=== PATIENT | female | born 1950 | race Caucasian/White ===

== ENCOUNTER → 2017-02-11 | Outpatient (CLI) | payer MEDICARE, OTHER ==
[2017-02-11 13:09] LABS: CHLORIDE,CL 104 mmol/L (98-110); SODIUM,NA 144 mmol/L (136-146)
== END ==
LOC: MW.CHFP 12:00
PROVIDERS: ATTEND Student in an Organized Health Care Education/Training Program
DX: E03.9 Hypothyroidism, unspecified (principal); E87.6 Hypokalemia; F41.9 Anxiety disorder, unspecified; J44.9 Chronic obstructive pulmonary disease, unspecified; R07.9 Chest pain, unspecified
CPT/HCPCS: 36415; 80053; 80061; 84443; G0463

== ENCOUNTER → 2017-02-27 | Outpatient (CLI) | payer MEDICARE, OTHER | LOC: MW.CHFP 10:52 | PROVIDERS: ATTEND Student in an Organized Health Care Education/Training Program | DX: M33.20 Polymyositis, organ involvement unspecified (principal) | CPT/HCPCS: 36415; 85652; G0463 ==

== ENCOUNTER 2017-05-21 10:45 | Emergency (ER) | payer MEDICARE, OTHER ==
[2017-05-21] MEDS ORDERED: Sodium Chloride 0.9% 2.5 ML Syringe FLUSH PRN (10:51)
[2017-05-21] MEDS ORDERED: Sodium Chloride 0.9% 10 ML Syringe FLUSH PRN (10:51)
--- NOTE | 2017-05-21 10:54 | EDM.PDOC ---
ED HPI GENERAL MEDICAL PROBLEM - General Stated Complaint: UNK Time Seen by Provider: 05/21/17 10:53 Source of Information: Reports: Patient History Limitations: Reports: No Limitations - History of Present Illness INITIAL COMMENTS - FREE TEXT/NARRATIVE: HISTORY AND PHYSICAL: []Extent 67-year-old female who is in pulmonary rehabilitation has sudden bouts of dizziness History of Present Illness: []Very pleasant female 15-20 minutes before arrival in the emergency department started having dizziness Review of Systems: As per history of present illness and below otherwise all systems reviewed and negative. Past medical history: As per history of present illness and as reviewed below otherwise noncontributory. Surgical history: As per history of present illness and as reviewed below otherwise noncontributory. Social history: No reported history of drug or alcohol abuse. Family history: As per history of present illness and as reviewed below otherwise noncontributory. Physical exam: Alert and oriented female who is speaking in full sentences answering questions appropriately HEENT: Atraumatic, normocehpalic, pupils reactive, negative for conjunctival pallor or scleral icterus, mucous membranes dry, throat clear, neck supple, nontender, trachea midline. Lungs: Clear to auscultation, breath sounds equal bilaterally, chest non tender. Heart: S1S2, regular, negative for clicks, rubs, or JVD. Abdomen: Soft, nondistended, nontender. Negative for masses or hepatossplenmegaly. Negative for costovertebral tenderness. Pelvis: Stable nontender. Genitourinary: Deferred. Rectal: Deferred Extremities: Atraumatic, negative for cords or calf pain. Neurovascular unremarkable. Neuro: Awake, alert, oriented. Cranial nerves II through XII unremarkable. Cerebellum unremarkable. Motor and sensory unremarkable throughout. Exam nonfocal. Diagnostics: []Head CT is negative CBC CMP troponin Therapeutics: []1 L normal saline Impression: [Vertigo] Plan: [Home Meclizine 25 mg up to 3 times daily as needed for dizziness Follow-up with Dr. Graham next week] Definitive disposition and diagnosis as appropriate pending reevaluation and review of above. Onset: Today, Sudden Duration: Minutes: Location: Reports: Head Severity: Severe Improves with: Reports: None Worsens with: Reports: Movement Context: Reports: Other (was in pulmonary rehab) Associated Symptoms: Reports: No Other Symptoms Temporal Head Pain Score (Numeric/FACES): 9 - Related Data Allergies Allergy/AdvReac Type Severity Reaction Status Date / Time levothyroxine sodium Allergy UNKNOWN Verified 05/21/17 10:47 [From Levothroid] methotrexate Allergy UNKNOWN Verified 05/21/17 10:47 Home Meds: Home Meds Fluticasone/Salmeterol [Advair 500-50] 1 inh IH BID 06/15/14 [History] Tiotropium [Spiriva HandiHaler] 18 mcg IH DAILY 06/15/14 [History] Thyroid [[place] Thyroid] 500 mg PO DAILY 01/02/15 [History] predniSONE [Prednisone] 10 mg PO DAILY 11/23/15 [History] Meclizine [Antivert] 25 mg PO TID PRN #12 tablet 05/21/17 [Rx] Past Medical History HEENT History: Reports: Other (See Below) Other HEENT History: wears corrective glasses fro reading Cardiovascular History: Reports: None Respiratory History: Reports: COPD, Pneumonia, Recurrent Gastrointestinal History: Reports: None Genitourinary History: Reports: UTI, Recurrent [employer] History: Reports: None Musculoskeletal History: Reports: None Neurological History: Reports: Migraines Psychiatric History: Reports: Anxiety, Depression Other Psychiatric History: no medication taken, not seen any Dr. for it Endocrine/Metabolic History: Reports: Hypothyroidism Hematologic History: Reports: Other (See Below) Other Hematologic History: Polymyocytosis Immunologic History: Reports: None Oncologic (Cancer) History: Reports: None Dermatologic History: Reports: None - Infectious Disease History Infectious Disease History: Reports: Chicken Pox, Measles, Mumps, Rubella - Past Surgical History GI Surgical History: Reports: Appendectomy, Other (See Below) Female Surgical History: Reports: Hysterectomy, Oophorectomy, Salpingo- Oophorectomy Musculoskeletal Surgical History: Reports: Other (See Below) Social & Family History - Family History Family Medical History: Noncontributory HEENT: Reports: Cataract Cardiac: Reports: Heart Valve Replacement, [place], Prior Cardiac Arrest Respiratory: Reports: COPD OBGYN: Reports: Musculoskeletal: Reports: Arthritis Neurological: Reports: Dementia Psychiatric: Reports: Anxiety, Depression Endocrine/Metabolic: Reports: Diabetes, type II Oncologic: Reports: Colon, Lung - Tobacco Use Smoking Status *Q: Current Every Day Smoker Years of Tobacco use: 40 Packs/Tins Daily: 1 Used Tobacco, but Quit: No Second Hand Smoke Exposure: Yes - Alcohol Use Days Per Week of Alcohol Use: 0 - Recreational Drug Use Recreational Drug Use: No ED ROS GENERAL - Review of Systems Review Of Systems: ROS reveals no pertinent complaints other than HPI. ED EXAM, DIZZINESS - Physical Exam Exam: See Below (See dictation) Course - Vital Signs Last Recorded V/S: Last Vital Signs Temp 36.8 C 05/21/17 10:49 Pulse 85 05/21/17 11:26 Resp 16 05/21/17 11:26 BP 125/69 05/21/17 11:26 Pulse Ox 98 05/21/17 11:26 - Orders/Labs/Meds Orders: Active Orders 24 hr Category Date Time Status EKG Documentation Completion [RC] STAT Care 05/21/17 10:51 Active UA W/MICROSCOPIC [URIN] Stat Lab 05/21/17 10:51 Uncollected Sodium Chloride 0.9% [Saline Flush] Med 05/21/17 10:51 Active 10 ml FLUSH ASDIRECTED PRN Sodium Chloride 0.9% [Saline Flush] Med 05/21/17 10:51 Active 2.5 ml FLUSH ASDIRECTED PRN Saline Lock Insert [OM.PC] Stat Oth 05/21/17 10:51 Ordered Medication Orders Sodium Chloride (Saline Flush) 10 ml FLUSH ASDIRECTED PRN PRN Reason: Keep Vein Open Sodium Chloride (Saline Flush) 2.5 ml FLUSH ASDIRECTED PRN PRN Reason: Keep Vein Open Labs: Laboratory Tests 05/21/17 05/21/17 05/21/17 Range/Units 10:57 10:57 10:57 WBC 12.51 H (4.0-11.0) K/uL RBC 4.36 (4.30-5.90) M/uL Hgb 13.1 (12.0-16.0) g/dL Hct 38.8 (36.0-46.0) % MCV 89.0 (80.0-98.0) fL MCH 30.0 (27.0-32.0) pg MCHC 33.8 (31.0-37.0) g/dL RDW Std Deviation 49.6 (28.0-62.0) fl RDW Coeff of Doris 15 (11.0-15.0) % Plt Count 359 (150-400) K/uL MPV 9.60 (7.40-12.00) fL Neut % (Auto) 83.7 H (48.0-80.0) % Lymph % (Auto) 8.2 L (16.0-40.0) % [place] % (Auto) 7.4 (0.0-15.0) % Eos % (Auto) 0.5 (0.0-7.0) % Baso % (Auto) 0.2 (0.0-1.5) % Neut # (Auto) 10.5 H (1.4-5.7) K/uL Lymph # (Auto) 1.0 (0.6-2.4) K/uL [place] # (Auto) 0.9 H (0.0-0.8) K/uL Eos # (Auto) 0.1 (0.0-0.7) K/uL Baso # (Auto) 0.0 (0.0-0.1) K/uL Nucleated RBC % 0.0 /100WBC Nucleated RBCs # 0 K/uL Sodium 139 (136-146) mmol/L Potassium 3.5 (3.5-5.1) mmol/L Chloride 103 (98-110) mmol/L Carbon Dioxide 22 (21-31) mmol/L BUN 9 (6.0-23.0) mg/dL Creatinine 0.8 (0.6-1.5) mg/dL Est Cr Clr Drug Dosing 57.66 mL/min Estimated GFR (MDRD) > 60.0 ml/min Glucose 88 (60-110) mg/dL Calcium 8.7 L (8.8-10.8) mg/dL Total Bilirubin 0.3 (0.1-1.5) mg/dL AST 14 (5-40) IU/L ALT 13 (8-54) IU/L Alkaline Phosphatase 98 (40-150) Troponin I < 0.10 (0.0-0.29) NG/ML Total Protein 7.1 (6.0-8.0) g/dL Albumin 4.2 (3.4-4.8) g/dL Globulin 2.9 (2.0-3.5) g/dL Albumin/Globulin Ratio 1.4 (1.3-2.8) Meds: Medications Generic Name Dose Route Start Last Admin Trade Name Freq PRN Reason Stop Dose Admin Sodium Chloride 10 ml 05/21/17 10:51 Saline Flush FLUSH ASDIRECTED PRN Keep Vein Open Sodium Chloride 2.5 ml 05/21/17 10:51 Saline Flush FLUSH ASDIRECTED PRN Keep Vein Open Discontinued Medications Generic Name Dose Route Start Last Admin Trade Name Freq PRN Reason Stop Dose Admin Sodium Chloride 1,000 mls @ 999 mls/hr 05/21/17 10:59 05/21/17 11:22 Normal Saline IV 05/21/17 11:59 999 mls/hr STAT ONE Administration Departure - Departure Time of Disposition: 12:16 Disposition: Home, Self-Care 01 Condition: Good Clinical Impression: Vertigo - Discharge Information Prescriptions: Meclizine [Antivert] 25 mg PO TID PRN #12 tablet PRN Reason: Dizziness Additional Instructions: The following information is given to patients seen in the emergency department who are being discharged to home. This information is to outline your options for follow-up care. We provide all patients seen in our emergency department with a follow-up referral. The need for follow-up, as well as the timing and circumstances, are variable depending upon the specifics of your emergency department visit. If you don't have a primary care physician on staff, we will provide you with a referral. We always advise you to contact your personal physician following an emergency department visit to inform them of the circumstance of the visit and for follow-up with them and/or the need for any referrals to a consulting specialist. The emergency department will also refer you to a specialist when appropriate. This referral assures that you have the opportunity for followup care with a specialist. All of these measure are taken in an effort to provide you with optimal care, which includes your followup. Under all circumstances we always encourage you to contact your private physician who remains a resource for coordinating your care. When calling for followup care, please make the office aware that this follow-up is from your recent emergency room visit. If for any reason you are refused follow-up, please contact the [facility] emergency department at and asked to speak to the emergency department charge nurse. Follow-up with Dr. Graham next week please call for an appointment Meclizine has been electronically sent to your pharmacy service drug. - My Orders Last 24 Hours: My Active Orders 05/21/17 10:51 EKG Documentation Completion [RC] STAT UA W/MICROSCOPIC [URIN] Stat Sodium Chloride 0.9% [Saline Flush] 10 ml FLUSH ASDIRECTED PRN Sodium Chloride 0.9% [Saline Flush] 2.5 ml FLUSH ASDIRECTED PRN Saline Lock Insert [OM.PC] Stat - Assessment/Plan Last 24 Hours: My Active Orders 05/21/17 10:51 EKG Documentation Completion [RC] STAT UA W/MICROSCOPIC [URIN] Stat Sodium Chloride 0.9% [Saline Flush] 10 ml FLUSH ASDIRECTED PRN Sodium Chloride 0.9% [Saline Flush] 2.5 ml FLUSH ASDIRECTED PRN Saline Lock Insert [OM.PC] Stat
[2017-05-21] MEDS ORDERED: Sodium Chloride 0.9% 1,000 ML IV ONE (10:59)
--- NOTE | 2017-05-21 11:36 | CT ---
CT brain scan/clinical history dizziness and headache after exercise Trouble computed tomographic sections of the brain were acquired without intravenous contrast Findings: The ventricles and sulci are normal. There is no evidence of acute mass edema hemorrhage o r space-occupying abnormality. Impression: Normal CT brain scan
[2017-05-21 11:38] LABS: CHLORIDE,CL 103 mmol/L (98-110); SODIUM,NA 139 mmol/L (136-146)
[2017-05-21 13:14] VITALS: BP 119/55
== END 2017-05-21 13:12 | disposition home or self-care (01) ==
LOC: MW.ED 10:45
DX: R42 Dizziness and giddiness (principal); J44.9 Chronic obstructive pulmonary disease, unspecified; E03.9 Hypothyroidism, unspecified; F17.210 Nicotine dependence, cigarettes, uncomplicated; Z90.49 Acquired absence of other specified parts of digestive tract; Z88.8 Allergy status to other drugs, medicaments and biological substances; Z87.01 Personal history of pneumonia (recurrent); Z87.440 Personal history of urinary (tract) infections; Z90.710 Acquired absence of both cervix and uterus; Z79.899 Other long term (current) drug therapy
CPT/HCPCS: 36415; 70450; 80053; 81001; 84484; 85025; 93005; 96360; 99284; J7040; 99283

== ENCOUNTER 2017-09-05 22:20 | Inpatient (IN) | payer MEDICARE, OTHER ==
[2017-09-05] MEDS ORDERED: Sodium Chloride 0.9% 1,000 ML IV ONE (22:32)
[2017-09-05] MEDS ORDERED: methylPREDNISolone Sodium Succinate 125 MG/2 ML SDV IVPUSH ONE (22:33)
[2017-09-05] MEDS ORDERED: Albuterol/Ipratropium 3.0-0.5 MG/3 ML Neb Soln NEB ONE (22:33)
--- NOTE | 2017-09-05 22:35 | EDM.PDOC ---
ED HPI GENERAL MEDICAL PROBLEM - General Chief Complaint: Respiratory Problem Stated Complaint: SHAKES,HARD TIME BREATHING Time Seen by Provider: 09/05/17 22:34 Source of Information: Reports: Patient - History of Present Illness INITIAL COMMENTS - FREE TEXT/NARRATIVE: HISTORY AND PHYSICAL: History of present illness: [Patient presents short of breath she has a history of COPD and significant smoking history for packs daily for 50 years, labored breathing on arrival with slight wheeze her chest was tight on examination did provide DuoNeb and Solu- Medrol which has improved symptoms she is satting 90% on 2 L nasal cannula able to speak full sentences no distress ] Review of systems: As per history of present illness and below otherwise all systems reviewed and negative. Past medical history: As per history of present illness and as reviewed below otherwise noncontributory. Surgical history: As per history of present illness and as reviewed below otherwise noncontributory. Social history: No reported history of drug or alcohol abuse. Family history: As per history of present illness and as reviewed below otherwise noncontributory. Physical exam: HEENT: Atraumatic, normocephalic, pupils reactive, negative for conjunctival pallor or scleral icterus, mucous membranes moist, throat clear, neck supple, nontender, trachea midline. Lungs: Clear to auscultation, breath sounds equal bilaterally, chest nontender. Post DuoNeb Heart: S1S2, regular, negative for clicks, rubs, or JVD. Abdomen: Soft, nondistended, nontender. Negative for masses or hepatosplenomegaly. Negative for costovertebral tenderness. Pelvis: Stable nontender. Genitourinary: Deferred. Rectal: Deferred. Extremities: Atraumatic, negative for cords or calf pain. Neurovascular unremarkable. Neuro: Awake, alert, oriented. Cranial nerves II through XII unremarkable. Cerebellum unremarkable. Motor and sensory unremarkable throughout. Exam nonfocal. Diagnostics: []Lab as below EKG Chest 1 view Therapeutics: []Total saline TKO Solu-Medrol 125 mg IV DuoNeb Impression: []Shortness of breath COPD exacerbation Definitive disposition and diagnosis as appropriate pending reevaluation and review of above. - Related Data Allergies Allergy/AdvReac Type Severity Reaction Status Date / Time levothyroxine sodium Allergy UNKNOWN Verified 09/05/17 22:25 [From Levothroid] methotrexate Allergy UNKNOWN Verified 09/05/17 22:25 Home Meds: Home Meds Fluticasone/Salmeterol [Advair 500-50] 1 inh IH BID 06/15/14 [History] Tiotropium [Spiriva HandiHaler] 18 mcg IH DAILY 06/15/14 [History] Thyroid [[place] Thyroid] 500 mg PO DAILY 01/02/15 [History] predniSONE [Prednisone] 10 mg PO DAILY 11/23/15 [History] Meclizine [Antivert] 25 mg PO TID PRN #12 tablet 05/21/17 [Rx] Levofloxacin 750 mg PO DAILY 09/05/17 [History] Past Medical History HEENT History: Reports: Other (See Below) Other HEENT History: wears corrective glasses fro reading Cardiovascular History: Reports: None Respiratory History: Reports: COPD, Pneumonia, Recurrent Gastrointestinal History: Reports: None Genitourinary History: Reports: UTI, Recurrent SU[employer] History: Reports: None Musculoskeletal History: Reports: None Neurological History: Reports: Migraines Psychiatric History: Reports: Anxiety, Depression Other Psychiatric History: no medication taken, not seen any DrCharles for it Endocrine/Metabolic History: Reports: Hypothyroidism Hematologic History: Reports: Other (See Below) Other Hematologic History: Polymyocytosis Immunologic History: Reports: None Oncologic (Cancer) History: Reports: None Dermatologic History: Reports: None - Infectious Disease History Infectious Disease History: Reports: Chicken Pox, Measles, Mumps, Rubella - Past Surgical History Head Surgeries/Procedures: Reports: None HEENT Surgical History: Reports: None Respiratory Surgical History: Reports: None GI Surgical History: Reports: Appendectomy, Other (See Below) Female Surgical History: Reports: Hysterectomy, Oophorectomy, Salpingo- Oophorectomy Musculoskeletal Surgical History: Reports: Other (See Below) Social & Family History - Family History Family Medical History: Noncontributory HEENT: Reports: Cataract Cardiac: Reports: Heart Valve Replacement, [place], Prior Cardiac Arrest Respiratory: Reports: COPD OBGYN: Reports: Musculoskeletal: Reports: Arthritis Neurological: Reports: Dementia Psychiatric: Reports: Anxiety, Depression Endocrine/Metabolic: Reports: Diabetes, type II Oncologic: Reports: Colon, Lung - Tobacco Use Smoking Status *Q: Former Smoker Years of Tobacco use: 40 Packs/Tins Daily: 1 Used Tobacco, but Quit: Yes Month Tobacco Last Used: 10 Second Hand Smoke Exposure: Yes - Caffeine Use Caffeine Use: Reports: Soda - Alcohol Use Days Per Week of Alcohol Use: 0 - Recreational Drug Use Recreational Drug Use: No ED ROS GENERAL - Review of Systems Review Of Systems: ROS reveals no pertinent complaints other than HPI. ED EXAM, GENERAL - Physical Exam Exam: See Below Course - Vital Signs Last Recorded V/S: Last Vital Signs Temp 98.3 F 09/05/17 23:50 Pulse 116 H 09/05/17 23:50 Resp 18 09/05/17 23:50 BP 124/62 09/05/17 23:50 Pulse Ox 93 L 09/05/17 23:50 - Orders/Labs/Meds Orders: Active Orders 24 hr Category Date Time Status EKG Documentation Completion [RC] STAT Care 09/05/17 22:33 Active RT Aerosol Therapy [RC] ASDIRECTED Care 09/05/17 22:34 Active Chest 1V Frontal [CR] Stat Exams 09/05/17 22:33 Taken Sodium Chloride 0.9% [Normal Saline] 1,000 ml Med 09/05/17 22:32 Active IV STAT Medication Orders Sodium Chloride (Normal Saline) 1,000 mls @ 30 mls/hr IV STAT ONE Stop: 09/07/17 07:51 Last Admin: 09/05/17 22:52 Dose: 30 mls/hr Labs: Laboratory Tests 09/05/17 09/05/17 09/05/17 Range/Units 22:48 22:48 22:48 WBC 14.14 H (4.0-11.0) K/uL RBC 3.90 L (4.30-5.90) M/uL Hgb 11.2 L (12.0-16.0) g/dL Hct 33.7 L (36.0-46.0) % MCV 86.4 (80.0-98.0) fL MCH 28.7 (27.0-32.0) pg MCHC 33.2 (31.0-37.0) g/dL RDW Std Deviation 45.1 (28.0-62.0) fl RDW Coeff of Doris 15 (11.0-15.0) % Plt Count 363 (150-400) K/uL MPV 9.50 (7.40-12.00) fL Neut % (Auto) 84.5 H (48.0-80.0) % Lymph % (Auto) 6.0 L (16.0-40.0) % [place] % (Auto) 9.4 (0.0-15.0) % Eos % (Auto) 0.0 (0.0-7.0) % Baso % (Auto) 0.1 (0.0-1.5) % Neut # (Auto) 11.9 H (1.4-5.7) K/uL Lymph # (Auto) 0.9 (0.6-2.4) K/uL [place] # (Auto) 1.3 H (0.0-0.8) K/uL Eos # (Auto) 0.0 (0.0-0.7) K/uL Baso # (Auto) 0.0 (0.0-0.1) K/uL Nucleated RBC % 0.0 /100WBC Nucleated RBCs # 0 K/uL INR 1.11 (0.86-1.11) Sodium 136 (136-146) mmol/L Potassium 3.5 (3.5-5.1) mmol/L Chloride 98 (98-110) mmol/L Carbon Dioxide 22 (21-31) mmol/L BUN 14 (6.0-23.0) mg/dL Creatinine 1.1 (0.6-1.5) mg/dL Est Cr Clr Drug Dosing 44.66 mL/min Estimated GFR (MDRD) 49.5 ml/min Glucose 119 H (60-110) mg/dL Calcium 9.4 (8.8-10.8) mg/dL Total Bilirubin 0.4 (0.1-1.5) mg/dL AST 12 (5-40) IU/L ALT 12 (8-54) IU/L Alkaline Phosphatase 94 (40-150) Creatine Kinase 118 (9-236) IU/L CK-MB (CK-2) 6.2 (0-6.6) ng/ml Troponin I < 0.10 (0.0-0.29) NG/ML B-Natriuretic Peptide (<100) PG/ML Total Protein 7.3 (6.0-8.0) g/dL Albumin 4.0 (3.4-4.8) g/dL Globulin 3.3 (2.0-3.5) g/dL Albumin/Globulin Ratio 1.2 L (1.3-2.8) Urine Color Urine Appearance Urine pH (5.0-8.0) Ur Specific [place] (1.001-1.035) Urine Protein (NEGATIVE) mg/dL Urine Glucose (UA) (NEGATIVE) mg/dL Urine Ketones (NEGATIVE) mg/dL Urine Occult Blood (NEGATIVE) Urine Nitrite (NEGATIVE) Urine Bilirubin (NEGATIVE) Urine Urobilinogen (<2.0) EU/dL Ur Leukocyte Esterase (NEGATIVE) Urine RBC (0-2/HPF) Urine WBC (0-5/HPF) Ur Epithelial Cells (NONE-FEW) Urine Bacteria (NEGATIVE) 09/05/17 09/05/17 Range/Units 22:48 23:38 WBC (4.0-11.0) K/uL RBC (4.30-5.90) M/uL Hgb (12.0-16.0) g/dL Hct (36.0-46.0) % MCV (80.0-98.0) fL MCH (27.0-32.0) pg MCHC (31.0-37.0) g/dL RDW Std Deviation (28.0-62.0) fl RDW Coeff of Doris (11.0-15.0) % Plt Count (150-400) K/uL MPV (7.40-12.00) fL Neut % (Auto) (48.0-80.0) % Lymph % (Auto) (16.0-40.0) % [place] % (Auto) (0.0-15.0) % Eos % (Auto) (0.0-7.0) % Baso % (Auto) (0.0-1.5) % Neut # (Auto) (1.4-5.7) K/uL Lymph # (Auto) (0.6-2.4) K/uL [place] # (Auto) (0.0-0.8) K/uL Eos # (Auto) (0.0-0.7) K/uL Baso # (Auto) (0.0-0.1) K/uL Nucleated RBC % /100WBC Nucleated RBCs # K/uL INR (0.86-1.11) Sodium (136-146) mmol/L Potassium (3.5-5.1) mmol/L Chloride (98-110) mmol/L Carbon Dioxide (21-31) mmol/L BUN (6.0-23.0) mg/dL Creatinine (0.6-1.5) mg/dL Est Cr Clr Drug Dosing mL/min Estimated GFR (MDRD) ml/min Glucose (60-110) mg/dL Calcium (8.8-10.8) mg/dL Total Bilirubin (0.1-1.5) mg/dL AST (5-40) IU/L ALT (8-54) IU/L Alkaline Phosphatase (40-150) Creatine Kinase (9-236) IU/L CK-MB (CK-2) (0-6.6) ng/ml Troponin I (0.0-0.29) NG/ML B-Natriuretic Peptide < 15 (<100) PG/ML Total Protein (6.0-8.0) g/dL Albumin (3.4-4.8) g/dL Globulin (2.0-3.5) g/dL Albumin/Globulin Ratio (1.3-2.8) Urine Color YELLOW Urine Appearance CLEAR Urine pH 6.0 (5.0-8.0) Ur Specific [place] 1.010 (1.001-1.035) Urine Protein NEGATIVE (NEGATIVE) mg/dL Urine Glucose (UA) NEGATIVE (NEGATIVE) mg/dL Urine Ketones NEGATIVE (NEGATIVE) mg/dL Urine Occult Blood TRACE-INTACT (NEGATIVE) Urine Nitrite NEGATIVE (NEGATIVE) Urine Bilirubin NEGATIVE (NEGATIVE) Urine Urobilinogen 0.2 (<2.0) EU/dL Ur Leukocyte Esterase NEGATIVE (NEGATIVE) Urine RBC 0-3 (0-2/HPF) Urine WBC 0-2 (0-5/HPF) Ur Epithelial Cells MODERATE (NONE-FEW) Urine Bacteria FEW (NEGATIVE) Meds: Medications Generic Name Dose Route Start Last Admin Trade Name Freq PRN Reason Stop Dose Admin Sodium Chloride 1,000 mls @ 30 mls/hr 09/05/17 22:32 09/05/17 22:52 Normal Saline IV 09/07/17 07:51 30 mls/hr STAT ONE Administration Discontinued Medications Generic Name Dose Route Start Last Admin Trade Name Freq PRN Reason Stop Dose Admin Albuterol/Ipratropium 3 ml 09/05/17 22:33 09/05/17 22:52 Duoneb 3.0-0.5 Mg/3 Ml NEB 09/05/17 22:34 3 ml ONETIME ONE Administration Methylprednisolone Sodium Succinate 125 mg 09/05/17 22:33 09/05/17 22:51 Solu-Medrol IVPUSH 09/05/17 22:34 125 mg ONETIME ONE Administration Departure - Departure Time of Disposition: 00:11 Disposition: Admitted As Inpatient 66 Condition: Fair Clinical Impression: COPD exacerbation - Discharge Information Forms: ED Department Discharge - My Orders Last 24 Hours: My Active Orders 09/05/17 22:32 Sodium Chloride 0.9% [Normal Saline] 1,000 ml IV STAT 09/05/17 22:33 EKG Documentation Completion [RC] STAT Chest 1V Frontal [CR] Stat 09/05/17 22:34 RT Aerosol Therapy [RC] ASDIRECTED - Assessment/Plan Last 24 Hours: My Active Orders 09/05/17 22:32 Sodium Chloride 0.9% [Normal Saline] 1,000 ml IV STAT 09/05/17 22:33 EKG Documentation Completion [RC] STAT Chest 1V Frontal [CR] Stat 09/05/17 22:34 RT Aerosol Therapy [RC] ASDIRECTED
[2017-09-05 23:21] LABS: CHLORIDE,CL 98 mmol/L (98-110); SODIUM,NA 136 mmol/L (136-146)
[2017-09-06] MEDS ORDERED: Sodium Chloride 0.9% 2.5 ML Syringe FLUSH SCH (01:45)
[2017-09-06] MEDS: methylPREDNISolone Sodium Succinate 125 MG/2 ML SDV IVPUSH SCH ×4 (04:27→21:41)
[2017-09-06] MEDS: Acetaminophen 325 MG Tab PO PRN (04:29)
[2017-09-06] MEDS ORDERED: Albuterol/Ipratropium 3.0-0.5 MG/3 ML Neb Soln NEB SCH (06:00)
[2017-09-06] MEDS ORDERED: Thyroid 60 MG Tab PO SCH (09:00)
--- NOTE | 2017-09-06 09:51 | CR ---
EXAM DATE: 09/06/17 PATIENT'S AGE: 67 Patient: MEDINA SANCHES Facility: [place], [place] Site . Site : 1950 Study: XRay Chest [id number]/25/2017 11:15:07 PM Ordering Physician: Josesito Fritz Final Report: INDICATION: sob TECHNIQUE: Chest 1 view. COMPARISON: None. FINDINGS: Cardiovascular and mediastinum: Heart size and vasculature are normal in caliber and appearance. Mediastinum is within normal limits. Lungs and pleural space: Lungs are clear. No sign of infiltrate or mass. No sign of pleural effusion. No pneumothorax. Bones and soft tissues: No significant findings. IMPRESSION: Unremarkable chest. Dictated by: Brian Wayne MD @ 09/05/2017 23:54:25 (Electronic Signature) Report Signed by Proxy. [facility] MEM[facility]IAL MEDICAL CENTERMatthieu
[2017-09-06] MEDS: Albuterol/Ipratropium 3.0-0.5 MG/3 ML Neb Soln NEB SCH ×2 (11:35→18:28)
[2017-09-06] MEDS ORDERED: Meclizine 25 MG Tab PO PRN (13:06)
--- NOTE | 2017-09-06 13:19 | PCM.HP ---
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 She also c/o of abdominal pain across the belly , epigastric and RUQ . She has cough productive of green phlegm and currently smoking. Did not have a COPD exac for the past 1 y and 1/2 Onset of Symptoms: Reports: Gradual Duration of Symptoms: Reports: Day(s): Abdominal Pain Score (Numeric/FACES): 4 - Related Data Allergies/Adverse Reactions: Allergies Allergy/AdvReac Type Severity Reaction Status Date / Time levothyroxine sodium Allergy UNKNOWN Verified 09/05/17 22:25 [From Levothroid] methotrexate Allergy UNKNOWN Verified 09/05/17 22:25 Home Medications: Home Meds Tiotropium [Spiriva HandiHaler] 18 mcg IH DAILY 06/15/14 [History] Thyroid [[place] Thyroid] 30 mg PO DAILY 01/02/15 [History] predniSONE [Prednisone] 10 mg PO DAILY 11/23/15 [History] Meclizine [Antivert] 25 mg PO TID PRN #12 tablet 05/21/17 [Rx] Levofloxacin 750 mg PO DAILY 09/05/17 [History] Fluticasone Propionate 2 sprays NASBOTH DAILY 09/06/17 [History] Past Medical History HEENT History: Reports: Other (See Below) Other HEENT History: wears corrective glasses fro reading Cardiovascular History: Reports: None Respiratory History: Reports: COPD, Pneumonia, Recurrent Gastrointestinal History: Reports: None Genitourinary History: Reports: UTI, Recurrent [employer] History: Reports: None Musculoskeletal History: Reports: None Neurological History: Reports: Migraines Psychiatric History: Reports: Anxiety, Depression Other Psychiatric History: no medication taken, not seen any DrCharles for it Endocrine/Metabolic History: Reports: Hypothyroidism Hematologic History: Reports: Other (See Below) Other Hematologic History: Polymyocytosis Immunologic History: Reports: None Oncologic (Cancer) History: Reports: None Dermatologic History: Reports: None - Infectious Disease History Infectious Disease History: Reports: Chicken Pox, Measles, Mumps - Past Surgical History Head Surgeries/Procedures: Reports: None HEENT Surgical History: Reports: None Respiratory Surgical History: Reports: None GI Surgical History: Reports: Appendectomy, Other (See Below) Female Surgical History: Reports: Hysterectomy, Oophorectomy, Salpingo- Oophorectomy Musculoskeletal Surgical History: Reports: Other (See Below) Social & Family History - Family History Family Medical History: Noncontributory HEENT: Reports: Cataract Cardiac: Reports: Heart Valve Replacement, [place], Prior Cardiac Arrest Respiratory: Reports: COPD OBGYN: Reports: Musculoskeletal: Reports: Arthritis Neurological: Reports: Dementia Psychiatric: Reports: Anxiety, Depression Endocrine/Metabolic: Reports: Diabetes, type II Oncologic: Reports: Colon, Lung - Tobacco Use Smoking Status *Q: Former Smoker Years of Tobacco use: 50 Packs/Tins Daily: 1 Used Tobacco, but Quit: No Month Tobacco Last Used: 10 Second Hand Smoke Exposure: No - Caffeine Use Caffeine Use: Reports: Soda - Alcohol Use Days Per Week of Alcohol Use: 0 - Recreational Drug Use Recreational Drug Use: No H&P Review of Systems - Review of Systems: Review Of Systems: See Below General: Reports: Fever, Malaise, Weakness HEENT: Reports: No Symptoms Pulmonary: Reports: Shortness of Breath, Wheezing, Cough, Sputum (green) Cardiovascular: Reports: Edema. Denies: Chest Pain Gastrointestinal: Reports: Abdominal Pain, Nausea. Denies: Constipation, Diarrhea Genitourinary: Reports: No Symptoms Skin: Reports: No Symptoms Psychiatric: Reports: Anxiety Neurological: Reports: No Symptoms Hematologic/Lymphatic: Reports: No Symptoms Immunologic: Reports: No Symptoms Exam - Exam Exam: See Below - Vital Signs Vital Signs: Last Vital Signs Temp 98.5 F 09/06/17 12:00 Pulse 98 09/06/17 12:00 Resp 20 09/06/17 12:00 BP 124/60 09/06/17 12:00 Pulse Ox 90 L 09/06/17 12:00 Weight: 133 lb 1.595 oz - Exam Quality Assessment: Supplemental Oxygen General: Alert, Oriented HEENT: Conjunctiva Clear, EACs Clear, EOMI Neck: Supple, Trachea Midline Cardiovascular: Regular Rate, Regular Rhythm, Normal S1, Normal S2, Tachycardia GI/Abdominal Exam: No Distention, No Mass, Guarding, Tender (epigastru , RUq) Back Exam: Normal Inspection Extremities: Normal Inspection Skin: Warm, Dry, Intact Neurological: Cranial Nerves Intact Neuro Extensive - Mental Status: Alert, Oriented x3 Psychiatric: Alert, Normal Affect - Patient Data Lab Results Last 24 hrs: Laboratory Results - last 24 hr 09/06/17 09/06/17 Range/Units 05:51 05:51 WBC 13.55 H (4.0-11.0) K/uL RBC 3.70 L (4.30-5.90) M/uL Hgb 10.5 L (12.0-16.0) g/dL Hct 32.1 L (36.0-46.0) % MCV 86.8 (80.0-98.0) fL MCH 28.4 (27.0-32.0) pg MCHC 32.7 (31.0-37.0) g/dL RDW Std Deviation 45.8 (28.0-62.0) fl RDW Coeff of Doris 15 (11.0-15.0) % Plt Count 349 (150-400) K/uL MPV 9.30 (7.40-12.00) fL Neut % (Auto) 91.2 H (48.0-80.0) % Lymph % (Auto) 5.8 L (16.0-40.0) % [place] % (Auto) 2.9 (0.0-15.0) % Eos % (Auto) 0.0 (0.0-7.0) % Baso % (Auto) 0.1 (0.0-1.5) % Neut # (Auto) 12.4 H (1.4-5.7) K/uL Lymph # (Auto) 0.8 (0.6-2.4) K/uL [place] # (Auto) 0.4 (0.0-0.8) K/uL Eos # (Auto) 0.0 (0.0-0.7) K/uL Baso # (Auto) 0.0 (0.0-0.1) K/uL Nucleated RBC % 0.0 /100WBC Nucleated RBCs # 0 K/uL Sodium 138 (136-146) mmol/L Potassium 4.2 (3.5-5.1) mmol/L Chloride 100 (98-110) mmol/L Carbon Dioxide 25 (21-31) mmol/L BUN 15 (6.0-23.0) mg/dL Creatinine 1.1 (0.6-1.5) mg/dL Est Cr Clr Drug Dosing 44.66 mL/min Estimated GFR (MDRD) 49.5 ml/min Glucose 162 H (60-110) mg/dL Calcium 9.2 (8.8-10.8) mg/dL Result Diagrams: 09/06/17 05:51 09/06/17 05:51 *Q Meaningful Use (ADM) - VTE *Q VTE Criteria *Q: - Stroke *Q Stroke Criteria *Q: - AMI *Q AMI Criteria *Q: - Problem List (1) COPD exacerbation SNOMED Code(s): 962870057097849 ICD Code: J44.1 - CHRONIC OBSTRUCTIVE PULMONARY DISEASE W (ACUTE) EXACERBATION Status: Acute Current Visit: Yes (2) COPD (chronic obstructive pulmonary disease) SNOMED Code(s): 44661192 ICD Code: J44.9 - CHRONIC OBSTRUCTIVE PULMONARY DISEASE, UNSPECIFIED Status : Acute Current Visit: No (3) Hypothyroid SNOMED Code(s): 64651975 ICD Code: E03.9 - HYPOTHYROIDISM, UNSPECIFIED Status: Acute Current Visit : No (4) Polymyositis SNOMED Code(s): 71550699 ICD Code: M33.20 - POLYMYOSITIS, ORGAN INVOLVEMENT UNSPECIFIED Status: Acute Current Visit: No (5) Cholecystitis SNOMED Code(s): 17943365 ICD Code: K81.9 - CHOLECYSTITIS, UNSPECIFIED Status: Acute Current Visit : Yes (6) Immunosuppressed status SNOMED Code(s): 00683316 ICD Code: D89.9 - DISORDER INVOLVING THE IMMUNE MECHANISM, UNSPECIFIED Status: Acute Current Visit: Yes Problem List Initiated/Reviewed/Updated: Yes Orders Last 24hrs: Active Orders 24 hr Category Date Time Status RT Aerosol Therapy [RC] ASDIRECTED Care 09/06/17 01:42 Inactive RT Aerosol Therapy [RC] ASDIRECTED Care 09/06/17 06:56 Active 2 Gram Sodium Diet [DIET] Diet 09/06/17 Breakfast Active BASIC METABOLIC PANEL,BMP [CHEM] DAILY Lab 09/07/17 05:00 Ordered BASIC METABOLIC PANEL,BMP [CHEM] DAILY Lab 09/08/17 05:00 Ordered BASIC METABOLIC PANEL,BMP [CHEM] DAILY Lab 09/09/17 05:00 Ordered CBC WITH AUTO DIFF [HEME] DAILY Lab 09/07/17 05:00 Ordered CBC WITH AUTO DIFF [HEME] DAILY Lab 09/08/17 05:00 Ordered CBC WITH AUTO DIFF [HEME] DAILY Lab 09/09/17 05:00 Ordered LIPASE [CHEM] Routine Lab 09/06/17 05:51 Received Acetaminophen [Tylenol] Med 09/06/17 01:41 Active 650 mg PO Q6H PRN Albuterol/Ipratropium [DuoNeb 3.0-0.5 MG/3 ML] Med 09/06/17 12:00 Active 3 ml NEB Q6HRRT Fluticasone Propionate [Flonase] Med 09/07/17 09:00 Active 0 gm NASBOTH DAILY Levofloxacin [Levaquin] Med 09/07/17 09:00 Active 750 mg PO DAILY Meclizine [Antivert] Med 09/06/17 13:06 Active 25 mg PO TID PRN Sodium Chloride 0.9% [Saline Flush] Med 09/06/17 01:45 Active 2.5 ml FLUSH ASDIRECTED Thyroid [[place] Thyroid] Med 09/06/17 09:00 Active 30 mg PO DAILY methylPREDNISolone Sod Succ [Solu-MEDROL] Med 09/06/17 04:00 Active 60 mg IVPUSH Q6H Medication Orders Acetaminophen (Tylenol) 650 mg PO Q6H PRN PRN Reason: Pain Last Admin: 09/06/17 04:29 Dose: 650 mg Albuterol/Ipratropium (Duoneb 3.0-0.5 Mg/3 Ml) 3 ml NEB Q6HRRT [facility] Last Admin: 09/06/17 11:35 Dose: 3 ml Fluticasone Propionate (Flonase) 0 gm NASBOTH DAILY [facility] Levofloxacin (Levaquin) 750 mg PO DAILY [facility] Meclizine HCl (Antivert) 25 mg PO TID PRN PRN Reason: Dizziness Methylprednisolone Sodium Succinate (Solu-Medrol) 60 mg IVPUSH Q6H [facility] Last Admin: 09/06/17 10:00 Dose: 60 mg Admin: 09/06/17 04:27 Dose: 60 mg Sodium Chloride (Saline Flush) 2.5 ml FLUSH ASDIRECTED [facility] Thyroid ([place] Thyroid) 30 mg PO DAILY [facility] Assessment/Plan Comment:: Asessment 1)Copd exacerbation 2) cholecystitis 3)gallbladder stone vs polyp 4)polymyositis in remission 5)Hypothyroidism 6) sinus tachycardia@120 tobacco abuse Plan Admit patient to telemetry , solumedrol 60 mg iv q 6 h , duoneb neb treatment , cont. advair, start patient on levofloxacin 750 mg iv q 24 h , metronidazole iv , continue thyroid armur as per reconciliation , heparin sq, protonix 40 mg iv q 12h
[2017-09-06] MEDS: Pantoprazole 40 MG Vial IVPUSH SCH (13:50)
[2017-09-06] MEDS: Thyroid 60 MG Tab PO SCH (13:50)
[2017-09-06] MEDS: metroNIDAZOLE/Normal Saline 500 MG in Premix Bag 1 BAG IV SCH ×2 (13:50→20:35)
[2017-09-06] MEDS ORDERED: Sodium Chloride 0.45% 1,000 ML IV SCH (14:00)
[2017-09-06] MEDS ORDERED: Levofloxacin/Dextrose 5%-Water 750 MG in Premix Bag 1 BAG IV ONE (16:52)
[2017-09-06] MEDS: Nicotine 21 MG/24 Hr Patch TRDERM SCH (17:09)
[2017-09-06] MEDS ORDERED: Sodium Chloride 0.9% 1,000 ML IV SCH (22:00)
[2017-09-07] MEDS: Albuterol/Ipratropium 3.0-0.5 MG/3 ML Neb Soln NEB SCH ×6 (00:44→21:30)
[2017-09-07] MEDS: Pantoprazole 40 MG Vial IVPUSH SCH ×2 (00:47→14:07)
[2017-09-07] MEDS: metroNIDAZOLE/Normal Saline 500 MG in Premix Bag 1 BAG IV SCH ×4 (02:03→20:32)
[2017-09-07] MEDS: methylPREDNISolone Sodium Succinate 125 MG/2 ML SDV IVPUSH SCH ×4 (04:23→22:33)
[2017-09-07] MEDS: Fluticasone Propionate Nasal Spray 16 GM Bottle NASBOTH SCH (08:16)
[2017-09-07] MEDS: Nicotine 21 MG/24 Hr Patch TRDERM SCH (08:17)
[2017-09-07] MEDS: Thyroid 60 MG Tab PO SCH (08:17)
[2017-09-07] MEDS ORDERED: Levofloxacin 250 MG Tab PO SCH (09:00)
--- NOTE | 2017-09-07 10:23 | PCM.PN ---
- General Info Date of Service: 09/07/17 Admission Dx/Problem (Free Text): Admission Diagnosis/Problem Admission Diagnosis/Problem COPD, Moderate chronic obstructive pulmonary disease, abdominal pain Subjective Update: Doing fair this morning. Still having some SOB and SOB with ambulating. No chest pain. RUQ and LLQ pain, tolerating diet. Functional Status: Reports: Pain Controlled, Tolerating Diet, Ambulating, Urinating - Review of Systems General: Reports: No Symptoms. Denies: Fever Pulmonary: Reports: Shortness of Breath, Cough, Sputum, Wheezing. Denies: Hemoptysis Cardiovascular: Reports: No Symptoms. Denies: Chest Pain, Palpitations Gastrointestinal: Reports: Abdominal Pain, Decreased Appetite. Denies: Nausea, Vomiting Genitourinary: Reports: No Symptoms. Denies: Dysuria, Frequency, Burning Neurological: Reports: No Symptoms Psychiatric: Reports: No Symptoms - Patient Data Vitals - Most Recent: Last Vital Signs Temp 98.3 F 09/07/17 08:00 Pulse 102 H 09/07/17 08:00 Resp 20 09/07/17 08:00 BP 143/68 H 09/07/17 08:00 Pulse Ox 87 L 09/07/17 08:00 Weight - Most Recent: 60.373 kg I&O - Last 24 Hours: Intake & Output 09/06/17 09/07/17 09/07/17 22:59 06:59 14:59 Intake Total 1016 1134 Output Total 700 500 Balance 316 634 Lab Results Last 24 Hours: Laboratory Results - last 24 hr 09/06/17 09/07/17 09/07/17 Range/Units 05:51 05:30 05:30 WBC 17.33 H (4.0-11.0) K/uL RBC 3.81 L (4.30-5.90) M/uL Hgb 10.8 L (12.0-16.0) g/dL Hct 32.9 L (36.0-46.0) % MCV 86.4 (80.0-98.0) fL MCH 28.3 (27.0-32.0) pg MCHC 32.8 (31.0-37.0) g/dL RDW Std Deviation 46.6 (28.0-62.0) fl RDW Coeff of Doris 15 (11.0-15.0) % Plt Count 417 H (150-400) K/uL MPV 9.40 (7.40-12.00) fL Neut % (Auto) 88.3 H (48.0-80.0) % Lymph % (Auto) 6.4 L (16.0-40.0) % [place] % (Auto) 5.2 (0.0-15.0) % Eos % (Auto) 0.0 (0.0-7.0) % Baso % (Auto) 0.1 (0.0-1.5) % Neut # (Auto) 15.3 H (1.4-5.7) K/uL Lymph # (Auto) 1.1 (0.6-2.4) K/uL [place] # (Auto) 0.9 H (0.0-0.8) K/uL Eos # (Auto) 0.0 (0.0-0.7) K/uL Baso # (Auto) 0.0 (0.0-0.1) K/uL Nucleated RBC % 0.0 /100WBC Nucleated RBCs # 0 K/uL Sodium 135 L (136-146) mmol/L Potassium 3.6 (3.5-5.1) mmol/L Chloride 100 (98-110) mmol/L Carbon Dioxide 22 (21-31) mmol/L BUN 18 (6.0-23.0) mg/dL Creatinine 1.1 (0.6-1.5) mg/dL Est Cr Clr Drug Dosing 44.66 mL/min Estimated GFR (MDRD) 49.5 ml/min Glucose 161 H (60-110) mg/dL Calcium 8.7 L (8.8-10.8) mg/dL Lipase 29 (7-80) U/L Med Orders - Current: Current Medications Acetaminophen (Tylenol) 650 mg PO Q6H PRN PRN Reason: Pain Last Admin: 09/06/17 04:29 Dose: 650 mg Albuterol/Ipratropium (Duoneb 3.0-0.5 Mg/3 Ml) 3 ml NEB Q6HRRT [facility] Last Admin: 09/07/17 06:38 Dose: Not Given Fluticasone Propionate (Flonase) 0 gm NASBOTH DAILY [facility] Last Admin: 09/07/17 08:16 Dose: 2 spray Metronidazole 500 mg/ Premix 100 mls @ 100 mls/hr IV Q6H [facility] Last Admin: 09/07/17 08:17 Dose: 100 mls/hr Levofloxacin/Dextrose 750 mg/ (Premix) 150 mls @ 100 mls/hr IV Q24H [facility] Meclizine HCl (Antivert) 25 mg PO TID PRN PRN Reason: Dizziness Methylprednisolone Sodium Succinate (Solu-Medrol) 60 mg IVPUSH Q6H [facility] Last Admin: 09/07/17 09:24 Dose: 60 mg Nicotine (Habitrol) 21 mg TRDERM DAILY [facility] Last Admin: 09/07/17 08:17 Dose: 21 mg Pantoprazole Sodium (Protonix Iv) 40 mg IVPUSH Q12H [facility] Last Admin: 09/07/17 00:47 Dose: 40 mg Sodium Chloride (Saline Flush) 2.5 ml FLUSH ASDIRECTED [facility] Thyroid ([place] Thyroid) 30 mg PO DAILY [facility] Last Admin: 09/07/17 08:17 Dose: 30 mg Discontinued Medications Albuterol/Ipratropium (Duoneb 3.0-0.5 Mg/3 Ml) 3 ml NEB ONETIME ONE Stop: 09/05/17 22:34 Last Admin: 09/05/17 22:52 Dose: 3 ml Albuterol/Ipratropium (Duoneb 3.0-0.5 Mg/3 Ml) 3 ml NEB Q4HRRT [facility] Last Admin: 09/06/17 05:56 Dose: 3 ml Sodium Chloride (Normal Saline) 1,000 mls @ 30 mls/hr IV STAT ONE Stop: 09/07/17 07:51 Last Admin: 09/05/17 22:52 Dose: 30 mls/hr Sodium Chloride (Sodium Chloride 0.45%) 1,000 mls @ 100 mls/hr IV ASDIRECTED [facility] Last Infusion: 09/07/17 00:45 Dose: 100 mls/hr Levofloxacin/Dextrose 750 mg/ (Premix) 150 mls @ 100 mls/hr IV ONETIME ONE Stop: 09/06/17 18:21 Last Admin: 09/06/17 17:09 Dose: 100 mls/hr Sodium Chloride (Normal Saline) 1,000 mls @ 999 mls/hr IV ASDIRECTED [facility] Levofloxacin (Levaquin) 750 mg PO DAILY [facility] Methylprednisolone Sodium Succinate (Solu-Medrol) 125 mg IVPUSH ONETIME ONE Stop: 09/05/17 22:34 Last Admin: 09/05/17 22:51 Dose: 125 mg Thyroid ([place] Thyroid) 30 mg PO DAILY [facility] Last Admin: 09/06/17 13:58 Dose: Not Given - Exam Quality Assessment: Supplemental Oxygen General: Alert, Oriented, Cooperative, No Acute Distress Neck: Supple Lungs: Decreased Breath Sounds (bilateral bases), Rhonchi (bilateral bases), Wheezing (throughout) Cardiovascular: Regular Rate, Regular Rhythm, No Murmurs GI/Abdominal Exam: Normal Bowel Sounds, Soft, No Distention, Tender (RUQ and LLQ tenderness, no masses) Extremities: Normal Inspection, Normal Range of Motion, Non-Tender, No Pedal Edema, Normal Capillary Refill Neurological: No New Focal Deficit Psy/Mental Status: Alert, Normal Affect, Normal Mood - Problem List & Annotations (1) COPD exacerbation SNOMED Code(s): 674917804234961 Code(s): J44.1 - CHRONIC OBSTRUCTIVE PULMONARY DISEASE W (ACUTE) EXACERBATION Status: Acute Current Visit: Yes (2) Cholecystitis SNOMED Code(s): 69263834 Code(s): K81.9 - CHOLECYSTITIS, UNSPECIFIED Status: Acute Current Visit: Yes (3) Hypothyroid SNOMED Code(s): 23564479 Code(s): E03.9 - HYPOTHYROIDISM, UNSPECIFIED Status: Chronic Current Visit: No (4) Polymyositis SNOMED Code(s): 15134453 Code(s): M33.20 - POLYMYOSITIS, ORGAN INVOLVEMENT UNSPECIFIED Status: Chronic Current Visit: No - Problem List Review Problem List Initiated/Reviewed/Updated: Yes - My Orders Last 24 Hours: My Active Orders 09/08/17 17:00 Levofloxacin/Dextrose 5%-Water [Levaquin in D5W 750 MG/150 ML] 750 mg Premix Bag 1 bag IV Q24H - Plan Plan:: This 67 year old female admitted with COPD exacerbation and RUQ abdominal pain 1. COPD exacerbation: Slow improvement. Continue Solumedrol 60 mg IV Q6 hr IV, has had adverse reaction (agitation) with higher doses. Continue Duonebs, will increase to Q4h. Continue Advair. Continue Levaquin for suspected community acquired pneumonia. Recently stopped smoking July 14, continued to encouraged smoking cessation. Keep sats 88% or higher. Wean O2 as possible. 2. Cholecystitis: Abdominal pain continues. Consulted Dr. Vasquez today. Recommended Abdominal CT. Awaiting results. She also recommended NPO for now and continue Levaquin and Flagyl. Possible HIDA tomorrow? 3. Polymyositis: in remission. 4. Hypothyroidism: Stable. Continue [place] Thyroid VTE prophylaxis: Heparin Q12h Dispo: 2-4 days pending improvement.
--- NOTE | 2017-09-07 14:36 | CT ---
CT of the abdomen and pelvis without contrast. HISTORY: Pain TECHNIQUE: Axial CT images were obtained of the abdomen and pelvis without contrast. Coronal and sagi ttal reconstructions obtained. FINDINGS: The lung bases are clear, no pleural effusion. Atelectasis noted within the lung bases. The liver, spleen, adrenal glands, and pancreas appear unremarkable for noncontrast examination. The gallbladder appears normal. There is no bulky retroperitoneal lymphadenopathy. No abdominal ascites. Mild calcified vascular disease. Punctate nonobstructing left renal stone. The large and small bowel are normal in caliber without evidence of obstruction. Appendectomy. There is no bulky pelvic lymphadenopathy. No free fluid. No free air. The urinary bladder appears normal. The visualized osseous structures appear normal. IMPRESSION: No acute findings within the abdomen or pelvis.
--- NOTE | 2017-09-07 17:13 | US ---
EXAM DATE: 09/06/17 PATIENT'S AGE: 67 Patient: MEDINA SANCHES Facility: [place], [place] Site . Site : 1950 Study: US Abdomen [id number] 6:31:35 PM Ordering Physician: Marilyn Hunter Final Report: INDICATION: ABD PAIN FINDINGS: An abdominal ultrasound shows normal size, contour, and echogenicity of the liver. No bile duct dilation with the common bile duct measuring 4 mm. Small, 3 mm, gallstones versus gallbladder wall polyps in a contracted gallbladder. Minimal gallbladder wall thickening. Positive sonographic De La Garza`s sign. No abnormalities identified in the visualized portions of the pancreatic head and body, aorta, IVC, spleen, and kidneys. No hydronephrosis on either side. IMPRESSION: Contracted gallbladder with a few small gallstones versus gallbladder wall polyps. Positive sonographic De La Garza sign. These findings are equivocal for cholecystitis. Dictated by Rikcy Grossman MD @ 09/06/2017 7:32:23 PM Dictated by: Ricky Grossman MD @ 09/06/2017 19:32:32 (Electronic Signature) Report Signed by Proxy. PRATIK
--- NOTE | 2017-09-07 18:17 | PCM.CONS ---
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 She was admitted to the hospitalist service for acute on chronic exacerbation of COPD. She is complaining of epigastric and right upper quadrant pain. She describes feeling a "knot "in her right upper quadrant. She was given steroids and broad-spectrum antibiotics. An ultrasound of the right upper quadrant was equivocal for cholecystitis. She did have cholelithiasis. Her liver function tests were normal. She has slightly elevated white count of 14, 000. Abdominal Pain Score (Numeric/FACES): 4 - Related Data Allergies/Adverse Reactions: Allergies Allergy/AdvReac Type Severity Reaction Status Date / Time levothyroxine sodium Allergy UNKNOWN Verified 09/05/17 22:25 [From Levothroid] methotrexate Allergy UNKNOWN Verified 09/05/17 22:25 Home Medications: Home Meds Tiotropium [Spiriva HandiHaler] 18 mcg IH DAILY 06/15/14 [History] Thyroid [[place] Thyroid] 30 mg PO DAILY 01/02/15 [History] predniSONE [Prednisone] 10 mg PO DAILY 11/23/15 [History] Meclizine [Antivert] 25 mg PO TID PRN #12 tablet 05/21/17 [Rx] Levofloxacin 750 mg PO DAILY 09/05/17 [History] Fluticasone Propionate 2 sprays NASBOTH DAILY 09/06/17 [History] Past Medical History HEENT History: Reports: Other (See Below) Other HEENT History: wears corrective glasses fro reading Cardiovascular History: Reports: None Respiratory History: Reports: COPD, Pneumonia, Recurrent Gastrointestinal History: Reports: None Genitourinary History: Reports: UTI, Recurrent [employer] History: Reports: None Musculoskeletal History: Reports: None Neurological History: Reports: Migraines Psychiatric History: Reports: Anxiety, Depression Other Psychiatric History: no medication taken, not seen any DrCharles for it Endocrine/Metabolic History: Reports: Hypothyroidism Hematologic History: Reports: Other (See Below) Other Hematologic History: Polymyocytosis Immunologic History: Reports: None Oncologic (Cancer) History: Reports: None Dermatologic History: Reports: None - Infectious Disease History Infectious Disease History: Reports: Chicken Pox, Measles, Mumps - Past Surgical History Head Surgeries/Procedures: Reports: None HEENT Surgical History: Reports: None Respiratory Surgical History: Reports: None GI Surgical History: Reports: Appendectomy, Other (See Below) Female Surgical History: Reports: Hysterectomy, Oophorectomy, Salpingo- Oophorectomy Musculoskeletal Surgical History: Reports: Other (See Below) Social & Family History - Family History Family Medical History: Noncontributory HEENT: Reports: Cataract Cardiac: Reports: Heart Valve Replacement, [place], Prior Cardiac Arrest Respiratory: Reports: COPD OBGYN: Reports: Musculoskeletal: Reports: Arthritis Neurological: Reports: Dementia Psychiatric: Reports: Anxiety, Depression Endocrine/Metabolic: Reports: Diabetes, type II Oncologic: Reports: Colon, Lung - Tobacco Use Smoking Status *Q: Former Smoker Years of Tobacco use: 50 Packs/Tins Daily: 1 Used Tobacco, but Quit: No Month Tobacco Last Used: 10 Second Hand Smoke Exposure: No - Caffeine Use Caffeine Use: Reports: Soda - Alcohol Use Days Per Week of Alcohol Use: 0 - Recreational Drug Use Recreational Drug Use: No H&P Review of Systems - Review of Systems: Review Of Systems: ROS reveals no pertinent complaints other than HPI. Exam - Exam Exam: See Below - Vital Signs Vital Signs: Last Vital Signs Temp 36.8 C 09/07/17 14:42 Pulse 91 09/07/17 14:42 Resp 20 09/07/17 14:42 BP 128/75 09/07/17 14:42 Pulse Ox 93 L 09/07/17 14:42 Weight: 60.373 kg - Exam General: Alert, Oriented HEENT: Conjunctiva Clear Lungs: Normal Respiratory Effort Cardiovascular: Regular Rate GI/Abdominal Exam: Soft, Other (Pain with palpation in the left upper and lower quadrant. No De La Garza sign.) - Patient Data Lab Results Last 24 hrs: Laboratory Results - last 24 hr 09/07/17 09/07/17 Range/Units 05:30 05:30 WBC 17.33 H (4.0-11.0) K/uL RBC 3.81 L (4.30-5.90) M/uL Hgb 10.8 L (12.0-16.0) g/dL Hct 32.9 L (36.0-46.0) % MCV 86.4 (80.0-98.0) fL MCH 28.3 (27.0-32.0) pg MCHC 32.8 (31.0-37.0) g/dL RDW Std Deviation 46.6 (28.0-62.0) fl RDW Coeff of Doris 15 (11.0-15.0) % Plt Count 417 H (150-400) K/uL MPV 9.40 (7.40-12.00) fL Neut % (Auto) 88.3 H (48.0-80.0) % Lymph % (Auto) 6.4 L (16.0-40.0) % [place] % (Auto) 5.2 (0.0-15.0) % Eos % (Auto) 0.0 (0.0-7.0) % Baso % (Auto) 0.1 (0.0-1.5) % Neut # (Auto) 15.3 H (1.4-5.7) K/uL Lymph # (Auto) 1.1 (0.6-2.4) K/uL [place] # (Auto) 0.9 H (0.0-0.8) K/uL Eos # (Auto) 0.0 (0.0-0.7) K/uL Baso # (Auto) 0.0 (0.0-0.1) K/uL Nucleated RBC % 0.0 /100WBC Nucleated RBCs # 0 K/uL Sodium 135 L (136-146) mmol/L Potassium 3.6 (3.5-5.1) mmol/L Chloride 100 (98-110) mmol/L Carbon Dioxide 22 (21-31) mmol/L BUN 18 (6.0-23.0) mg/dL Creatinine 1.1 (0.6-1.5) mg/dL Est Cr Clr Drug Dosing 44.66 mL/min Estimated GFR (MDRD) 49.5 ml/min Glucose 161 H (60-110) mg/dL Calcium 8.7 L (8.8-10.8) mg/dL Result Diagrams: 09/07/17 05:30 09/07/17 05:30 Consult PN Assessment/Plan Procedures: Procedures AIRWAY INHALATION TREATMENT (11/23/15) ASSAY OF AMYLASE (11/23/15) ASSAY OF CK (CPK) (11/30/15) ASSAY OF LACTIC ACID (11/23/15) ASSAY OF LIPASE (11/23/15) ASSAY OF TROPONIN QUANT (05/21/17) ASSAY THYROID STIM HORMONE (08/14/17) BLOOD CULTURE FOR BACTERIA (11/23/15) C-REACTIVE PROTEIN HS (02/20/15) CHEST X-RAY 1 VIEW FRONTAL (11/23/15) CHEST X-RAY 2VW FRONTAL&LATL (09/04/17) CO/[place] DIFFUSE CAPACITY (03/25/17) COMPLETE CBC W/AUTO DIFF WBC (09/04/17) COMPREHEN METABOLIC PANEL (05/21/17) CREATINE MB FRACTION (01/01/15) CT ABD & PELVIS W/O CONTRAST (11/23/15) CT HEAD/BRAIN W/O DYE (05/21/17) ELECTROCARDIOGRAM TRACING (05/21/17) EMERGENCY DEPT VISIT (05/21/17) EMERGENCY DEPT VISIT (11/23/15) EMERGENCY DEPT VISIT (01/01/15) EMERGENCY DEPT VISIT (01/01/15) EMERGENCY DEPT VISIT (06/15/14) EVALUATION OF WHEEZING (03/25/17) HT MUSCLE IMAGE SPECT MULT (01/19/14) HYDRATE IV INFUSION ADD-ON (11/23/15) HYDRATION IV INFUSION INIT (05/21/17) LIPID PANEL (08/13/17) METABOLIC PANEL TOTAL CA (01/01/16) MICROBE SUSCEPTIBLE GORDO (11/23/15) RBC SED RATE AUTOMATED (02/27/17) ROUTINE VENIPUNCTURE (09/04/17) SMEAR WET [place] SALINE/INK (12/05/15) THER/PROPH/DIAG INJ SC/IM (01/01/15) THER/PROPH/DIAG IV INF INIT (11/23/15) TX/PRO/DX INJ NEW DRUG ADDON (11/23/15) URINALYSIS AUTO W/SCOPE (05/21/17) URINE BACTERIA CULTURE (11/23/15) URINE CULTURE/COLONY COUNT (11/23/15) VITAMIN B-12 (01/01/16) X-RAY EXAM L-S SPINE 2/3 VWS (08/14/17) X-RAY EXAM OF HIP (06/15/14) X-RAY EXAM OF PELVIS (06/15/14) (1) Abdominal pain SNOMED Code(s): 82127191 Code(s): R10.9 - UNSPECIFIED ABDOMINAL PAIN Current Visit: Yes Problem List Initiated/Reviewed/Updated: Yes Plan: Because of her pain on the left side I ordered a CT of the abdomen pelvis. This showed no acute intra-abdominal process. Given her acute on chronic exacerbation of COPD and steroid use she carries an increased risk of complications with any surgery. Keep her nothing by mouth, continue fluid resuscitation, broad-spectrum antibiotics, and schedule a HIDA scan to be performed tomorrow to definitively rule in/out cholecystitis. If she does have cholecystitis and her abdominal pain is not improving or her clinical status worsens she should be transferred for surgery versus PTC placement.
[2017-09-08] MEDS: Pantoprazole 40 MG Vial IVPUSH SCH ×2 (01:12→13:27)
[2017-09-08] MEDS: Albuterol/Ipratropium 3.0-0.5 MG/3 ML Neb Soln NEB SCH ×6 (01:17→21:51)
[2017-09-08] MEDS: metroNIDAZOLE/Normal Saline 500 MG in Premix Bag 1 BAG IV SCH ×4 (01:19→20:30)
[2017-09-08] MEDS: methylPREDNISolone Sodium Succinate 125 MG/2 ML SDV IVPUSH SCH (03:53)
--- NOTE | 2017-09-08 07:46 | PCM.PN ---
- General Info Date of Service: 09/08/17 Admission Dx/Problem (Free Text): Admission Diagnosis/Problem Admission Diagnosis/Problem COPD, Moderate chronic obstructive pulmonary disease, abdominal pain Subjective Update: Doing ok this am, feeling agitated. Which she reports is from no cigarettes, not eating/drinking, the steroids and being couped up in the hospital. Reports she feels all this started from stopping smoking and she is better off just smoking and plans to restart after she is discharged. This was highly encouraged , but she became agitated. Denies chest pain. SOB has improved. Abdominal pain is in RLQ today, reports years ago she was told she had a spastic colon and tends to have pain in random spots. But the RUQ pain is different. Functional Status: Reports: Pain Controlled, Ambulating, Urinating - Review of Systems General: Reports: Appetite (wants to eat and drink) HEENT: Denies: Sore Throat Pulmonary: Reports: Shortness of Breath (scant, improving.), Cough, Wheezing ( improved greatly) Cardiovascular: Reports: No Symptoms. Denies: Chest Pain Gastrointestinal: Reports: Abdominal Pain (RLQ today, still continues to RUQ intermittently.). Denies: Nausea, Vomiting Genitourinary: Reports: No Symptoms. Denies: Dysuria, Frequency, Burning Neurological: Reports: No Symptoms. Denies: Confusion Psychiatric: Reports: Anxiety, Agitation - Patient Data Vitals - Most Recent: Last Vital Signs Temp 97.8 F 09/08/17 07:43 Pulse 92 09/08/17 07:43 Resp 18 09/08/17 07:43 BP 143/68 H 09/08/17 07:43 Pulse Ox 92 L 09/08/17 07:43 Weight - Most Recent: 60.373 kg I&O - Last 24 Hours: Intake & Output 09/07/17 09/08/17 09/08/17 22:59 06:59 14:59 Intake Total 200 130 Output Total 800 400 Balance -600 -270 Lab Results Last 24 Hours: Laboratory Results - last 24 hr 09/08/17 09/08/17 Range/Units 05:20 05:20 WBC 11.09 H (4.0-11.0) K/uL RBC 3.60 L (4.30-5.90) M/uL Hgb 10.1 L (12.0-16.0) g/dL Hct 31.3 L (36.0-46.0) % MCV 86.9 (80.0-98.0) fL MCH 28.1 (27.0-32.0) pg MCHC 32.3 (31.0-37.0) g/dL RDW Std Deviation 46.6 (28.0-62.0) fl RDW Coeff of Doris 15 (11.0-15.0) % Plt Count 358 (150-400) K/uL MPV 9.30 (7.40-12.00) fL Add Manual Diff YES Neutrophils % (Manual) 88 H (48.0-80.0) % Lymphocytes % (Manual) 9 L (16.0-40.0) % Monocytes % (Manual) 3 (0.0-15.0) % Nucleated RBC % 0.0 /100WBC Absolute Seg Neuts 9.8 H (1.4-5.7) Lymphocytes # (Manual) 1.0 (0.6-2.4) Monocytes # (Manual) 0.3 (0.0-0.8) Nucleated RBCs # 0 K/uL Sodium 141 (136-146) mmol/L Potassium 4.1 (3.5-5.1) mmol/L Chloride 104 (98-110) mmol/L Carbon Dioxide 26 (21-31) mmol/L BUN 22 (6.0-23.0) mg/dL Creatinine 1.0 (0.6-1.5) mg/dL Est Cr Clr Drug Dosing 49.12 mL/min Estimated GFR (MDRD) 55.3 ml/min Glucose 205 H (60-110) mg/dL Calcium 8.2 L (8.8-10.8) mg/dL Med Orders - Current: Current Medications Acetaminophen (Tylenol) 650 mg PO Q6H PRN PRN Reason: Pain Last Admin: 09/06/17 04:29 Dose: 650 mg Albuterol/Ipratropium (Duoneb 3.0-0.5 Mg/3 Ml) 3 ml NEB Q4HRRT [facility] Last Admin: 09/08/17 06:13 Dose: 3 ml Fluticasone Propionate (Flonase) 0 gm NASBOTH DAILY [facility] Last Admin: 09/07/17 08:16 Dose: 2 spray Metronidazole 500 mg/ Premix 100 mls @ 100 mls/hr IV Q6H [facility] Last Admin: 09/08/17 01:19 Dose: 100 mls/hr Levofloxacin/Dextrose 750 mg/ (Premix) 150 mls @ 100 mls/hr IV Q24H [facility] Meclizine HCl (Antivert) 25 mg PO TID PRN PRN Reason: Dizziness Methylprednisolone Sodium Succinate (Solu-Medrol) 60 mg IVPUSH Q6H [facility] Last Admin: 09/08/17 03:53 Dose: 60 mg Nicotine (Habitrol) 21 mg TRDERM DAILY [facility] Last Admin: 09/07/17 08:17 Dose: 21 mg Pantoprazole Sodium (Protonix Iv) 40 mg IVPUSH Q12H [facility] Last Admin: 09/08/17 01:12 Dose: 40 mg Sodium Chloride (Saline Flush) 2.5 ml FLUSH ASDIRECTED [facility] Thyroid ([place] Thyroid) 30 mg PO DAILY [facility] Last Admin: 09/07/17 08:17 Dose: 30 mg Discontinued Medications Albuterol/Ipratropium (Duoneb 3.0-0.5 Mg/3 Ml) 3 ml NEB ONETIME ONE Stop: 09/05/17 22:34 Last Admin: 09/05/17 22:52 Dose: 3 ml Albuterol/Ipratropium (Duoneb 3.0-0.5 Mg/3 Ml) 3 ml NEB Q4HRRT [facility] Last Admin: 09/06/17 05:56 Dose: 3 ml Albuterol/Ipratropium (Duoneb 3.0-0.5 Mg/3 Ml) 3 ml NEB Q6HRRT [facility] Last Admin: 09/07/17 12:26 Dose: 3 ml Sodium Chloride (Normal Saline) 1,000 mls @ 30 mls/hr IV STAT ONE Stop: 09/07/17 07:51 Last Admin: 09/05/17 22:52 Dose: 30 mls/hr Sodium Chloride (Sodium Chloride 0.45%) 1,000 mls @ 100 mls/hr IV ASDIRECTED [facility] Last Infusion: 09/07/17 00:45 Dose: 100 mls/hr Levofloxacin/Dextrose 750 mg/ (Premix) 150 mls @ 100 mls/hr IV ONETIME ONE Stop: 09/06/17 18:21 Last Admin: 09/06/17 17:09 Dose: 100 mls/hr Sodium Chloride (Normal Saline) 1,000 mls @ 999 mls/hr IV ASDIRECTED [facility] Levofloxacin (Levaquin) 750 mg PO DAILY [facility] Methylprednisolone Sodium Succinate (Solu-Medrol) 125 mg IVPUSH ONETIME ONE Stop: 09/05/17 22:34 Last Admin: 09/05/17 22:51 Dose: 125 mg Thyroid ([place] Thyroid) 30 mg PO DAILY [facility] Last Admin: 09/06/17 13:58 Dose: Not Given - Exam Quality Assessment: Supplemental Oxygen (2L NC sating low 90s. ) General: Alert, Oriented, Cooperative, No Acute Distress Neck: Supple Lungs: Clear to Auscultation, Normal Respiratory Effort, Rhonchi (scant to bilateral bases) Cardiovascular: Regular Rate, Regular Rhythm, No Murmurs GI/Abdominal Exam: Normal Bowel Sounds, Soft, No Distention, No Mass, Tender ( RLQ, tender intermittently with coughing or sneezing to RUQ) Extremities: Normal Inspection, Normal Range of Motion, Non-Tender, No Pedal Edema, Normal Capillary Refill Neurological: No New Focal Deficit Psy/Mental Status: Alert, Anxious, Agitated - Problem List & Annotations (1) COPD exacerbation SNOMED Code(s): 686994717036313 Code(s): J44.1 - CHRONIC OBSTRUCTIVE PULMONARY DISEASE W (ACUTE) EXACERBATION Status: Acute Current Visit: Yes (2) Cholecystitis SNOMED Code(s): 89091152 Code(s): K81.9 - CHOLECYSTITIS, UNSPECIFIED Status: Acute Current Visit: Yes (3) Hypothyroid SNOMED Code(s): 18723026 Code(s): E03.9 - HYPOTHYROIDISM, UNSPECIFIED Status: Chronic Current Visit: No (4) Polymyositis SNOMED Code(s): 24997007 Code(s): M33.20 - POLYMYOSITIS, ORGAN INVOLVEMENT UNSPECIFIED Status: Chronic Current Visit: No - Problem List Review Problem List Initiated/Reviewed/Updated: Yes - My Orders Last 24 Hours: My Active Orders 09/07/17 10:28 Consult to Physician [CONS] Routine 09/07/17 10:29 Notify Provider Consults [RC] ASDIRECTED 09/07/17 14:42 Oxygen Therapy [RC] PRN VTE/DVT Education [RC] PER UNIT ROUTINE Vital Signs [RC] Q4H 09/07/17 14:43 Resuscitation Status Routine 09/07/17 15:00 Albuterol/Ipratropium [DuoNeb 3.0-0.5 MG/3 ML] 3 ml NEB Q4HRRT 09/07/17 Lunch Nothing Per Oral Diet [DIET] 09/08/17 17:00 Levofloxacin/Dextrose 5%-Water [Levaquin in D5W 750 MG/150 ML] 750 mg Premix Bag 1 bag IV Q24H - Plan Plan:: This 67 year old female admitted with COPD exacerbation and RUQ abdominal pain 1. COPD exacerbation: Good improvement compared to yesterday. Continue Solumedrol but decrease significantly due to mood changes. Will change to 40 mg IV q12h. Continue Duonebs, will increase to Q4h. Continue Advair. Continue Levaquin for suspected community acquired pneumonia. Recently stopped smoking July 14, continued to encouraged smoking cessation. Keep sats 88% or higher. Wean O2 as possible. 2. Cholecystitis: Some improvement, but abdominal pain continues and is changing locations. Consulted Dr. Vasquez who recommended Abdominal CT, which was negative. She also recommended NPO for now and continue Levaquin and Flagyl. HIDA scan today. 3. Polymyositis: in remission. 4. Hypothyroidism: Stable. Continue [place] Thyroid VTE prophylaxis: Heparin Q12h Dispo: 2-4 days pending improvement.
[2017-09-08] MEDS: Thyroid 60 MG Tab PO SCH (08:52)
[2017-09-08] MEDS: Nicotine 21 MG/24 Hr Patch TRDERM SCH (08:53)
[2017-09-08] MEDS: Fluticasone Propionate Nasal Spray 16 GM Bottle NASBOTH SCH (08:53)
--- NOTE | 2017-09-08 09:02 | PCM.SURGPN ---
- General Info Date of Service: 09/08/17 Functional Status: Reports: Other (She states that her abdominal pain is improved but she continues to still have nausea. Denies fevers or chills. She is on 4 L nasal cannula this morning.) - Review of Systems General: Reports: No Symptoms Pulmonary: Reports: Shortness of Breath (with ambulation), Cough Cardiovascular: Reports: No Symptoms Gastrointestinal: Reports: Nausea - Patient Data Vitals - Most Recent: Last Vital Signs Temp 36.6 C 09/08/17 07:43 Pulse 92 09/08/17 07:43 Resp 18 09/08/17 07:43 BP 143/68 H 09/08/17 07:43 Pulse Ox 92 L 09/08/17 07:43 Weight - Most Recent: 60.373 kg I&O - Last 24 Hours: Intake & Output 09/07/17 09/08/17 09/08/17 22:59 06:59 14:59 Intake Total 200 130 100 Output Total 800 400 Balance -600 -270 100 Lab Results Last 24 Hrs: Laboratory Results - last 24 hr 09/08/17 09/08/17 Range/Units 05:20 05:20 WBC 11.09 H (4.0-11.0) K/uL RBC 3.60 L (4.30-5.90) M/uL Hgb 10.1 L (12.0-16.0) g/dL Hct 31.3 L (36.0-46.0) % MCV 86.9 (80.0-98.0) fL MCH 28.1 (27.0-32.0) pg MCHC 32.3 (31.0-37.0) g/dL RDW Std Deviation 46.6 (28.0-62.0) fl RDW Coeff of Doris 15 (11.0-15.0) % Plt Count 358 (150-400) K/uL MPV 9.30 (7.40-12.00) fL Add Manual Diff YES Neutrophils % (Manual) 88 H (48.0-80.0) % Lymphocytes % (Manual) 9 L (16.0-40.0) % Monocytes % (Manual) 3 (0.0-15.0) % Nucleated RBC % 0.0 /100WBC Absolute Seg Neuts 9.8 H (1.4-5.7) Lymphocytes # (Manual) 1.0 (0.6-2.4) Monocytes # (Manual) 0.3 (0.0-0.8) Nucleated RBCs # 0 K/uL Sodium 141 (136-146) mmol/L Potassium 4.1 (3.5-5.1) mmol/L Chloride 104 (98-110) mmol/L Carbon Dioxide 26 (21-31) mmol/L BUN 22 (6.0-23.0) mg/dL Creatinine 1.0 (0.6-1.5) mg/dL Est Cr Clr Drug Dosing 49.12 mL/min Estimated GFR (MDRD) 55.3 ml/min Glucose 205 H (60-110) mg/dL Calcium 8.2 L (8.8-10.8) mg/dL Med Orders - Current: Current Medications Acetaminophen (Tylenol) 650 mg PO Q6H PRN PRN Reason: Pain Last Admin: 09/06/17 04:29 Dose: 650 mg Albuterol/Ipratropium (Duoneb 3.0-0.5 Mg/3 Ml) 3 ml NEB Q4HRRT [facility] Last Admin: 09/08/17 06:13 Dose: 3 ml Fluticasone Propionate (Flonase) 0 gm NASBOTH DAILY [facility] Last Admin: 09/08/17 08:53 Dose: 2 spray Metronidazole 500 mg/ Premix 100 mls @ 100 mls/hr IV Q6H [facility] Last Admin: 09/08/17 07:52 Dose: 100 mls/hr Levofloxacin/Dextrose 750 mg/ (Premix) 150 mls @ 100 mls/hr IV Q24H [facility] Meclizine HCl (Antivert) 25 mg PO TID PRN PRN Reason: Dizziness Methylprednisolone Sodium Succinate (Solu-Medrol) 60 mg IVPUSH Q6H [facility] Last Admin: 09/08/17 03:53 Dose: 60 mg Nicotine (Habitrol) 21 mg TRDERM DAILY [facility] Last Admin: 09/08/17 08:53 Dose: 21 mg Pantoprazole Sodium (Protonix Iv) 40 mg IVPUSH Q12H [facility] Last Admin: 09/08/17 01:12 Dose: 40 mg Sodium Chloride (Saline Flush) 2.5 ml FLUSH ASDIRECTED [facility] Thyroid ([place] Thyroid) 30 mg PO DAILY [facility] Last Admin: 09/08/17 08:52 Dose: Not Given Discontinued Medications Albuterol/Ipratropium (Duoneb 3.0-0.5 Mg/3 Ml) 3 ml NEB ONETIME ONE Stop: 09/05/17 22:34 Last Admin: 09/05/17 22:52 Dose: 3 ml Albuterol/Ipratropium (Duoneb 3.0-0.5 Mg/3 Ml) 3 ml NEB Q4HRRT [facility] Last Admin: 09/06/17 05:56 Dose: 3 ml Albuterol/Ipratropium (Duoneb 3.0-0.5 Mg/3 Ml) 3 ml NEB Q6HRRT [facility] Last Admin: 09/07/17 12:26 Dose: 3 ml Sodium Chloride (Normal Saline) 1,000 mls @ 30 mls/hr IV STAT ONE Stop: 09/07/17 07:51 Last Admin: 09/05/17 22:52 Dose: 30 mls/hr Sodium Chloride (Sodium Chloride 0.45%) 1,000 mls @ 100 mls/hr IV ASDIRECTED [facility] Last Infusion: 09/07/17 00:45 Dose: 100 mls/hr Levofloxacin/Dextrose 750 mg/ (Premix) 150 mls @ 100 mls/hr IV ONETIME ONE Stop: 09/06/17 18:21 Last Admin: 09/06/17 17:09 Dose: 100 mls/hr Sodium Chloride (Normal Saline) 1,000 mls @ 999 mls/hr IV ASDIRECTED [facility] Levofloxacin (Levaquin) 750 mg PO DAILY [facility] Methylprednisolone Sodium Succinate (Solu-Medrol) 125 mg IVPUSH ONETIME ONE Stop: 09/05/17 22:34 Last Admin: 09/05/17 22:51 Dose: 125 mg Thyroid ([place] Thyroid) 30 mg PO DAILY [facility] Last Admin: 09/06/17 13:58 Dose: Not Given - Exam General: Alert, Oriented Lungs: Normal Respiratory Effort Cardiovascular: Regular Rate GI/Abdominal Exam: Soft, No Distention (Tender around the umbilicus to deep palpation. ) - Problem List & Annotations (1) Abdominal pain SNOMED Code(s): 79262180 Code(s): R10.9 - UNSPECIFIED ABDOMINAL PAIN Status: Acute Current Visit: Yes - Problem List Review Problem List Initiated/Reviewed/Updated: Yes - My Orders Last 24 Hours: Active Orders 24 hr Category Date Time Status Notify Provider Consults [RC] ASDIRECTED Care 09/07/17 10:29 Active Oxygen Therapy [RC] PRN Care 09/07/17 14:42 Active VTE/DVT Education [RC] PER UNIT ROUTINE Care 09/07/17 14:42 Active Vital Signs [RC] Q4H Care 09/07/17 14:42 Active Consult to Physician [CONS] Routine Cons 09/07/17 10:28 Active Nothing Per Oral Diet [DIET] Diet 09/07/17 Lunch Active BASIC METABOLIC PANEL,BMP [CHEM] DAILY Lab 09/09/17 05:00 Ordered CBC WITH AUTO DIFF [HEME] DAILY Lab 09/09/17 05:00 Ordered Albuterol/Ipratropium [DuoNeb 3.0-0.5 MG/3 ML] Med 09/07/17 15:00 Active 3 ml NEB Q4HRRT Fluticasone Propionate [Flonase] Med 09/07/17 09:00 Active 0 gm NASBOTH DAILY Levofloxacin/Dextrose 5%-Water [Levaquin in D5W 750 MG/ Med 09/08/17 17:00 Active 150 ML] 750 mg Premix Bag 1 bag IV Q24H Resuscitation Status Routine Resus Stat 09/07/17 14:43 Ordered Medication Orders Acetaminophen (Tylenol) 650 mg PO Q6H PRN PRN Reason: Pain Last Admin: 09/06/17 04:29 Dose: 650 mg Albuterol/Ipratropium (Duoneb 3.0-0.5 Mg/3 Ml) 3 ml NEB Q4HRRT [facility] Last Admin: 09/08/17 06:13 Dose: 3 ml Admin: 09/08/17 01:17 Dose: 3 ml Admin: 09/07/17 21:30 Dose: 3 ml Admin: 09/07/17 17:58 Dose: 3 ml Admin: 09/07/17 17:58 Dose: Fluticasone Propionate (Flonase) 0 gm NASBOTH DAILY [facility] Last Admin: 09/08/17 08:53 Dose: 2 spray Admin: 09/07/17 08:16 Dose: 2 spray Metronidazole 500 mg/ Premix 100 mls @ 100 mls/hr IV Q6H [facility] Last Admin: 09/08/17 07:52 Dose: 100 mls/hr Infusion: 09/08/17 02:19 Dose: 100 mls/hr Admin: 09/08/17 01:19 Dose: 100 mls/hr Infusion: 09/07/17 21:32 Dose: 100 mls/hr Admin: 09/07/17 20:32 Dose: 100 mls/hr Infusion: 09/07/17 15:07 Dose: 100 mls/hr Admin: 09/07/17 14:07 Dose: 100 mls/hr Infusion: 09/07/17 09:17 Dose: 100 mls/hr Admin: 09/07/17 08:17 Dose: 100 mls/hr Infusion: 09/07/17 03:03 Dose: 100 mls/hr Admin: 09/07/17 02:03 Dose: 100 mls/hr Infusion: 09/06/17 21:40 Dose: 100 mls/hr Admin: 09/06/17 20:35 Dose: 100 mls/hr Infusion: 09/06/17 14:50 Dose: 100 mls/hr Admin: 09/06/17 13:50 Dose: 100 mls/hr Levofloxacin/Dextrose 750 mg/ (Premix) 150 mls @ 100 mls/hr IV Q24H [facility] Meclizine HCl (Antivert) 25 mg PO TID PRN PRN Reason: Dizziness Methylprednisolone Sodium Succinate (Solu-Medrol) 60 mg IVPUSH Q6H [facility] Last Admin: 09/08/17 03:53 Dose: 60 mg Admin: 09/07/17 22:33 Dose: 60 mg Admin: 09/07/17 15:58 Dose: 60 mg Admin: 09/07/17 09:24 Dose: 60 mg Admin: 09/07/17 04:23 Dose: 60 mg Admin: 09/06/17 21:41 Dose: 60 mg Admin: 09/06/17 16:24 Dose: 60 mg Admin: 09/06/17 10:00 Dose: 60 mg Admin: 09/06/17 04:27 Dose: 60 mg Nicotine (Habitrol) 21 mg TRDERM DAILY [facility] Last Admin: 09/08/17 08:53 Dose: 21 mg Admin: 09/07/17 08:17 Dose: 21 mg Admin: 09/06/17 17:09 Dose: 21 mg Pantoprazole Sodium (Protonix Iv) 40 mg IVPUSH Q12H [facility] Last Admin: 09/08/17 01:12 Dose: 40 mg Admin: 09/07/17 14:07 Dose: 40 mg Admin: 09/07/17 00:47 Dose: 40 mg Admin: 09/06/17 13:50 Dose: 40 mg Sodium Chloride (Saline Flush) 2.5 ml FLUSH ASDIRECTED [facility] Thyroid ([place] Thyroid) 30 mg PO DAILY [facility] Last Admin: 09/08/17 08:52 Dose: Admin: 09/07/17 08:17 Dose: 30 mg Admin: 09/06/17 13:50 Dose: 30 mg - Plan Plan (Free Text/Narrative):: This morning the patient's abdominal pain is in a completely different location than it was yesterday. Subjectively she feels better overall. She has not passed flatus and feels bloated. Her CT yesterday did not suggest an ileus. It appeared normal. Continue to get a HIDA scan today to assess for cholecystitis. Given the steroids she is on and increasing oxygen requirements I would treat her conservatively with antibiotics if it comes back positive. If her abdominal pain persists or get worse she may need to be transferred for consideration of a PTC tube placement versus surgical management. If the HIDA scan comes back normal I would slowly advance her diet and start a bowel regiment.
--- NOTE | 2017-09-08 11:03 | NM ---
EXAMINATION: Nuclear medicine hepatobiliary study (HIDA) HISTORY: Rule out cholecystitis. PROCEDURE: Following intravenous administration of 4.1 mCi of technetium 99m Choletec, dynamic images were obt ained up to one-hour post injection. FINDINGS: The initial dynamic images demonstrates clearance of the tracer from the blood pool with the prompt t racer uptake by the liver. By 20 minutes tracer activity is noted in the gallbladder. Ejection fracti on was not calculated due to likely cholelithiasis on the previous ultrasound. No excretion into the small bowel was noted by 1 h. IMPRESSION: 1. Patent cystic duct. Normal liver function. No evidence of acute cholecystitis.
--- NOTE | 2017-09-08 11:32 | PCM.SN ---
- Free Text/Narrative Note: Patient's HIDA scan was normal. Advance diet as tolerated. Will sign off at this time. Call with questions or concerns.
[2017-09-08] MEDS: methylPREDNISolone Sodium Succinate 40 MG/1 ML SDV IVPUSH SCH (17:03)
[2017-09-08] MEDS: Levofloxacin/Dextrose 5%-Water 750 MG in Premix Bag 1 BAG IV SCH (17:03)
[2017-09-08] MEDS ORDERED: methylPREDNISolone Sodium Succinate 125 MG/2 ML SDV IVPUSH SCH (18:00)
[2017-09-09] MEDS: Pantoprazole 40 MG Vial IVPUSH SCH ×2 (01:51→12:39)
[2017-09-09] MEDS: Albuterol/Ipratropium 3.0-0.5 MG/3 ML Neb Soln NEB SCH ×6 (01:55→21:40)
[2017-09-09] MEDS: metroNIDAZOLE/Normal Saline 500 MG in Premix Bag 1 BAG IV SCH ×4 (01:56→20:07)
[2017-09-09] MEDS: methylPREDNISolone Sodium Succinate 40 MG/1 ML SDV IVPUSH SCH (06:06)
[2017-09-09] MEDS: Thyroid 60 MG Tab PO SCH (08:00)
[2017-09-09] MEDS: Nicotine 21 MG/24 Hr Patch TRDERM SCH (08:00)
[2017-09-09] MEDS: Insulin Aspart 100 Units/ML 3 ML Pen SUBCUT SCH ×3 (08:01→16:44)
[2017-09-09] MEDS: Fluticasone Propionate Nasal Spray 16 GM Bottle NASBOTH SCH (08:06)
[2017-09-09] MEDS ORDERED: Sodium Chloride 0.9% 500 ML IV ONE (08:30)
--- NOTE | 2017-09-09 08:39 | PCM.PN ---
- General Info Date of Service: 09/09/17 Admission Dx/Problem (Free Text): Admission Diagnosis/Problem Admission Diagnosis/Problem COPD, Moderate chronic obstructive pulmonary disease, abdominal pain Subjective Update: Feeling better today. Has some anxiety which worsens SOB intermittently. Feeling dehydrated today. Continues to be slightly agitated, but this is much improved from yesterday and decreasing steroids. No chest pain. Functional Status: Reports: Pain Controlled, Tolerating Diet, Ambulating, Urinating - Review of Systems Pulmonary: Reports: Shortness of Breath (intermittently, noted with ambulation and with anxiety). Denies: Cough, Sputum Cardiovascular: Reports: No Symptoms. Denies: Chest Pain, Edema Gastrointestinal: Reports: No Symptoms. Denies: Abdominal Pain, Nausea, Vomiting Genitourinary: Reports: No Symptoms. Denies: Dysuria, Frequency, Burning Neurological: Reports: No Symptoms. Denies: Confusion Psychiatric: Reports: No Symptoms. Denies: Confusion - Patient Data Vitals - Most Recent: Last Vital Signs Temp 97.6 F 09/09/17 04:00 Pulse 99 09/09/17 04:00 Resp 20 09/09/17 04:00 BP 135/74 09/09/17 04:00 Pulse Ox 91 L 09/09/17 04:25 Weight - Most Recent: 60.373 kg I&O - Last 24 Hours: Intake & Output 09/08/17 09/09/17 09/09/17 22:59 06:59 14:59 Intake Total 150 600 100 Output Total 1150 Balance 150 -550 100 Lab Results Last 24 Hours: Laboratory Results - last 24 hr 09/09/17 09/09/17 09/09/17 Range/Units 04:49 04:49 07:59 WBC 16.14 H (4.0-11.0) K/uL RBC 3.88 L (4.30-5.90) M/uL Hgb 10.9 L (12.0-16.0) g/dL Hct 33.8 L (36.0-46.0) % MCV 87.1 (80.0-98.0) fL MCH 28.1 (27.0-32.0) pg MCHC 32.2 (31.0-37.0) g/dL RDW Std Deviation 47.5 (28.0-62.0) fl RDW Coeff of Doris 15 (11.0-15.0) % Plt Count 382 (150-400) K/uL MPV 9.20 (7.40-12.00) fL Add Manual Diff YES Neutrophils % (Manual) 88 H (48.0-80.0) % Band Neutrophils % 4 % Lymphocytes % (Manual) 5 L (16.0-40.0) % Monocytes % (Manual) 3 (0.0-15.0) % Nucleated RBC % 0.0 /100WBC Absolute Seg Neuts 14.2 H (1.4-5.7) Band Neutrophils # 0.6 Lymphocytes # (Manual) 0.8 (0.6-2.4) Monocytes # (Manual) 0.5 (0.0-0.8) Nucleated RBCs # 0 K/uL Sodium 136 (136-146) mmol/L Potassium 3.6 (3.5-5.1) mmol/L Chloride 101 (98-110) mmol/L Carbon Dioxide 20 L (21-31) mmol/L BUN 29 H (6.0-23.0) mg/dL Creatinine 1.1 (0.6-1.5) mg/dL Est Cr Clr Drug Dosing 44.66 mL/min Estimated GFR (MDRD) 49.5 ml/min Glucose 285 H (60-110) mg/dL POC Glucose 140 H (60-110) mg/dL Calcium 8.2 L (8.8-10.8) mg/dL Med Orders - Current: Current Medications Acetaminophen (Tylenol) 650 mg PO Q6H PRN PRN Reason: Pain Last Admin: 09/06/17 04:29 Dose: 650 mg Albuterol/Ipratropium (Duoneb 3.0-0.5 Mg/3 Ml) 3 ml NEB Q4HRRT [facility] Last Admin: 09/09/17 06:27 Dose: 3 ml Fluticasone Propionate (Flonase) 0 gm NASBOTH DAILY [facility] Last Admin: 09/09/17 08:06 Dose: 2 spray Metronidazole 500 mg/ Premix 100 mls @ 100 mls/hr IV Q6H [facility] Last Admin: 09/09/17 07:59 Dose: 100 mls/hr Levofloxacin/Dextrose 750 mg/ (Premix) 150 mls @ 100 mls/hr IV Q24H [facility] Last Admin: 09/08/17 17:03 Dose: 100 mls/hr Sodium Chloride (Normal Saline) 500 mls @ 125 mls/hr IV ONETIME ONE Stop: 09/09/17 12:29 Insulin Aspart (Novolog) 0 unit SUBCUT TIDAC [facility] PRN Reason: Protocol Last Admin: 09/09/17 08:01 Dose: Not Given Meclizine HCl (Antivert) 25 mg PO TID PRN PRN Reason: Dizziness Nicotine (Habitrol) 21 mg TRDERM DAILY [facility] Last Admin: 09/09/17 08:00 Dose: 21 mg Pantoprazole Sodium (Protonix Iv) 40 mg IVPUSH Q12H [facility] Last Admin: 09/09/17 01:51 Dose: 40 mg Prednisone (Prednisone) 40 mg PO WITHBREAKFAST [facility] Sodium Chloride (Saline Flush) 2.5 ml FLUSH ASDIRECTED [facility] Thyroid ([place] Thyroid) 30 mg PO DAILY [facility] Last Admin: 09/09/17 08:00 Dose: 30 mg Discontinued Medications Albuterol/Ipratropium (Duoneb 3.0-0.5 Mg/3 Ml) 3 ml NEB ONETIME ONE Stop: 09/05/17 22:34 Last Admin: 09/05/17 22:52 Dose: 3 ml Albuterol/Ipratropium (Duoneb 3.0-0.5 Mg/3 Ml) 3 ml NEB Q4HRRT [facility] Last Admin: 09/06/17 05:56 Dose: 3 ml Albuterol/Ipratropium (Duoneb 3.0-0.5 Mg/3 Ml) 3 ml NEB Q6HRRT [facility] Last Admin: 09/07/17 12:26 Dose: 3 ml Sodium Chloride (Normal Saline) 1,000 mls @ 30 mls/hr IV STAT ONE Stop: 09/07/17 07:51 Last Admin: 09/05/17 22:52 Dose: 30 mls/hr Sodium Chloride (Sodium Chloride 0.45%) 1,000 mls @ 100 mls/hr IV ASDIRECTED [facility] Last Infusion: 09/07/17 00:45 Dose: 100 mls/hr Levofloxacin/Dextrose 750 mg/ (Premix) 150 mls @ 100 mls/hr IV ONETIME ONE Stop: 09/06/17 18:21 Last Admin: 09/06/17 17:09 Dose: 100 mls/hr Sodium Chloride (Normal Saline) 1,000 mls @ 999 mls/hr IV ASDIRECTED [facility] Levofloxacin (Levaquin) 750 mg PO DAILY [facility] Methylprednisolone Sodium Succinate (Solu-Medrol) 125 mg IVPUSH ONETIME ONE Stop: 09/05/17 22:34 Last Admin: 09/05/17 22:51 Dose: 125 mg Methylprednisolone Sodium Succinate (Solu-Medrol) 60 mg IVPUSH Q6H [facility] Last Admin: 09/08/17 03:53 Dose: 60 mg Methylprednisolone Sodium Succinate (Solu-Medrol) 60 mg IVPUSH Q12H [facility] Methylprednisolone Sodium Succinate (Solu-Medrol) 40 mg IVPUSH Q12H [facility] Last Admin: 09/09/17 06:06 Dose: 40 mg Thyroid ([place] Thyroid) 30 mg PO DAILY [facility] Last Admin: 09/06/17 13:58 Dose: Not Given - Exam General: Alert, Oriented, Cooperative Lungs: Clear to Auscultation, Normal Respiratory Effort. No: Wheezing Cardiovascular: Regular Rate, Regular Rhythm GI/Abdominal Exam: Normal Bowel Sounds, Soft, Non-Tender, No Organomegaly, No Distention, No Abnormal Bruit, No Mass, Pelvis Stable Extremities: Normal Inspection, Normal Range of Motion, Non-Tender, No Pedal Edema, Normal Capillary Refill Neurological: No New Focal Deficit Psy/Mental Status: Alert, Normal Affect, Normal Mood - Problem List & Annotations (1) Hypoxia SNOMED Code(s): 403351571 Code(s): R09.02 - HYPOXEMIA Status: Acute Current Visit: Yes (2) COPD exacerbation SNOMED Code(s): 142422588729543 Code(s): J44.1 - CHRONIC OBSTRUCTIVE PULMONARY DISEASE W (ACUTE) EXACERBATION Status: Acute Current Visit: Yes (3) Cholecystitis SNOMED Code(s): 65623079 Code(s): K81.9 - CHOLECYSTITIS, UNSPECIFIED Status: Acute Current Visit: Yes (4) Hypothyroid SNOMED Code(s): 84594568 Code(s): E03.9 - HYPOTHYROIDISM, UNSPECIFIED Status: Chronic Current Visit: No (5) Polymyositis SNOMED Code(s): 51029329 Code(s): M33.20 - POLYMYOSITIS, ORGAN INVOLVEMENT UNSPECIFIED Status: Chronic Current Visit: No (6) Steroid dependent SNOMED Code(s): 95831614 Code(s): QMY4978 - Status: Chronic Current Visit: Yes (7) COPD (chronic obstructive pulmonary disease) SNOMED Code(s): 91884584 Code(s): J44.9 - CHRONIC OBSTRUCTIVE PULMONARY DISEASE, UNSPECIFIED Status : Chronic Current Visit: No Qualifiers: COPD type: chronic bronchitis Chronic bronchitis type: unspecified Qualified Code(s): J42 - Unspecified chronic bronchitis - Problem List Review Problem List Initiated/Reviewed/Updated: No - My Orders Last 24 Hours: My Active Orders 09/08/17 09:58 Consumer Lending Manager Discontinue [Cardiac Monitoring Discontinue] [RC] Click to Edit 09/08/17 17:00 Levofloxacin/Dextrose 5%-Water [Levaquin in D5W 750 MG/150 ML] 750 mg Premix Bag 1 bag IV Q24H 09/08/17 Dinner Low Fat Diet [DIET] 09/09/17 07:41 Blood Glucose Check, Bedside [RC] TIDAC 09/09/17 07:45 Insulin Aspart [NovoLOG] See Protocol SUBCUT TIDAC 09/09/17 08:30 Sodium Chloride 0.9% [Normal Saline] 500 ml IV ONETIME 09/10/17 08:00 predniSONE 40 mg PO WITHBREAKFAST - Plan Plan:: This 67 year old female admitted with COPD exacerbation and RUQ abdominal pain 1. COPD exacerbation: Continues to improve, very anxious about going home today and with oxygen. Will obtain room air challenge today and plan for discharge in am. Decrease in Solu-medrol significantly helped with mood. Will stop IV after this mornings dose and change to Prednisone 40 mg daily. Continue Duonebs, will increase to Q4h. Continue Advair. Continue Levaquin for suspected community acquired pneumonia. Recently stopped smoking July 14, continued to encouraged smoking cessation. Keep sats 88% or higher. Likely will need oxygen for home use. Exacerbation is improved, but likely not able to be off oxygen before appropriate for discharge home. Will recommended her to see her pulmonolgist, Dr Rabago in [place] and recommend pulmonary rehab. 2. Cholecystitis: Abdominal pain is better. Abdominal CT, which was negative as well as HIDA scan. Continue Levaquin and Flagyl for now. 3. Polymyositis: in remission. 4. Hypothyroidism: Stable. Continue [place] Thyroid VTE prophylaxis: Heparin Q12h Dispo: 1-2 days, likely in am.
[2017-09-09] MEDS: Levofloxacin/Dextrose 5%-Water 750 MG in Premix Bag 1 BAG IV SCH (16:16)
[2017-09-09] MEDS: Tiotropium Inhaler 18 MCG Inhalation Powder Cap Kit of 5 INH SCH ×2 (21:42→21:46)
[2017-09-10] MEDS: Albuterol/Ipratropium 3.0-0.5 MG/3 ML Neb Soln NEB SCH ×6 (02:03→21:34)
[2017-09-10] MEDS: Pantoprazole 40 MG Vial IVPUSH SCH ×2 (02:05→13:40)
[2017-09-10] MEDS: metroNIDAZOLE/Normal Saline 500 MG in Premix Bag 1 BAG IV SCH ×2 (02:10→08:33)
[2017-09-10 05:37] LABS: CHLORIDE,CL 98 mmol/L (98-110); SODIUM,NA 134 mmol/L (136-146)
[2017-09-10] MEDS ORDERED: Potassium Chloride 20 MEQ Tab.ER PO ONE (07:49)
[2017-09-10] MEDS: Insulin Aspart 100 Units/ML 3 ML Pen SUBCUT SCH ×3 (07:49→18:26)
[2017-09-10] MEDS ORDERED: predniSONE 20 MG Tab PO SCH (08:00)
--- NOTE | 2017-09-10 09:04 | CR ---
EXAMINATION: Two-view chest (PA and Lateral views). HISTORY: Dyspnea. COMPARISON: 09/05/2017. FINDINGS: The trachea is midline. The cardiomediastinal silhouette is within normal limits. There are increased perihilar infiltrates noted bilaterally, increased from the previous chest radiograph. Trace right p leural effusion is not excluded. No pneumothorax. Osseous structures appear unremarkable. IMPRESSION: Increasing perihilar infiltrates. Most likely representing an atypical infectious process versus gin r edema.
[2017-09-10] MEDS: Thyroid 60 MG Tab PO SCH (09:24)
[2017-09-10] MEDS: Nicotine 21 MG/24 Hr Patch TRDERM SCH (09:25)
[2017-09-10] MEDS: Tiotropium Inhaler 18 MCG Inhalation Powder Cap Kit of 5 INH SCH ×2 (09:27→21:33)
[2017-09-10] MEDS: Fluticasone Propionate Nasal Spray 16 GM Bottle NASBOTH SCH (09:27)
--- NOTE | 2017-09-10 09:29 | PCM.PN ---
- General Info Date of Service: 09/10/17 Admission Dx/Problem (Free Text): Admission Diagnosis/Problem Admission Diagnosis/Problem COPD, Moderate chronic obstructive pulmonary disease, abdominal pain Subjective Update: Feeling very tired this morning and having a lot of trouble breathing. Some chest pressure, not particularly pain. ABdominal pain is near baseline at home no worsening with that. She reports not being able to sleep last night either, very anxious. Functional Status: Reports: Tolerating Diet, Urinating, Incentive Spirometry - Review of Systems General: Reports: Weakness, Malaise, Other (appears lethargic). Denies: Fever HEENT: Denies: Headaches, Sinus Congestion, Visual Changes Pulmonary: Reports: Shortness of Breath, Pleuritic Chest Pain, Cough. Denies: Sputum, Hemoptysis Cardiovascular: Reports: Chest Pain (pressure). Denies: Palpitations, Edema, Lightheadedness Gastrointestinal: Reports: Abdominal Pain (near baseline no worsening.), Decreased Appetite. Denies: Nausea, Vomiting Genitourinary: Reports: No Symptoms. Denies: Dysuria, Frequency, Burning Skin: Reports: No Symptoms Psychiatric: Reports: No Symptoms. Denies: Confusion - Patient Data Vitals - Most Recent: Last Vital Signs Temp 99.3 F 09/10/17 07:30 Pulse 90 09/10/17 07:30 Resp 20 09/10/17 07:30 BP 129/44 L 09/10/17 07:30 Pulse Ox 93 L 09/10/17 07:30 Weight - Most Recent: 60.373 kg I&O - Last 24 Hours: Intake & Output 09/09/17 09/10/17 09/10/17 22:59 06:59 14:59 Intake Total 570 350 Output Total 1100 800 Balance -530 -450 Lab Results Last 24 Hours: Laboratory Results - last 24 hr 09/09/17 09/09/17 09/10/17 Range/Units 11:27 16:35 04:47 WBC 16.42 H (4.0-11.0) K/uL RBC 4.00 L (4.30-5.90) M/uL Hgb 11.2 L (12.0-16.0) g/dL Hct 34.3 L (36.0-46.0) % MCV 85.8 (80.0-98.0) fL MCH 28.0 (27.0-32.0) pg MCHC 32.7 (31.0-37.0) g/dL RDW Std Deviation 46.0 (28.0-62.0) fl RDW Coeff of Doris 15 (11.0-15.0) % Plt Count 370 (150-400) K/uL MPV 9.20 (7.40-12.00) fL Add Manual Diff YES Neutrophils % (Manual) 85 H (48.0-80.0) % Band Neutrophils % 1 % Lymphocytes % (Manual) 10 L (16.0-40.0) % Monocytes % (Manual) 4 (0.0-15.0) % Nucleated RBC % 0.0 /100WBC Absolute Seg Neuts 14.0 H (1.4-5.7) Band Neutrophils # 0.2 Lymphocytes # (Manual) 1.6 (0.6-2.4) Monocytes # (Manual) 0.7 (0.0-0.8) Nucleated RBCs # 0 K/uL Sodium (136-146) mmol/L Potassium (3.5-5.1) mmol/L Chloride (98-110) mmol/L Carbon Dioxide (21-31) mmol/L BUN (6.0-23.0) mg/dL Creatinine (0.6-1.5) mg/dL Est Cr Clr Drug Dosing mL/min Estimated GFR (MDRD) ml/min Glucose (60-110) mg/dL POC Glucose 195 H 203 H (60-110) mg/dL Calcium (8.8-10.8) mg/dL 09/10/17 Range/Units 04:47 WBC (4.0-11.0) K/uL RBC (4.30-5.90) M/uL Hgb (12.0-16.0) g/dL Hct (36.0-46.0) % MCV (80.0-98.0) fL MCH (27.0-32.0) pg MCHC (31.0-37.0) g/dL RDW Std Deviation (28.0-62.0) fl RDW Coeff of Doris (11.0-15.0) % Plt Count (150-400) K/uL MPV (7.40-12.00) fL Add Manual Diff Neutrophils % (Manual) (48.0-80.0) % Band Neutrophils % % Lymphocytes % (Manual) (16.0-40.0) % Monocytes % (Manual) (0.0-15.0) % Nucleated RBC % /100WBC Absolute Seg Neuts (1.4-5.7) Band Neutrophils # Lymphocytes # (Manual) (0.6-2.4) Monocytes # (Manual) (0.0-0.8) Nucleated RBCs # K/uL Sodium 134 L (136-146) mmol/L Potassium 3.4 L (3.5-5.1) mmol/L Chloride 98 (98-110) mmol/L Carbon Dioxide 26 (21-31) mmol/L BUN 15 (6.0-23.0) mg/dL Creatinine 0.8 (0.6-1.5) mg/dL Est Cr Clr Drug Dosing 61.40 mL/min Estimated GFR (MDRD) > 60.0 ml/min Glucose 98 (60-110) mg/dL POC Glucose (60-110) mg/dL Calcium 8.1 L (8.8-10.8) mg/dL Med Orders - Current: Current Medications Acetaminophen (Tylenol) 650 mg PO Q6H PRN PRN Reason: Pain Last Admin: 09/06/17 04:29 Dose: 650 mg Albuterol/Ipratropium (Duoneb 3.0-0.5 Mg/3 Ml) 3 ml NEB Q4HRRT [facility] Last Admin: 09/10/17 06:15 Dose: 3 ml Fluticasone Propionate (Flonase) 0 gm NASBOTH DAILY [facility] Last Admin: 09/10/17 09:27 Dose: 1 spray Levofloxacin/Dextrose 750 mg/ (Premix) 150 mls @ 100 mls/hr IV Q24H [facility] Last Admin: 09/09/17 16:16 Dose: 100 mls/hr Piperacillin Sod/Tazobactam (Sod 4.5 gm/ Sodium Chloride) 100 mls @ 100 mls/hr IV Q6H [facility] Insulin Aspart (Novolog) 0 unit SUBCUT TIDAC [facility] PRN Reason: Protocol Last Admin: 09/10/17 07:49 Dose: Not Given Meclizine HCl (Antivert) 25 mg PO TID PRN PRN Reason: Dizziness Nicotine (Habitrol) 21 mg TRDERM DAILY [facility] Last Admin: 09/10/17 09:25 Dose: 21 mg Pantoprazole Sodium (Protonix Iv) 40 mg IVPUSH Q12H [facility] Last Admin: 09/10/17 02:05 Dose: 40 mg Prednisone (Prednisone) 40 mg PO WITHBREAKFAST [facility] Last Admin: 09/10/17 08:25 Dose: 40 mg Sodium Chloride (Saline Flush) 2.5 ml FLUSH ASDIRECTED [facility] Thyroid ([place] Thyroid) 30 mg PO DAILY [facility] Last Admin: 09/10/17 09:24 Dose: 30 mg Tiotropium Regent (Spiriva Handihaler) 1 mcg INH BID [facility] Last Admin: 09/10/17 09:27 Dose: 1 inhalation Discontinued Medications Albuterol/Ipratropium (Duoneb 3.0-0.5 Mg/3 Ml) 3 ml NEB ONETIME ONE Stop: 09/05/17 22:34 Last Admin: 09/05/17 22:52 Dose: 3 ml Albuterol/Ipratropium (Duoneb 3.0-0.5 Mg/3 Ml) 3 ml NEB Q4HRRT [facility] Last Admin: 09/06/17 05:56 Dose: 3 ml Albuterol/Ipratropium (Duoneb 3.0-0.5 Mg/3 Ml) 3 ml NEB Q6HRRT [facility] Last Admin: 09/07/17 12:26 Dose: 3 ml Sodium Chloride (Normal Saline) 1,000 mls @ 30 mls/hr IV STAT ONE Stop: 09/07/17 07:51 Last Admin: 09/05/17 22:52 Dose: 30 mls/hr Metronidazole 500 mg/ Premix 100 mls @ 100 mls/hr IV Q6H [facility] Last Admin: 09/10/17 08:33 Dose: 100 mls/hr Sodium Chloride (Sodium Chloride 0.45%) 1,000 mls @ 100 mls/hr IV ASDIRECTED [facility] Last Infusion: 09/07/17 00:45 Dose: 100 mls/hr Levofloxacin/Dextrose 750 mg/ (Premix) 150 mls @ 100 mls/hr IV ONETIME ONE Stop: 09/06/17 18:21 Last Admin: 09/06/17 17:09 Dose: 100 mls/hr Sodium Chloride (Normal Saline) 1,000 mls @ 999 mls/hr IV ASDIRECTED [facility] Sodium Chloride (Normal Saline) 500 mls @ 125 mls/hr IV ONETIME ONE Stop: 09/09/17 12:29 Last Admin: 09/09/17 09:29 Dose: 125 mls/hr Levofloxacin (Levaquin) 750 mg PO DAILY [facility] Methylprednisolone Sodium Succinate (Solu-Medrol) 125 mg IVPUSH ONETIME ONE Stop: 09/05/17 22:34 Last Admin: 09/05/17 22:51 Dose: 125 mg Methylprednisolone Sodium Succinate (Solu-Medrol) 60 mg IVPUSH Q6H [facility] Last Admin: 09/08/17 03:53 Dose: 60 mg Methylprednisolone Sodium Succinate (Solu-Medrol) 60 mg IVPUSH Q12H [facility] Methylprednisolone Sodium Succinate (Solu-Medrol) 40 mg IVPUSH Q12H [facility] Last Admin: 09/09/17 06:06 Dose: 40 mg Potassium Chloride (Klor-Con M20) 40 meq PO ONETIME ONE Stop: 09/10/17 07:50 Last Admin: 09/10/17 08:24 Dose: 40 meq Thyroid ([place] Thyroid) 30 mg PO DAILY [facility] Last Admin: 09/06/17 13:58 Dose: Not Given - Exam Quality Assessment: Supplemental Oxygen, DVT Prophylaxis General: Alert, Oriented, Cooperative, Moderate Distress, Lethargic HEENT: Pupils Equal, Pupils Reactive, EOMI, Mucous Membr. Moist/[place] Lungs: Decreased Breath Sounds, Rhonchi (to bilateral bases). No: Normal Respiratory Effort (labored, tachypnea), Wheezing Cardiovascular: Tachycardia. No: Murmurs GI/Abdominal Exam: Normal Bowel Sounds, Soft, No Organomegaly, No Distention, No Abnormal Bruit, No Mass, Pelvis Stable, Tender (scant tenderness to abdomen) Extremities: Normal Inspection, Normal Range of Motion, Non-Tender, No Pedal Edema, Normal Capillary Refill Neurological: Other (lethargic ) Psy/Mental Status: Alert - Problem List & Annotations (1) Respiratory distress SNOMED Code(s): 620990848 Code(s): R06.03 - ACUTE RESPIRATORY DISTRESS Status: Acute Current Visit : Yes (2) Hospital acquired PNA SNOMED Code(s): 541503547 Code(s): J18.9 - PNEUMONIA, UNSPECIFIED ORGANISM Status: Acute Current Visit: Yes (3) Hyperventilation SNOMED Code(s): 62288582 Code(s): R06.4 - HYPERVENTILATION Status: Acute Current Visit: Yes (4) Acute respiratory alkalosis SNOMED Code(s): 39904022 Code(s): E87.3 - ALKALOSIS Status: Acute Current Visit: Yes (5) Hypoxia SNOMED Code(s): 835836566 Code(s): R09.02 - HYPOXEMIA Status: Acute Current Visit: Yes (6) COPD exacerbation SNOMED Code(s): 713854514355365 Code(s): J44.1 - CHRONIC OBSTRUCTIVE PULMONARY DISEASE W (ACUTE) EXACERBATION Status: Acute Current Visit: Yes (7) Cholecystitis SNOMED Code(s): 64526781 Code(s): K81.9 - CHOLECYSTITIS, UNSPECIFIED Status: Acute Current Visit: Yes (8) Hypothyroid SNOMED Code(s): 80755601 Code(s): E03.9 - HYPOTHYROIDISM, UNSPECIFIED Status: Chronic Current Visit: No (9) Polymyositis SNOMED Code(s): 41710471 Code(s): M33.20 - POLYMYOSITIS, ORGAN INVOLVEMENT UNSPECIFIED Status: Chronic Current Visit: No (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 SNOMED Code(s): 55882355 Code(s): TXV2102 - Status: Chronic Current Visit: Yes (11) COPD (chronic obstructive pulmonary disease) SNOMED Code(s): 35665206 Code(s): J44.9 - CHRONIC OBSTRUCTIVE PULMONARY DISEASE, UNSPECIFIED Status : Chronic Current Visit: No Qualifiers: COPD type: chronic bronchitis Chronic bronchitis type: unspecified Qualified Code(s): J42 - Unspecified chronic bronchitis - Problem List Review Problem List Initiated/Reviewed/Updated: Yes - My Orders Last 24 Hours: My Active Orders 09/09/17 08:35 Communication Order [RC] ASDIRECTED 09/09/17 08:48 Communication Order [RC] PRN 09/09/17 21:00 Tiotropium [Spiriva HandiHaler] 1 mcg INH BID 09/10/17 08:00 predniSONE 40 mg PO WITHBREAKFAST 09/10/17 09:13 EKG 12 Lead [EKG Documentation Completion] [RC] STAT 09/10/17 09:30 Piperacillin/Tazobactam [Piperacil-Tazobact] 4.5 gm Sodium Chloride 0.9% [ Normal Saline] 100 ml IV Q6H Vancomycin Pharmacy to Dose [Pharmacy to Dose - Vancomycin] 1 dose .XX ASDIRECTED - Plan Plan:: This 67 year old female admitted with COPD exacerbation and RUQ abdominal pain 1. HCAP: Had event of tachycardia last evening with increased need of oxygen. Placed on SM at 5 L then weaned to 3-4 L NC overnight. Continued to feel very SOB this morning and appeared lethargic. CXR obtained which revealed worsening perihilar infiltrates representing atypical infection vs minor edema. CHF unlikely due to negative I/O status during stay no orthopnea of JVD noted. EKG obtained due to tachycardia, ST no acute ST segment changes. low grade fever. Lactate obtained, 2.0. Troponin pending, ABG pending. Will transfer to ICU at this time due to lethargy,respiratory distress and pneumonia with increased oxygen needs. I spoke with E ICU physician regarding pmh and current condition. I have added Zosyn, Vancomycin to cover HCAP. I will also start NS 100 ml now. 11:00 ABG returns showing respiratory alkalosis and low CO2. Likely due to hyperventilation and anxiety. Discussed with Dr. Sanders who agrees with plan laid out above. also to order Morphine low dose for some air hunger/dyspnea. I also spoke with Komal's son Edwin and updated him on his mother's status. Continue to monitor closely. Continue to monitor tachycardia and HTN, may be due to anxiety. 2. Polymyositis: in remission. 3. Hypothyroidism: Stable. Continue [place] Thyroid VTE prophylaxis: Heparin Q12h Dispo: 2-3 days pending improvement.
[2017-09-10] MEDS: Sodium Chloride 0.9% 1,000 ML IV SCH (09:53)
[2017-09-10] MEDS: Piperacillin/Tazobactam 4.5 GM in Sodium Chloride 0.9% 100 ML IV SCH ×3 (10:31→21:41)
[2017-09-10] MEDS: Morphine 2 MG/ML Syringe IVPUSH PRN ×2 (11:12→16:38)
[2017-09-10] MEDS: Sodium Chloride 0.65% Nasal Spray 45 ML Bottle NAS PRN ×2 (11:53→19:32)
[2017-09-10] MEDS: methylPREDNISolone Sodium Succinate 40 MG/1 ML SDV IVPUSH SCH (16:32)
[2017-09-10] MEDS: Levofloxacin/Dextrose 5%-Water 750 MG in Premix Bag 1 BAG IV SCH (17:58)
[2017-09-11] MEDS: methylPREDNISolone Sodium Succinate 40 MG/1 ML SDV IVPUSH SCH ×3 (00:11→16:24)
[2017-09-11] MEDS: Albuterol/Ipratropium 3.0-0.5 MG/3 ML Neb Soln NEB SCH ×6 (01:00→21:18)
[2017-09-11] MEDS: Pantoprazole 40 MG Vial IVPUSH SCH ×2 (01:00→13:00)
[2017-09-11] MEDS: Sodium Chloride 0.9% 1,000 ML IV SCH ×2 (02:41→14:35)
[2017-09-11] MEDS: Piperacillin/Tazobactam 4.5 GM in Sodium Chloride 0.9% 100 ML IV SCH ×5 (02:47→21:35)
[2017-09-11 05:30] LABS: CHLORIDE,CL 104 mmol/L (98-110); SODIUM,NA 137 mmol/L (136-146)
[2017-09-11] MEDS: Insulin Aspart 100 Units/ML 3 ML Pen SUBCUT SCH ×3 (06:51→16:18)
--- NOTE | 2017-09-11 07:41 | PCM.PN ---
- General Info Date of Service: 09/11/17 Admission Dx/Problem (Free Text): Admission Diagnosis/Problem Admission Diagnosis/Problem COPD, Moderate chronic obstructive pulmonary disease, abdominal pain Subjective Update: Feeling somewhat improved today, less SOB at rest and slept well overnight. Sitting up in chair eating breakfast, appears SOB with speech at times. Denies chest pain. Notable desaturation with activity to mid 80s. Functional Status: Reports: Pain Controlled, Tolerating Diet, Urinating - Review of Systems General: Reports: Weakness, Fatigue Pulmonary: Reports: Shortness of Breath, Pleuritic Chest Pain, Cough, Sputum ( clear). Denies: Hemoptysis Cardiovascular: Reports: No Symptoms. Denies: Chest Pain, Palpitations, Edema Gastrointestinal: Reports: No Symptoms. Denies: Abdominal Pain, Nausea, Vomiting Genitourinary: Reports: No Symptoms. Denies: Dysuria, Frequency, Burning Neurological: Reports: No Symptoms. Denies: Confusion Psychiatric: Reports: No Symptoms. Denies: Confusion - Patient Data Vitals - Most Recent: Last Vital Signs Temp 98.8 F 09/11/17 04:00 Pulse 90 09/10/17 07:30 Resp 15 09/11/17 07:00 BP 150/81 H 09/11/17 07:00 Pulse Ox 92 L 09/11/17 07:00 Weight - Most Recent: 65 kg I&O - Last 24 Hours: Intake & Output 09/10/17 09/11/17 09/11/17 22:59 06:59 14:59 Intake Total 1163 1650 Output Total 375 800 Balance 788 850 Lab Results Last 24 Hours: Laboratory Results - last 24 hr 09/09/17 09/10/17 09/10/17 Range/Units 16:35 06:16 09:39 WBC (4.0-11.0) K/uL RBC (4.30-5.90) M/uL Hgb (12.0-16.0) g/dL Hct (36.0-46.0) % MCV (80.0-98.0) fL MCH (27.0-32.0) pg MCHC (31.0-37.0) g/dL RDW Std Deviation (28.0-62.0) fl RDW Coeff of Doris (11.0-15.0) % Plt Count (150-400) K/uL MPV (7.40-12.00) fL Add Manual Diff Neutrophils % (Manual) (48.0-80.0) % Band Neutrophils % % Lymphocytes % (Manual) (16.0-40.0) % Monocytes % (Manual) (0.0-15.0) % Nucleated RBC % /100WBC Absolute Seg Neuts (1.4-5.7) Band Neutrophils # Lymphocytes # (Manual) (0.6-2.4) Monocytes # (Manual) (0.0-0.8) Nucleated RBCs # K/uL ESR (0-29) mm/hr ABG pH (7.35-7.45) ABG pCO2 (35-45) mmHG ABG pO2 (75-100) mmHG ABG HCO3 (22-26) mEq/L ABG Total CO2 ABG Base Excess (-2.0-2.0) Lactate 2.0 (0.20-2.00) mmol/L Sodium (136-146) mmol/L Potassium (3.5-5.1) mmol/L Chloride (98-110) mmol/L Carbon Dioxide (21-31) mmol/L BUN (6.0-23.0) mg/dL Creatinine (0.6-1.5) mg/dL Est Cr Clr Drug Dosing mL/min Estimated GFR (MDRD) ml/min Glucose (60-110) mg/dL POC Glucose 203 H 93 (60-110) mg/dL Calcium (8.8-10.8) mg/dL Magnesium (1.5-2.3) mEq/L Troponin I (0.0-0.29) NG/ML B-Natriuretic Peptide (<100) PG/ML 09/10/17 09/10/17 09/10/17 Range/Units 09:39 10:20 12:02 WBC (4.0-11.0) K/uL RBC (4.30-5.90) M/uL Hgb (12.0-16.0) g/dL Hct (36.0-46.0) % MCV (80.0-98.0) fL MCH (27.0-32.0) pg MCHC (31.0-37.0) g/dL RDW Std Deviation (28.0-62.0) fl RDW Coeff of Doris (11.0-15.0) % Plt Count (150-400) K/uL MPV (7.40-12.00) fL Add Manual Diff Neutrophils % (Manual) (48.0-80.0) % Band Neutrophils % % Lymphocytes % (Manual) (16.0-40.0) % Monocytes % (Manual) (0.0-15.0) % Nucleated RBC % /100WBC Absolute Seg Neuts (1.4-5.7) Band Neutrophils # Lymphocytes # (Manual) (0.6-2.4) Monocytes # (Manual) (0.0-0.8) Nucleated RBCs # K/uL ESR (0-29) mm/hr ABG pH 7.532 H (7.35-7.45) ABG pCO2 32 L (35-45) mmHG ABG pO2 56 L (75-100) mmHG ABG HCO3 27 H (22-26) mEq/L ABG Total CO2 24.3 ABG Base Excess 4.6 H (-2.0-2.0) Lactate (0.20-2.00) mmol/L Sodium (136-146) mmol/L Potassium (3.5-5.1) mmol/L Chloride (98-110) mmol/L Carbon Dioxide (21-31) mmol/L BUN (6.0-23.0) mg/dL Creatinine (0.6-1.5) mg/dL Est Cr Clr Drug Dosing mL/min Estimated GFR (MDRD) ml/min Glucose (60-110) mg/dL POC Glucose 135 H (60-110) mg/dL Calcium (8.8-10.8) mg/dL Magnesium (1.5-2.3) mEq/L Troponin I < 0.10 (0.0-0.29) NG/ML B-Natriuretic Peptide (<100) PG/ML 09/10/17 09/10/17 09/10/17 Range/Units 14:24 14:24 17:21 WBC (4.0-11.0) K/uL RBC (4.30-5.90) M/uL Hgb (12.0-16.0) g/dL Hct (36.0-46.0) % MCV (80.0-98.0) fL MCH (27.0-32.0) pg MCHC (31.0-37.0) g/dL RDW Std Deviation (28.0-62.0) fl RDW Coeff of Doris (11.0-15.0) % Plt Count (150-400) K/uL MPV (7.40-12.00) fL Add Manual Diff Neutrophils % (Manual) (48.0-80.0) % Band Neutrophils % % Lymphocytes % (Manual) (16.0-40.0) % Monocytes % (Manual) (0.0-15.0) % Nucleated RBC % /100WBC Absolute Seg Neuts (1.4-5.7) Band Neutrophils # Lymphocytes # (Manual) (0.6-2.4) Monocytes # (Manual) (0.0-0.8) Nucleated RBCs # K/uL ESR 44 H (0-29) mm/hr ABG pH (7.35-7.45) ABG pCO2 (35-45) mmHG ABG pO2 (75-100) mmHG ABG HCO3 (22-26) mEq/L ABG Total CO2 ABG Base Excess (-2.0-2.0) Lactate (0.20-2.00) mmol/L Sodium (136-146) mmol/L Potassium (3.5-5.1) mmol/L Chloride (98-110) mmol/L Carbon Dioxide (21-31) mmol/L BUN (6.0-23.0) mg/dL Creatinine (0.6-1.5) mg/dL Est Cr Clr Drug Dosing mL/min Estimated GFR (MDRD) ml/min Glucose (60-110) mg/dL POC Glucose 200 H (60-110) mg/dL Calcium (8.8-10.8) mg/dL Magnesium (1.5-2.3) mEq/L Troponin I (0.0-0.29) NG/ML B-Natriuretic Peptide < 15 (<100) PG/ML 09/11/17 09/11/17 09/11/17 Range/Units 04:48 04:48 06:48 WBC 8.94 (4.0-11.0) K/uL RBC 3.85 L (4.30-5.90) M/uL Hgb 10.7 L (12.0-16.0) g/dL Hct 33.2 L (36.0-46.0) % MCV 86.2 (80.0-98.0) fL MCH 27.8 (27.0-32.0) pg MCHC 32.2 (31.0-37.0) g/dL RDW Std Deviation 47.0 (28.0-62.0) fl RDW Coeff of Doris 15 (11.0-15.0) % Plt Count 322 (150-400) K/uL MPV 9.20 (7.40-12.00) fL Add Manual Diff YES Neutrophils % (Manual) 87 H (48.0-80.0) % Band Neutrophils % 3 % Lymphocytes % (Manual) 7 L (16.0-40.0) % Monocytes % (Manual) 3 (0.0-15.0) % Nucleated RBC % 0.0 /100WBC Absolute Seg Neuts 7.8 H (1.4-5.7) Band Neutrophils # 0.3 Lymphocytes # (Manual) 0.6 (0.6-2.4) Monocytes # (Manual) 0.3 (0.0-0.8) Nucleated RBCs # 0 K/uL ESR (0-29) mm/hr ABG pH (7.35-7.45) ABG pCO2 (35-45) mmHG ABG pO2 (75-100) mmHG ABG HCO3 (22-26) mEq/L ABG Total CO2 ABG Base Excess (-2.0-2.0) Lactate (0.20-2.00) mmol/L Sodium 137 (136-146) mmol/L Potassium 4.6 (3.5-5.1) mmol/L Chloride 104 (98-110) mmol/L Carbon Dioxide 24 (21-31) mmol/L BUN 17 (6.0-23.0) mg/dL Creatinine 0.8 (0.6-1.5) mg/dL Est Cr Clr Drug Dosing 61.40 mL/min Estimated GFR (MDRD) > 60.0 ml/min Glucose 185 H (60-110) mg/dL POC Glucose 179 H (60-110) mg/dL Calcium 7.8 L (8.8-10.8) mg/dL Magnesium 1.7 (1.5-2.3) mEq/L Troponin I (0.0-0.29) NG/ML B-Natriuretic Peptide (<100) PG/ML Med Orders - Current: Current Medications Acetaminophen (Tylenol) 650 mg PO Q6H PRN PRN Reason: Pain Last Admin: 09/06/17 04:29 Dose: 650 mg Albuterol/Ipratropium (Duoneb 3.0-0.5 Mg/3 Ml) 3 ml NEB Q4HRRT [facility] Last Admin: 09/11/17 05:58 Dose: 3 ml Fluticasone Propionate (Flonase) 0 gm NASBOTH DAILY [facility] Last Admin: 09/10/17 09:27 Dose: 1 spray Levofloxacin/Dextrose 750 mg/ (Premix) 150 mls @ 100 mls/hr IV Q24H [facility] Last Admin: 09/10/17 17:58 Dose: 100 mls/hr Piperacillin Sod/Tazobactam (Sod 4.5 gm/ Sodium Chloride) 100 mls @ 100 mls/hr IV Q6H [facility] Last Admin: 09/11/17 02:47 Dose: 100 mls/hr Sodium Chloride (Normal Saline) 1,000 mls @ 100 mls/hr IV ASDIRECTED [facility] Last Admin: 09/11/17 02:41 Dose: 100 mls/hr Vancomycin HCl 1 gm/ Sodium (Chloride) 250 mls @ 250 mls/hr IV Q12H [facility] Last Admin: 09/11/17 00:10 Dose: 250 mls/hr Insulin Aspart (Novolog) 0 unit SUBCUT TIDAC [facility] PRN Reason: Protocol Last Admin: 09/11/17 06:51 Dose: 1 unit Meclizine HCl (Antivert) 25 mg PO TID PRN PRN Reason: Dizziness Methylprednisolone Sodium Succinate (Solu-Medrol) 40 mg IVPUSH Q8H [facility] Last Admin: 09/11/17 00:11 Dose: 40 mg Morphine Sulfate (Morphine) 2 mg IVPUSH Q4H PRN PRN Reason: air hunger,SOB hyperventilatio Last Admin: 09/10/17 16:38 Dose: 2 mg Nicotine (Habitrol) 21 mg TRDERM DAILY [facility] Last Admin: 09/10/17 09:25 Dose: 21 mg Pantoprazole Sodium (Protonix Iv) 40 mg IVPUSH Q12H [facility] Last Admin: 09/11/17 01:00 Dose: 40 mg Sodium Chloride (Saline Flush) 2.5 ml FLUSH ASDIRECTED [facility] Sodium Chloride ([place] Nasal [place]) 0 ml ЕКАТЕРИНА QID PRN PRN Reason: sinus congestion Last Admin: 09/10/17 19:32 Dose: 2 sprays Thyroid ([place] Thyroid) 30 mg PO DAILY [facility] Last Admin: 09/10/17 09:24 Dose: 30 mg Tiotropium [place] (Spiriva Handihaler) 1 mcg INH BID [facility] Last Admin: 09/10/17 21:33 Dose: 1 inhalation Vancomycin HCl (Pharmacy To Dose - Vancomycin) 1 dose .XX ASDIRECTED [facility] Discontinued Medications Albuterol/Ipratropium (Duoneb 3.0-0.5 Mg/3 Ml) 3 ml NEB ONETIME ONE Stop: 09/05/17 22:34 Last Admin: 09/05/17 22:52 Dose: 3 ml Albuterol/Ipratropium (Duoneb 3.0-0.5 Mg/3 Ml) 3 ml NEB Q4HRRT [facility] Last Admin: 09/06/17 05:56 Dose: 3 ml Albuterol/Ipratropium (Duoneb 3.0-0.5 Mg/3 Ml) 3 ml NEB Q6HRRT [facility] Last Admin: 09/07/17 12:26 Dose: 3 ml Sodium Chloride (Normal Saline) 1,000 mls @ 30 mls/hr IV STAT ONE Stop: 09/07/17 07:51 Last Admin: 09/05/17 22:52 Dose: 30 mls/hr Metronidazole 500 mg/ Premix 100 mls @ 100 mls/hr IV Q6H [facility] Last Admin: 09/10/17 08:33 Dose: 100 mls/hr Sodium Chloride (Sodium Chloride 0.45%) 1,000 mls @ 100 mls/hr IV ASDIRECTED [facility] Last Infusion: 09/07/17 00:45 Dose: 100 mls/hr Levofloxacin/Dextrose 750 mg/ (Premix) 150 mls @ 100 mls/hr IV ONETIME ONE Stop: 09/06/17 18:21 Last Admin: 09/06/17 17:09 Dose: 100 mls/hr Sodium Chloride (Normal Saline) 1,000 mls @ 999 mls/hr IV ASDIRECTED [facility] Sodium Chloride (Normal Saline) 500 mls @ 125 mls/hr IV ONETIME ONE Stop: 09/09/17 12:29 Last Admin: 09/09/17 09:29 Dose: 125 mls/hr Levofloxacin (Levaquin) 750 mg PO DAILY [facility] Methylprednisolone Sodium Succinate (Solu-Medrol) 125 mg IVPUSH ONETIME ONE Stop: 09/05/17 22:34 Last Admin: 09/05/17 22:51 Dose: 125 mg Methylprednisolone Sodium Succinate (Solu-Medrol) 60 mg IVPUSH Q6H [facility] Last Admin: 09/08/17 03:53 Dose: 60 mg Methylprednisolone Sodium Succinate (Solu-Medrol) 60 mg IVPUSH Q12H [facility] Methylprednisolone Sodium Succinate (Solu-Medrol) 40 mg IVPUSH Q12H [facility] Last Admin: 09/09/17 06:06 Dose: 40 mg Potassium Chloride (Klor-Con M20) 40 meq PO ONETIME ONE Stop: 09/10/17 07:50 Last Admin: 09/10/17 08:24 Dose: 40 meq Prednisone (Prednisone) 40 mg PO WITHBREAKFAST [facility] Last Admin: 09/10/17 08:25 Dose: 40 mg Thyroid ([place] Thyroid) 30 mg PO DAILY [facility] Last Admin: 09/06/17 13:58 Dose: Not Given - Exam Quality Assessment: Supplemental Oxygen, DVT Prophylaxis General: Alert, Oriented, Cooperative, Mild Distress Lungs: Rhonchi (bilateral bases). No: Normal Respiratory Effort (labored at times) Cardiovascular: Regular Rhythm, No Murmurs, Tachycardia (intermittently) GI/Abdominal Exam: Normal Bowel Sounds, Soft, No Organomegaly, No Distention, No Mass, Tender (scant tenderness diffusely) Extremities: Normal Inspection, Normal Range of Motion, Non-Tender, No Pedal Edema, Normal Capillary Refill Neurological: No New Focal Deficit Psy/Mental Status: Alert, Normal Affect, Normal Mood - Problem List & Annotations (1) Respiratory distress SNOMED Code(s): 768543053 Code(s): R06.03 - ACUTE RESPIRATORY DISTRESS Status: Acute Current Visit : Yes (2) Hospital acquired PNA SNOMED Code(s): 497754037 Code(s): J18.9 - PNEUMONIA, UNSPECIFIED ORGANISM Status: Acute Current Visit: Yes (3) Hyperventilation SNOMED Code(s): 72059680 Code(s): R06.4 - HYPERVENTILATION Status: Acute Current Visit: Yes (4) Acute respiratory alkalosis SNOMED Code(s): 61548154 Code(s): E87.3 - ALKALOSIS Status: Acute Current Visit: Yes (5) Hypoxia SNOMED Code(s): 878304601 Code(s): R09.02 - HYPOXEMIA Status: Acute Current Visit: Yes (6) COPD exacerbation SNOMED Code(s): 471748786718124 Code(s): J44.1 - CHRONIC OBSTRUCTIVE PULMONARY DISEASE W (ACUTE) EXACERBATION Status: Acute Current Visit: Yes (7) Cholecystitis SNOMED Code(s): 06867397 Code(s): K81.9 - CHOLECYSTITIS, UNSPECIFIED Status: Acute Current Visit: Yes (8) Hypothyroid SNOMED Code(s): 38480153 Code(s): E03.9 - HYPOTHYROIDISM, UNSPECIFIED Status: Chronic Current Visit: No (9) Polymyositis SNOMED Code(s): 18419817 Code(s): M33.20 - POLYMYOSITIS, ORGAN INVOLVEMENT UNSPECIFIED Status: Chronic Current Visit: No (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 SNOMED Code(s): 24489241 Code(s): GEI9847 - Status: Chronic Current Visit: Yes (11) COPD (chronic obstructive pulmonary disease) SNOMED Code(s): 39718091 Code(s): J44.9 - CHRONIC OBSTRUCTIVE PULMONARY DISEASE, UNSPECIFIED Status : Chronic Current Visit: No Qualifiers: COPD type: chronic bronchitis Chronic bronchitis type: unspecified Qualified Code(s): J42 - Unspecified chronic bronchitis - Problem List Review Problem List Initiated/Reviewed/Updated: Yes - My Orders Last 24 Hours: My Active Orders 09/10/17 09:30 Piperacillin/Tazobactam [Piperacil-Tazobact] 4.5 gm Sodium Chloride 0.9% [ Normal Saline] 100 ml IV Q6H Sodium Chloride 0.9% [Normal Saline] 1,000 ml IV ASDIRECTED Vancomycin Pharmacy to Dose [Pharmacy to Dose - Vancomycin] 1 dose .XX ASDIRECTED 09/10/17 09:33 Telemetry Monitoring [Cardiac Monitoring] [RC] Q8H 09/10/17 09:45 Transfer Patient (Change bed) [ADT] Routine 09/10/17 10:47 Morphine 2 mg IVPUSH Q4H PRN 09/10/17 11:39 Sodium Chloride 0.65% [[place] Nasal [place]] 0 ml ЕКАТЕРИНА QID PRN 09/10/17 12:00 Vancomycin [Vancocin] 1 gm Sodium Chloride 0.9% [Normal Saline] 250 ml IV Q12H 09/10/17 16:00 methylPREDNISolone Sod Succ [Solu-MEDROL] 40 mg IVPUSH Q8H 09/11/17 23:30 VANCOMYCIN TROUGH [CHEM] Routine 09/12/17 05:11 BASIC METABOLIC PANEL,BMP [CHEM] AM CBC WITH AUTO DIFF [HEME] AM MG [MAGNESIUM] [CHEM] AM 09/13/17 05:11 BASIC METABOLIC PANEL,BMP [CHEM] AM CBC WITH AUTO DIFF [HEME] AM MG [MAGNESIUM] [CHEM] AM - Plan Plan:: This 67 year old female admitted with COPD exacerbation and RUQ abdominal pain 1. HCAP: Improving, leukocytosis resolved, now 8,000. BC pending. Continue Levaquin, Vancomycin and Zosyn. Tachycardia improved with hydration, does increase with dyspnea and anxiety. Morphine ordered for air hunger/SOB. 2. COPD: Stable. Continue Solumedrol 40 mg Q8 hrs. Monitor. Wean O2 as possible to keep sats 88% or better. Morphine has helped with SOB, continue this and monitor Respiratory status closely. 2. Polymyositis: in remission. 3. Hypothyroidism: Stable. Continue [place] Thyroid VTE prophylaxis: Heparin Q12h GI prophylaxis: Protonix. Dispo: remain in ICU today for close monitor. 2-3 more days pending improvement.
[2017-09-11] MEDS: Thyroid 60 MG Tab PO SCH (08:13)
[2017-09-11] MEDS: Fluticasone Propionate Nasal Spray 16 GM Bottle NASBOTH SCH (08:16)
[2017-09-11] MEDS: Nicotine 21 MG/24 Hr Patch TRDERM SCH (08:16)
[2017-09-11] MEDS: Tiotropium Inhaler 18 MCG Inhalation Powder Cap Kit of 5 INH SCH ×2 (08:17→21:18)
[2017-09-11] MEDS: Sodium Chloride 0.65% Nasal Spray 45 ML Bottle NAS PRN (11:20)
[2017-09-11] MEDS: Levofloxacin/Dextrose 5%-Water 750 MG in Premix Bag 1 BAG IV SCH (16:25)
[2017-09-11] MEDS: LORazepam 2 MG/ML SDV IVPUSH PRN (23:59)
[2017-09-12] MEDS: methylPREDNISolone Sodium Succinate 40 MG/1 ML SDV IVPUSH SCH ×3 (00:02→15:12)
[2017-09-12] MEDS: Pantoprazole 40 MG Vial IVPUSH SCH ×2 (00:59→13:26)
[2017-09-12] MEDS: Albuterol/Ipratropium 3.0-0.5 MG/3 ML Neb Soln NEB SCH ×7 (01:01→23:55)
[2017-09-12] MEDS: Piperacillin/Tazobactam 4.5 GM in Sodium Chloride 0.9% 100 ML IV SCH ×4 (02:46→22:18)
[2017-09-12 06:38] LABS: CHLORIDE,CL 107 mmol/L (98-110); SODIUM,NA 138 mmol/L (136-146)
[2017-09-12] MEDS: Insulin Aspart 100 Units/ML 3 ML Pen SUBCUT SCH ×3 (06:50→17:17)
[2017-09-12] MEDS: Sodium Chloride 0.65% Nasal Spray 45 ML Bottle NAS PRN (07:57)
[2017-09-12] MEDS: Nicotine 21 MG/24 Hr Patch TRDERM SCH (07:59)
[2017-09-12] MEDS: Fluticasone Propionate Nasal Spray 16 GM Bottle NASBOTH SCH (08:02)
[2017-09-12] MEDS: Thyroid 60 MG Tab PO SCH (08:02)
[2017-09-12] MEDS: Sodium Chloride 0.9% 1,000 ML IV SCH (08:25)
[2017-09-12] MEDS: Tiotropium Inhaler 18 MCG Inhalation Powder Cap Kit of 5 INH SCH ×2 (09:02→21:11)
[2017-09-12] MEDS ORDERED: Calcium Carbonate 500 MG Tab.Chew PO ONE (09:53)
[2017-09-12] MEDS ORDERED: Magnesium Sulfate/Water 4 GM in Premix Bag 1 BAG IV ONE (09:54)
--- NOTE | 2017-09-12 10:03 | PCM.PN ---
- General Info Date of Service: 09/12/17 Admission Dx/Problem (Free Text): Admission Diagnosis/Problem Admission Diagnosis/Problem COPD, Moderate chronic obstructive pulmonary disease, abdominal pain Subjective Update: Doing better this morning. Decreased O2 requirement to 2L/nc. No pain. Would like to be up walking more but needs a walker. Eating well and hydrating well so we have dced IVF. Normal BM's. Slept well. Functional Status: Reports: Pain Controlled - Review of Systems General: Reports: Weakness, Fatigue, Appetite. Denies: Fever HEENT: Denies: Dysphasia, Headaches Pulmonary: Reports: Shortness of Breath. Denies: Pleuritic Chest Pain, Hemoptysis Cardiovascular: Reports: Edema. Denies: Chest Pain, Palpitations Gastrointestinal: Denies: Abdominal Pain, Constipation, Nausea, Vomiting Genitourinary: Denies: Dysuria, Hematuria Musculoskeletal: Denies: Leg Pain Skin: Denies: Cyanosis Neurological: Denies: Confusion, Dizziness Psychiatric: Denies: Confusion - Patient Data Vitals - Most Recent: Last Vital Signs Temp 99 F 09/12/17 08:00 Pulse 114 H 09/11/17 19:00 Resp 20 09/12/17 09:00 BP 134/67 09/12/17 09:00 Pulse Ox 94 L 09/12/17 09:00 Weight - Most Recent: 67.2 kg I&O - Last 24 Hours: Intake & Output 09/11/17 09/12/17 09/12/17 22:59 06:59 14:59 Intake Total 2163 750 100 Output Total 750 600 Balance 1413 150 100 Lab Results Last 24 Hours: Laboratory Results - last 24 hr 09/11/17 09/11/17 09/11/17 Range/Units 11:13 16:17 23:28 WBC (4.0-11.0) K/uL RBC (4.30-5.90) M/uL Hgb (12.0-16.0) g/dL Hct (36.0-46.0) % MCV (80.0-98.0) fL MCH (27.0-32.0) pg MCHC (31.0-37.0) g/dL RDW Std Deviation (28.0-62.0) fl RDW Coeff of Doris (11.0-15.0) % Plt Count (150-400) K/uL MPV (7.40-12.00) fL Neut % (Auto) (48.0-80.0) % Lymph % (Auto) (16.0-40.0) % [place] % (Auto) (0.0-15.0) % Eos % (Auto) (0.0-7.0) % Baso % (Auto) (0.0-1.5) % Neut # (Auto) (1.4-5.7) K/uL Lymph # (Auto) (0.6-2.4) K/uL [place] # (Auto) (0.0-0.8) K/uL Eos # (Auto) (0.0-0.7) K/uL Baso # (Auto) (0.0-0.1) K/uL Nucleated RBC % /100WBC Nucleated RBCs # K/uL Sodium (136-146) mmol/L Potassium (3.5-5.1) mmol/L Chloride (98-110) mmol/L Carbon Dioxide (21-31) mmol/L BUN (6.0-23.0) mg/dL Creatinine (0.6-1.5) mg/dL Est Cr Clr Drug Dosing mL/min Estimated GFR (MDRD) ml/min Glucose (60-110) mg/dL POC Glucose 197 H 209 H (60-110) mg/dL Calcium (8.8-10.8) mg/dL Magnesium (1.5-2.3) mEq/L Vancomycin Trough 7.9 (5-15) ug/mL 09/12/17 09/12/17 09/12/17 Range/Units 06:09 06:09 06:21 WBC 11.88 H (4.0-11.0) K/uL RBC 3.62 L (4.30-5.90) M/uL Hgb 10.1 L (12.0-16.0) g/dL Hct 31.3 L (36.0-46.0) % MCV 86.5 (80.0-98.0) fL MCH 27.9 (27.0-32.0) pg MCHC 32.3 (31.0-37.0) g/dL RDW Std Deviation 47.9 (28.0-62.0) fl RDW Coeff of Doris 15 (11.0-15.0) % Plt Count 322 (150-400) K/uL MPV 9.20 (7.40-12.00) fL Neut % (Auto) 88.4 H (48.0-80.0) % Lymph % (Auto) 5.0 L (16.0-40.0) % [place] % (Auto) 6.5 (0.0-15.0) % Eos % (Auto) 0.0 (0.0-7.0) % Baso % (Auto) 0.1 (0.0-1.5) % Neut # (Auto) 10.5 H (1.4-5.7) K/uL Lymph # (Auto) 0.6 (0.6-2.4) K/uL [place] # (Auto) 0.8 (0.0-0.8) K/uL Eos # (Auto) 0.0 (0.0-0.7) K/uL Baso # (Auto) 0.0 (0.0-0.1) K/uL Nucleated RBC % 0.0 /100WBC Nucleated RBCs # 0 K/uL Sodium 138 (136-146) mmol/L Potassium 4.0 (3.5-5.1) mmol/L Chloride 107 (98-110) mmol/L Carbon Dioxide 23 (21-31) mmol/L BUN 18 (6.0-23.0) mg/dL Creatinine 0.8 (0.6-1.5) mg/dL Est Cr Clr Drug Dosing 61.40 mL/min Estimated GFR (MDRD) > 60.0 ml/min Glucose 186 H (60-110) mg/dL POC Glucose 183 H (60-110) mg/dL Calcium 7.8 L (8.8-10.8) mg/dL Magnesium 1.4 L (1.5-2.3) mEq/L Vancomycin Trough (5-15) ug/mL Vikash Results Last 24 Hours: Microbiology 09/10/17 14:50 Respiratory Virus Panel (PCR) (VIKASH) - Final Nasopharyngeal Swab - Nare, Left 09/10/17 14:32 Aerobic Blood Culture - Preliminary Blood - Venous - Lab Draw NO GROWTH AFTER 1 DAY Anaerobic Blood Culture - Preliminary NO GROWTH AFTER 1 DAY 09/10/17 14:24 Aerobic Blood Culture - Preliminary Blood - Venous NO GROWTH AFTER 1 DAY Anaerobic Blood Culture - Preliminary NO GROWTH AFTER 1 DAY 09/11/17 11:10 Gram Stain - Preliminary Sputum - Expectorated Med Orders - Current: Current Medications Acetaminophen (Tylenol) 650 mg PO Q6H PRN PRN Reason: Pain Last Admin: 09/06/17 04:29 Dose: 650 mg Albuterol/Ipratropium (Duoneb 3.0-0.5 Mg/3 Ml) 3 ml NEB Q4HRRT [facility] Last Admin: 09/12/17 06:04 Dose: 3 ml Calcium Carbonate/Glycine (Tums) 1,000 mg PO ONETIME ONE Stop: 09/12/17 09:54 Fluticasone Propionate (Flonase) 0 gm NASBOTH DAILY [facility] Last Admin: 09/12/17 08:02 Dose: 2 spray Levofloxacin/Dextrose 750 mg/ (Premix) 150 mls @ 100 mls/hr IV Q24H [facility] Last Admin: 09/11/17 16:25 Dose: 100 mls/hr Piperacillin Sod/Tazobactam (Sod 4.5 gm/ Sodium Chloride) 100 mls @ 100 mls/hr IV Q6H [facility] Last Admin: 09/12/17 08:30 Dose: 100 mls/hr Sodium Chloride (Normal Saline) 1,000 mls @ 75 mls/hr IV ASDIRECTED [facility] Last Admin: 09/12/17 08:25 Dose: 75 mls/hr Vancomycin HCl 1 gm/ Sodium (Chloride) 250 mls @ 166.667 mls/hr IV Q8H [facility] Last Admin: 09/12/17 09:32 Dose: 166.667 mls/hr Magnesium Sulfate 4 gm/ Premix 100 mls @ 25 mls/hr IV ONETIME ONE Stop: 09/12/17 13:53 Insulin Aspart (Novolog) 0 unit SUBCUT TIDAC PRABHU PRN Reason: Protocol Last Admin: 09/12/17 06:50 Dose: 1 unit Lorazepam (Ativan) 1 mg IVPUSH BEDTIME PRN PRN Reason: Insomnia Last Admin: 09/11/17 23:59 Dose: 1 mg Meclizine HCl (Antivert) 25 mg PO TID PRN PRN Reason: Dizziness Methylprednisolone Sodium Succinate (Solu-Medrol) 40 mg IVPUSH Q8H [facility] Last Admin: 09/12/17 07:54 Dose: 40 mg Morphine Sulfate (Morphine) 2 mg IVPUSH Q4H PRN PRN Reason: air hunger,SOB hyperventilatio Last Admin: 09/10/17 16:38 Dose: 2 mg Nicotine (Habitrol) 21 mg TRDERM DAILY [facility] Last Admin: 09/12/17 07:59 Dose: 21 mg Pantoprazole Sodium (Protonix Iv) 40 mg IVPUSH Q12H [facility] Last Admin: 09/12/17 00:59 Dose: 40 mg Sodium Chloride (Saline Flush) 2.5 ml FLUSH ASDIRECTED [facility] Sodium Chloride ([place] Nasal [place]) 0 ml ЕКАТЕРИНА QID PRN PRN Reason: sinus congestion Last Admin: 09/12/17 07:57 Dose: 2 sprays Thyroid ([place] Thyroid) 30 mg PO DAILY [facility] Last Admin: 09/12/17 08:02 Dose: 30 mg Tiotropium [place] (Spiriva Handihaler) 1 mcg INH BID [facility] Last Admin: 09/12/17 09:02 Dose: 1 inhalation Vancomycin HCl (Pharmacy To Dose - Vancomycin) 1 dose .XX ASDIRECTED [facility] Discontinued Medications Albuterol/Ipratropium (Duoneb 3.0-0.5 Mg/3 Ml) 3 ml NEB ONETIME ONE Stop: 09/05/17 22:34 Last Admin: 09/05/17 22:52 Dose: 3 ml Albuterol/Ipratropium (Duoneb 3.0-0.5 Mg/3 Ml) 3 ml NEB Q4HRRT [facility] Last Admin: 09/06/17 05:56 Dose: 3 ml Albuterol/Ipratropium (Duoneb 3.0-0.5 Mg/3 Ml) 3 ml NEB Q6HRRT [facility] Last Admin: 09/07/17 12:26 Dose: 3 ml Sodium Chloride (Normal Saline) 1,000 mls @ 30 mls/hr IV STAT ONE Stop: 09/07/17 07:51 Last Admin: 09/05/17 22:52 Dose: 30 mls/hr Metronidazole 500 mg/ Premix 100 mls @ 100 mls/hr IV Q6H [facility] Last Admin: 09/10/17 08:33 Dose: 100 mls/hr Sodium Chloride (Sodium Chloride 0.45%) 1,000 mls @ 100 mls/hr IV ASDIRECTED [facility] Last Infusion: 09/07/17 00:45 Dose: 100 mls/hr Levofloxacin/Dextrose 750 mg/ (Premix) 150 mls @ 100 mls/hr IV ONETIME ONE Stop: 09/06/17 18:21 Last Admin: 09/06/17 17:09 Dose: 100 mls/hr Sodium Chloride (Normal Saline) 1,000 mls @ 999 mls/hr IV ASDIRECTED [facility] Sodium Chloride (Normal Saline) 500 mls @ 125 mls/hr IV ONETIME ONE Stop: 09/09/17 12:29 Last Admin: 09/09/17 09:29 Dose: 125 mls/hr Sodium Chloride (Normal Saline) 1,000 mls @ 100 mls/hr IV ASDIRECTED [facility] Last Infusion: 09/11/17 09:14 Dose: 75 mls/hr Vancomycin HCl 1 gm/ Sodium (Chloride) 250 mls @ 250 mls/hr IV Q12H [facility] Last Admin: 09/12/17 00:57 Dose: Not Given Vancomycin HCl 1,250 mg/ (Dextrose/Water) 250 mls @ 166.667 mls/hr IV Q12H [facility] Last Admin: 09/12/17 00:58 Dose: Not Given Vancomycin HCl 1,250 mg/ (Sodium Chloride) 250 mls @ 166.667 mls/hr IV Q12H [facility] Last Admin: 09/12/17 01:00 Dose: 166.667 mls/hr Levofloxacin (Levaquin) 750 mg PO DAILY [facility] Methylprednisolone Sodium Succinate (Solu-Medrol) 125 mg IVPUSH ONETIME ONE Stop: 09/05/17 22:34 Last Admin: 09/05/17 22:51 Dose: 125 mg Methylprednisolone Sodium Succinate (Solu-Medrol) 60 mg IVPUSH Q6H [facility] Last Admin: 09/08/17 03:53 Dose: 60 mg Methylprednisolone Sodium Succinate (Solu-Medrol) 60 mg IVPUSH Q12H [facility] Methylprednisolone Sodium Succinate (Solu-Medrol) 40 mg IVPUSH Q12H [facility] Last Admin: 09/09/17 06:06 Dose: 40 mg Potassium Chloride (Klor-Con M20) 40 meq PO ONETIME ONE Stop: 09/10/17 07:50 Last Admin: 09/10/17 08:24 Dose: 40 meq Prednisone (Prednisone) 40 mg PO WITHBREAKFAST [facility] Last Admin: 09/10/17 08:25 Dose: 40 mg Thyroid ([place] Thyroid) 30 mg PO DAILY [facility] Last Admin: 09/06/17 13:58 Dose: Not Given - Exam Quality Assessment: DVT Prophylaxis General: Alert, Oriented, Cooperative HEENT: Pupils Equal, Pupils Reactive, EOMI, Mucous Membr. Moist/[place] Neck: Supple, Trachea Midline Lungs: Clear to Auscultation, Wheezing. No: Rales, Rhonchi Cardiovascular: Regular Rate, Regular Rhythm GI/Abdominal Exam: Normal Bowel Sounds, Soft, Non-Tender, No Distention Back Exam: Normal Inspection Extremities: Normal Inspection, Normal Range of Motion, Non-Tender, Normal Capillary Refill, Pedal Edema (mild edema blateral when sitting). No: Peterson's Sign Peripheral Pulses: 2+: Radial (L), Radial (R), Posterior Tibial (L), Posterior Tibial (R), Dorsalis Pedis (L), Dorsalis Pedis (R) Skin: Warm, Dry, Intact Neurological: No New Focal Deficit Psy/Mental Status: Alert, Normal Affect, Normal Mood - Problem List Review Problem List Initiated/Reviewed/Updated: Yes - My Orders Last 24 Hours: My Active Orders 09/11/17 17:40 LORazepam [Ativan] 1 mg IVPUSH BEDTIME PRN 09/12/17 09:51 Transfer Patient (Change bed) [ADT] Routine 09/12/17 09:52 Telemetry Monitoring [Cardiac Monitoring] [RC] . DIRECTED 09/12/17 09:53 Calcium Carbonate [Tums] 1,000 mg PO ONETIME ONE 09/12/17 09:54 Magnesium Sulfate/Water [Magnesium Sulfate 4 GM in Water 100 ML] 4 gm Premix Bag 1 bag IV ONETIME - Plan Plan:: 67 year old female admitted with COPD exacerbation and RUQ abdominal pain 1. HCAP: Improving, mild leukocytosis this am 11.88. BC pending. Continue Levaquin day 5, Vancomycin and Zosyn day 3. Tachycardia improved with ativan given last evening. She has been tachy since in ICU. Gave 1 mg Ativan at bed last evening and nontachy through even and this morning. Tachy may have large anxiety component. Will transfer to floor today. 2. COPD: Stable. Continue Solumedrol 40 mg Q8 hrs. Monitor. Weaned O2 to 2 L overnight. Morphine helped with SOB, continue this and monitor Respiratory status closely. 2. Polymyositis: in remission. 3. Hypothyroidism: Stable. Continue [place] Thyroid VTE prophylaxis: Heparin Q12h GI prophylaxis: Protonix. Dispo: Transfer to floor today. Expect 2-3 more days
[2017-09-12] MEDS: Levofloxacin/Dextrose 5%-Water 750 MG in Premix Bag 1 BAG IV SCH (16:23)
--- NOTE | 2017-09-12 17:25 | PCM.SN ---
- Free Text/Narrative Note: Talked with patients daughter, Karely [phone],. She lives in [place]. Gave update on patients status. She is currently working to find out what she would need to do to get her mother there if she was not able to go home after discharge. She states that her mother most likely would be amible to home health but would definetely refuse [facility] even if for a short time. If [facility] is found to be the only appropriate place for the patient at time of discharge, she is planning on trying to move her mother to [place] to live with her. So she would appreciate being kept up to date on patients status so she can plan accordingly since she lives in [place].
[2017-09-12] MEDS: LORazepam 2 MG/ML SDV IVPUSH PRN (22:17)
[2017-09-13] MEDS: Pantoprazole 40 MG Vial IVPUSH SCH (02:25)
[2017-09-13] MEDS: Albuterol/Ipratropium 3.0-0.5 MG/3 ML Neb Soln NEB SCH ×7 (02:25→21:48)
[2017-09-13] MEDS: Piperacillin/Tazobactam 4.5 GM in Sodium Chloride 0.9% 100 ML IV SCH ×4 (02:44→21:17)
[2017-09-13] MEDS: Insulin Aspart 100 Units/ML 3 ML Pen SUBCUT SCH ×3 (07:25→18:00)
[2017-09-13] MEDS: methylPREDNISolone Sodium Succinate 40 MG/1 ML SDV IVPUSH SCH ×2 (07:44)
[2017-09-13] MEDS: Thyroid 60 MG Tab PO SCH (08:02)
[2017-09-13] MEDS: Nicotine 21 MG/24 Hr Patch TRDERM SCH (08:03)
[2017-09-13] MEDS: Fluticasone Propionate Nasal Spray 16 GM Bottle NASBOTH SCH (08:03)
[2017-09-13 08:27] LABS: CHLORIDE,CL 104 mmol/L (98-110); SODIUM,NA 136 mmol/L (136-146)
[2017-09-13] MEDS: Pantoprazole 40 MG Tab.CR PO SCH (09:25)
[2017-09-13] MEDS: Tiotropium Inhaler 18 MCG Inhalation Powder Cap Kit of 5 INH SCH ×2 (09:55→20:57)
--- NOTE | 2017-09-13 11:55 | PCM.PN ---
- General Info Date of Service: 09/13/17 Admission Dx/Problem (Free Text): Admission Diagnosis/Problem Admission Diagnosis/Problem COPD, Moderate chronic obstructive pulmonary disease, abdominal pain Subjective Update: Continues to feel better. Was up and ambulating yesterday well. Eating and drinking without difficulty. Breathing continues to improve. No chest pain, palp, abd. pain, having normal bm's, no leg pain. Functional Status: Reports: Pain Controlled - Review of Systems General: Reports: Weakness. Denies: Fever, Fatigue HEENT: Denies: Visual Changes Pulmonary: Reports: Shortness of Breath, Wheezing. Denies: Pleuritic Chest Pain , Hemoptysis Cardiovascular: Denies: Chest Pain, Edema Gastrointestinal: Denies: Abdominal Pain, Diarrhea, Nausea, Vomiting Genitourinary: Denies: Dysuria, Hematuria Musculoskeletal: Denies: Neck Pain, Leg Pain Skin: Denies: Cyanosis Neurological: Denies: Confusion, Dizziness Psychiatric: Denies: Confusion, Depression - Patient Data Vitals - Most Recent: Last Vital Signs Temp 98 F 09/13/17 08:00 Pulse 105 H 09/13/17 08:00 Resp 18 09/13/17 08:00 BP 142/65 H 09/13/17 08:00 Pulse Ox 96 09/13/17 08:00 Weight - Most Recent: 70.5 kg I&O - Last 24 Hours: Intake & Output 09/12/17 09/13/17 09/13/17 22:59 06:59 14:59 Intake Total 990 810 100 Output Total 850 400 Balance 140 410 100 Lab Results Last 24 Hours: Laboratory Results - last 24 hr 09/12/17 09/12/17 09/13/17 Range/Units 16:03 20:59 06:16 WBC (4.0-11.0) K/uL RBC (4.30-5.90) M/uL Hgb (12.0-16.0) g/dL Hct (36.0-46.0) % MCV (80.0-98.0) fL MCH (27.0-32.0) pg MCHC (31.0-37.0) g/dL RDW Std Deviation (28.0-62.0) fl RDW Coeff of Doris (11.0-15.0) % Plt Count (150-400) K/uL MPV (7.40-12.00) fL Neut % (Auto) (48.0-80.0) % Lymph % (Auto) (16.0-40.0) % Winn % (Auto) (0.0-15.0) % Eos % (Auto) (0.0-7.0) % Baso % (Auto) (0.0-1.5) % Neut # (Auto) (1.4-5.7) K/uL Lymph # (Auto) (0.6-2.4) K/uL Winn # (Auto) (0.0-0.8) K/uL Eos # (Auto) (0.0-0.7) K/uL Baso # (Auto) (0.0-0.1) K/uL Nucleated RBC % /100WBC Nucleated RBCs # K/uL Sodium (136-146) mmol/L Potassium (3.5-5.1) mmol/L Chloride (98-110) mmol/L Carbon Dioxide (21-31) mmol/L BUN (6.0-23.0) mg/dL Creatinine (0.6-1.5) mg/dL Est Cr Clr Drug Dosing mL/min Estimated GFR (MDRD) ml/min Glucose (60-110) mg/dL POC Glucose 224 H 183 H 156 H (60-110) mg/dL Calcium (8.8-10.8) mg/dL Magnesium (1.5-2.3) mEq/L Vancomycin Trough (5-15) ug/mL 09/13/17 09/13/17 09/13/17 Range/Units 07:58 07:58 07:58 WBC 15.26 H (4.0-11.0) K/uL RBC 3.65 L (4.30-5.90) M/uL Hgb 10.3 L (12.0-16.0) g/dL Hct 31.5 L (36.0-46.0) % MCV 86.3 (80.0-98.0) fL MCH 28.2 (27.0-32.0) pg MCHC 32.7 (31.0-37.0) g/dL RDW Std Deviation 47.8 (28.0-62.0) fl RDW Coeff of Doris 15 (11.0-15.0) % Plt Count 353 (150-400) K/uL MPV 9.40 (7.40-12.00) fL Neut % (Auto) 77.4 (48.0-80.0) % Lymph % (Auto) 11.5 L (16.0-40.0) % Winn % (Auto) 11.0 (0.0-15.0) % Eos % (Auto) 0.0 (0.0-7.0) % Baso % (Auto) 0.1 (0.0-1.5) % Neut # (Auto) 11.8 H (1.4-5.7) K/uL Lymph # (Auto) 1.8 (0.6-2.4) K/uL Winn # (Auto) 1.7 H (0.0-0.8) K/uL Eos # (Auto) 0.0 (0.0-0.7) K/uL Baso # (Auto) 0.0 (0.0-0.1) K/uL Nucleated RBC % 0.0 /100WBC Nucleated RBCs # 0 K/uL Sodium 136 (136-146) mmol/L Potassium 3.4 L (3.5-5.1) mmol/L Chloride 104 (98-110) mmol/L Carbon Dioxide 22 (21-31) mmol/L BUN 2 L (6.0-23.0) mg/dL Creatinine 0.8 (0.6-1.5) mg/dL Est Cr Clr Drug Dosing 61.40 mL/min Estimated GFR (MDRD) > 60.0 ml/min Glucose 146 H (60-110) mg/dL POC Glucose (60-110) mg/dL Calcium 8.0 L (8.8-10.8) mg/dL Magnesium 1.7 (1.5-2.3) mEq/L Vancomycin Trough 20.0 H (5-15) ug/mL 09/13/17 Range/Units 11:22 WBC (4.0-11.0) K/uL RBC (4.30-5.90) M/uL Hgb (12.0-16.0) g/dL Hct (36.0-46.0) % MCV (80.0-98.0) fL MCH (27.0-32.0) pg MCHC (31.0-37.0) g/dL RDW Std Deviation (28.0-62.0) fl RDW Coeff of Doris (11.0-15.0) % Plt Count (150-400) K/uL MPV (7.40-12.00) fL Neut % (Auto) (48.0-80.0) % Lymph % (Auto) (16.0-40.0) % Winn % (Auto) (0.0-15.0) % Eos % (Auto) (0.0-7.0) % Baso % (Auto) (0.0-1.5) % Neut # (Auto) (1.4-5.7) K/uL Lymph # (Auto) (0.6-2.4) K/uL Winn # (Auto) (0.0-0.8) K/uL Eos # (Auto) (0.0-0.7) K/uL Baso # (Auto) (0.0-0.1) K/uL Nucleated RBC % /100WBC Nucleated RBCs # K/uL Sodium (136-146) mmol/L Potassium (3.5-5.1) mmol/L Chloride (98-110) mmol/L Carbon Dioxide (21-31) mmol/L BUN (6.0-23.0) mg/dL Creatinine (0.6-1.5) mg/dL Est Cr Clr Drug Dosing mL/min Estimated GFR (MDRD) ml/min Glucose (60-110) mg/dL POC Glucose 241 H (60-110) mg/dL Calcium (8.8-10.8) mg/dL Magnesium (1.5-2.3) mEq/L Vancomycin Trough (5-15) ug/mL Vikash Results Last 24 Hours: Microbiology 09/11/17 11:10 Gram Stain - Preliminary Sputum - Expectorated Sputum Culture - Final YEAST Normal Respiratory Lois 09/10/17 14:32 Aerobic Blood Culture - Preliminary Blood - Venous - Lab Draw NO GROWTH AFTER 2 DAYS Anaerobic Blood Culture - Preliminary NO GROWTH AFTER 2 DAYS 09/10/17 14:24 Aerobic Blood Culture - Preliminary Blood - Venous NO GROWTH AFTER 2 DAYS Anaerobic Blood Culture - Preliminary NO GROWTH AFTER 2 DAYS Med Orders - Current: Current Medications Acetaminophen (Tylenol) 650 mg PO Q6H PRN PRN Reason: Pain Last Admin: 09/06/17 04:29 Dose: 650 mg Albuterol/Ipratropium (Duoneb 3.0-0.5 Mg/3 Ml) 3 ml NEB Q4HRRT [facility] Last Admin: 09/13/17 09:35 Dose: 3 ml Fluticasone Propionate (Flonase) 0 gm NASBOTH DAILY [facility] Last Admin: 09/13/17 08:03 Dose: 2 spray Levofloxacin/Dextrose 750 mg/ (Premix) 150 mls @ 100 mls/hr IV Q24H [facility] Last Admin: 09/12/17 16:23 Dose: 100 mls/hr Piperacillin Sod/Tazobactam (Sod 4.5 gm/ Sodium Chloride) 100 mls @ 100 mls/hr IV Q6H [facility] Last Admin: 09/13/17 08:31 Dose: 100 mls/hr Vancomycin HCl 1 gm/ Sodium (Chloride) 250 mls @ 166.667 mls/hr IV Q8H [facility] Last Admin: 09/13/17 09:26 Dose: 166.667 mls/hr Insulin Aspart (Novolog) 0 unit SUBCUT TIDAC [facility] PRN Reason: Protocol Last Admin: 09/13/17 07:25 Dose: 1 unit Lorazepam (Ativan) 1 mg IVPUSH BEDTIME PRN PRN Reason: Insomnia Last Admin: 09/12/17 22:17 Dose: 1 mg Meclizine HCl (Antivert) 25 mg PO TID PRN PRN Reason: Dizziness Morphine Sulfate (Morphine) 2 mg IVPUSH Q4H PRN PRN Reason: air hunger,SOB hyperventilatio Last Admin: 09/10/17 16:38 Dose: 2 mg Nicotine (Habitrol) 21 mg TRDERM DAILY [facility] Last Admin: 09/13/17 08:03 Dose: 21 mg Pantoprazole Sodium (Protonix) 40 mg PO DAILY [facility] Last Admin: 09/13/17 09:25 Dose: 40 mg Prednisone (Prednisone) 60 mg PO WITHBREAKFAST [facility] Sodium Chloride (Saline Flush) 2.5 ml FLUSH ASDIRECTED [facility] Sodium Chloride ([place] Nasal [place]) 0 ml ЕКАТЕРИНА QID PRN PRN Reason: sinus congestion Last Admin: 09/12/17 07:57 Dose: 2 sprays Thyroid ([place] Thyroid) 30 mg PO DAILY [facility] Last Admin: 09/13/17 08:02 Dose: 30 mg Tiotropium Hertel (Spiriva Handihaler) 1 mcg INH BID [facility] Last Admin: 09/13/17 09:55 Dose: 1 inhalation Vancomycin HCl (Pharmacy To Dose - Vancomycin) 1 dose .XX ASDIRECTED [facility] Discontinued Medications Albuterol/Ipratropium (Duoneb 3.0-0.5 Mg/3 Ml) 3 ml NEB ONETIME ONE Stop: 09/05/17 22:34 Last Admin: 09/05/17 22:52 Dose: 3 ml Albuterol/Ipratropium (Duoneb 3.0-0.5 Mg/3 Ml) 3 ml NEB Q4HRRT [facility] Last Admin: 09/06/17 05:56 Dose: 3 ml Albuterol/Ipratropium (Duoneb 3.0-0.5 Mg/3 Ml) 3 ml NEB Q6HRRT [facility] Last Admin: 09/07/17 12:26 Dose: 3 ml Calcium Carbonate/Glycine (Tums) 1,000 mg PO ONETIME ONE Stop: 09/12/17 09:54 Last Admin: 09/12/17 10:24 Dose: 1,000 mg Sodium Chloride (Normal Saline) 1,000 mls @ 30 mls/hr IV STAT ONE Stop: 09/07/17 07:51 Last Admin: 09/05/17 22:52 Dose: 30 mls/hr Metronidazole 500 mg/ Premix 100 mls @ 100 mls/hr IV Q6H [facility] Last Admin: 09/10/17 08:33 Dose: 100 mls/hr Sodium Chloride (Sodium Chloride 0.45%) 1,000 mls @ 100 mls/hr IV ASDIRECTED [facility] Last Infusion: 09/07/17 00:45 Dose: 100 mls/hr Levofloxacin/Dextrose 750 mg/ (Premix) 150 mls @ 100 mls/hr IV ONETIME ONE Stop: 09/06/17 18:21 Last Admin: 09/06/17 17:09 Dose: 100 mls/hr Sodium Chloride (Normal Saline) 1,000 mls @ 999 mls/hr IV ASDIRECTED [facility] Sodium Chloride (Normal Saline) 500 mls @ 125 mls/hr IV ONETIME ONE Stop: 09/09/17 12:29 Last Admin: 09/09/17 09:29 Dose: 125 mls/hr Sodium Chloride (Normal Saline) 1,000 mls @ 100 mls/hr IV ASDIRECTED [facility] Last Infusion: 09/11/17 09:14 Dose: 75 mls/hr Vancomycin HCl 1 gm/ Sodium (Chloride) 250 mls @ 250 mls/hr IV Q12H [facility] Last Admin: 09/12/17 00:57 Dose: Not Given Sodium Chloride (Normal Saline) 1,000 mls @ 75 mls/hr IV ASDIRECTED [facility] Last Admin: 09/12/17 08:25 Dose: 75 mls/hr Vancomycin HCl 1,250 mg/ (Dextrose/Water) 250 mls @ 166.667 mls/hr IV Q12H [facility] Last Admin: 09/12/17 00:58 Dose: Not Given Vancomycin HCl 1,250 mg/ (Sodium Chloride) 250 mls @ 166.667 mls/hr IV Q12H [facility] Last Admin: 09/12/17 01:00 Dose: 166.667 mls/hr Magnesium Sulfate 4 gm/ Premix 100 mls @ 25 mls/hr IV ONETIME ONE Stop: 09/12/17 13:53 Last Admin: 09/12/17 10:35 Dose: 25 mls/hr Levofloxacin (Levaquin) 750 mg PO DAILY [facility] Methylprednisolone Sodium Succinate (Solu-Medrol) 125 mg IVPUSH ONETIME ONE Stop: 09/05/17 22:34 Last Admin: 09/05/17 22:51 Dose: 125 mg Methylprednisolone Sodium Succinate (Solu-Medrol) 60 mg IVPUSH Q6H [facility] Last Admin: 09/08/17 03:53 Dose: 60 mg Methylprednisolone Sodium Succinate (Solu-Medrol) 60 mg IVPUSH Q12H [facility] Methylprednisolone Sodium Succinate (Solu-Medrol) 40 mg IVPUSH Q12H [facility] Last Admin: 09/09/17 06:06 Dose: 40 mg Methylprednisolone Sodium Succinate (Solu-Medrol) 40 mg IVPUSH Q8H [facility] Last Admin: 09/13/17 07:44 Dose: 40 mg Pantoprazole Sodium (Protonix Iv) 40 mg IVPUSH Q12H [facility] Last Admin: 09/13/17 02:25 Dose: 40 mg Potassium Chloride (Klor-Con M20) 40 meq PO ONETIME ONE Stop: 09/10/17 07:50 Last Admin: 09/10/17 08:24 Dose: 40 meq Prednisone (Prednisone) 40 mg PO WITHBREAKFAST [facility] Last Admin: 09/10/17 08:25 Dose: 40 mg Thyroid ([place] Thyroid) 30 mg PO DAILY [facility] Last Admin: 09/06/17 13:58 Dose: Not Given - Exam Quality Assessment: Supplemental Oxygen, DVT Prophylaxis General: Alert, Oriented, Cooperative, No Acute Distress HEENT: Pupils Equal, Pupils Reactive, EOMI, Mucous Membr. Moist/[place] Neck: Supple, Trachea Midline, No JVD Lungs: Normal Respiratory Effort, Wheezing Cardiovascular: Regular Rate, Regular Rhythm GI/Abdominal Exam: Normal Bowel Sounds, Soft, Non-Tender, No Organomegaly, No Distention (Female) Exam: Normal Bimanual Exam Back Exam: Normal Inspection Extremities: Normal Inspection, Normal Range of Motion, Non-Tender, No Pedal Edema, Normal Capillary Refill Peripheral Pulses: 2+: Radial (L), Radial (R), Posterior Tibial (L), Posterior Tibial (R), Dorsalis Pedis (L), Dorsalis Pedis (R) Skin: Warm, Dry, Intact Neurological: No New Focal Deficit Psy/Mental Status: Alert, Normal Affect, Normal Mood - Problem List & Annotations (1) COPD exacerbation SNOMED Code(s): 403268760348329 Code(s): J44.1 - CHRONIC OBSTRUCTIVE PULMONARY DISEASE W (ACUTE) EXACERBATION Status: Acute Priority: High Current Visit: Yes (2) Hypothyroid SNOMED Code(s): 25735353 Code(s): E03.9 - HYPOTHYROIDISM, UNSPECIFIED Status: Chronic Priority: Low Current Visit: No Qualifiers: Hypothyroidism type: unspecified Qualified Code(s): E03.9 - Hypothyroidism , unspecified (3) Polymyositis SNOMED Code(s): 04645714 Code(s): M33.20 - POLYMYOSITIS, ORGAN INVOLVEMENT UNSPECIFIED Status: Chronic Priority: Low Current Visit: No - Problem List Review Problem List Initiated/Reviewed/Updated: Yes - My Orders Last 24 Hours: My Active Orders 09/12/17 18:26 Communication Order [RC] ROUTINE 09/13/17 09:00 Pantoprazole [ProTONIX] 40 mg PO DAILY 09/13/17 09:46 Consult to Occupational Therapy [OT Evaluation and Treatment] [CONS] Routine 09/14/17 08:00 predniSONE 60 mg PO WITHBREAKFAST - Plan Plan:: 67 year old female admitted with COPD exacerbation and RUQ abdominal pain 1. HCAP: Improving, cont. leukocytosis this am 15,000's. On steroids. BC neg x 2days. Continue Levaquin day 6, Vancomycin and Zosyn day 4. Tachycardia continues to be improved with ativan in the evening. Tachy may have large anxiety component. . 2. COPD: Stable. Switch from IV Solumed today to prednisone 60 mg po q day today and IV protonix to po. 2. Polymyositis: Stable in remission. 3. Hypothyroidism: Stable. Continue [place] Thyroid VTE prophylaxis: Heparin Q12h GI prophylaxis: Protonix. Dispo: 1-2 days may need minimum of home health. See simple note of conversation with daughter.
[2017-09-13] MEDS: Levofloxacin/Dextrose 5%-Water 750 MG in Premix Bag 1 BAG IV SCH (16:07)
[2017-09-13] MEDS: LORazepam 2 MG/ML SDV IVPUSH PRN (21:19)
[2017-09-14] MEDS: Albuterol/Ipratropium 3.0-0.5 MG/3 ML Neb Soln NEB SCH ×6 (01:18→22:53)
[2017-09-14] MEDS: Piperacillin/Tazobactam 4.5 GM in Sodium Chloride 0.9% 100 ML IV SCH ×2 (02:55→10:39)
[2017-09-14 06:37] LABS: CHLORIDE,CL 104 mmol/L (98-110); SODIUM,NA 140 mmol/L (136-146)
[2017-09-14] MEDS: Insulin Aspart 100 Units/ML 3 ML Pen SUBCUT SCH ×3 (06:46→17:10)
[2017-09-14] MEDS ORDERED: Potassium Chloride 20 MEQ Tab.ER PO ONE (08:21)
[2017-09-14] MEDS: Thyroid 60 MG Tab PO SCH (08:53)
[2017-09-14] MEDS: Pantoprazole 40 MG Tab.CR PO SCH (08:53)
[2017-09-14] MEDS: predniSONE 10 MG Tab PO SCH (08:53)
[2017-09-14] MEDS: Nicotine 21 MG/24 Hr Patch TRDERM SCH (08:59)
[2017-09-14] MEDS: Fluticasone Propionate Nasal Spray 16 GM Bottle NASBOTH SCH (09:01)
[2017-09-14] MEDS: Tiotropium Inhaler 18 MCG Inhalation Powder Cap Kit of 5 INH SCH ×2 (09:12→21:22)
[2017-09-14] MEDS ORDERED: Magnesium Sulfate/Water 4 GM in Premix Bag 1 BAG IV ONE (10:31)
[2017-09-14] MEDS: Amoxicillin/Clavulanate K 875-125 MG Tab PO SCH ×2 (10:39→21:21)
--- NOTE | 2017-09-14 10:42 | PCM.PN ---
- General Info Date of Service: 09/14/17 Admission Dx/Problem (Free Text): Admission Diagnosis/Problem Admission Diagnosis/Problem COPD, Moderate chronic obstructive pulmonary disease, HCAP Subjective Update: Feeling better this morning. Feels tired and wants a nap. Remains on 2 L NC at this time mid 90s. SOB has improved but continues some with activity. No chest pain. Coughing some phlegm up, no hemoptysis. Functional Status: Reports: Pain Controlled, Tolerating Diet, Ambulating, Urinating - Review of Systems General: Reports: Fatigue, Malaise. Denies: Fever Pulmonary: Reports: Shortness of Breath (intermittent, and with activity), Cough , Sputum. Denies: Hemoptysis, Wheezing Cardiovascular: Reports: No Symptoms. Denies: Chest Pain, Palpitations Gastrointestinal: Reports: No Symptoms. Denies: Abdominal Pain, Nausea, Vomiting Genitourinary: Reports: No Symptoms. Denies: Dysuria, Frequency, Burning Neurological: Reports: No Symptoms. Denies: Confusion Psychiatric: Reports: No Symptoms. Denies: Confusion - Patient Data Vitals - Most Recent: Last Vital Signs Temp 97.7 F 09/14/17 08:00 Pulse 99 09/14/17 08:00 Resp 22 H 09/14/17 08:00 BP 142/75 H 09/14/17 08:00 Pulse Ox 94 L 09/14/17 08:00 Weight - Most Recent: 68.9 kg I&O - Last 24 Hours: Intake & Output 09/13/17 09/14/17 09/14/17 22:59 06:59 14:59 Intake Total 1360 600 Output Total 650 1850 Balance 710 -1250 Lab Results Last 24 Hours: Laboratory Results - last 24 hr 09/13/17 09/13/17 09/14/17 Range/Units 11:22 17:06 06:00 WBC 12.06 H (4.0-11.0) K/uL RBC 3.50 L (4.30-5.90) M/uL Hgb 9.7 L (12.0-16.0) g/dL Hct 30.2 L (36.0-46.0) % MCV 86.3 (80.0-98.0) fL MCH 27.7 (27.0-32.0) pg MCHC 32.1 (31.0-37.0) g/dL RDW Std Deviation 47.6 (28.0-62.0) fl RDW Coeff of Doris 15 (11.0-15.0) % Plt Count 318 (150-400) K/uL MPV 9.10 (7.40-12.00) fL Add Manual Diff YES Neutrophils % (Manual) 69 (48.0-80.0) % Band Neutrophils % 3 % Lymphocytes % (Manual) 24 (16.0-40.0) % Monocytes % (Manual) 4 (0.0-15.0) % Nucleated RBC % 0.0 /100WBC Absolute Seg Neuts 8.3 H (1.4-5.7) Band Neutrophils # 0.4 Lymphocytes # (Manual) 2.9 H (0.6-2.4) Monocytes # (Manual) 0.5 (0.0-0.8) Nucleated RBCs # 0 K/uL Sodium (136-146) mmol/L Potassium (3.5-5.1) mmol/L Chloride (98-110) mmol/L Carbon Dioxide (21-31) mmol/L BUN (6.0-23.0) mg/dL Creatinine (0.6-1.5) mg/dL Est Cr Clr Drug Dosing mL/min Estimated GFR (MDRD) ml/min Glucose (60-110) mg/dL POC Glucose 241 H 217 H (60-110) mg/dL Calcium (8.8-10.8) mg/dL Magnesium (1.5-2.3) mEq/L Total Bilirubin (0.1-1.5) mg/dL AST (5-40) IU/L ALT (8-54) IU/L Alkaline Phosphatase (40-150) Total Protein (6.0-8.0) g/dL Albumin (3.4-4.8) g/dL Globulin (2.0-3.5) g/dL Albumin/Globulin Ratio (1.3-2.8) 09/14/17 09/14/17 09/14/17 Range/Units 06:00 06:18 06:24 WBC (4.0-11.0) K/uL RBC (4.30-5.90) M/uL Hgb (12.0-16.0) g/dL Hct (36.0-46.0) % MCV (80.0-98.0) fL MCH (27.0-32.0) pg MCHC (31.0-37.0) g/dL RDW Std Deviation (28.0-62.0) fl RDW Coeff of Doris (11.0-15.0) % Plt Count (150-400) K/uL MPV (7.40-12.00) fL Add Manual Diff Neutrophils % (Manual) (48.0-80.0) % Band Neutrophils % % Lymphocytes % (Manual) (16.0-40.0) % Monocytes % (Manual) (0.0-15.0) % Nucleated RBC % /100WBC Absolute Seg Neuts (1.4-5.7) Band Neutrophils # Lymphocytes # (Manual) (0.6-2.4) Monocytes # (Manual) (0.0-0.8) Nucleated RBCs # K/uL Sodium 140 (136-146) mmol/L Potassium 3.1 L (3.5-5.1) mmol/L Chloride 104 (98-110) mmol/L Carbon Dioxide 28 (21-31) mmol/L BUN 13 (6.0-23.0) mg/dL Creatinine 0.8 (0.6-1.5) mg/dL Est Cr Clr Drug Dosing 61.40 mL/min Estimated GFR (MDRD) > 60.0 ml/min Glucose 88 (60-110) mg/dL POC Glucose 85 (60-110) mg/dL Calcium 7.7 L (8.8-10.8) mg/dL Magnesium 1.4 L (1.5-2.3) mEq/L Total Bilirubin 0.5 (0.1-1.5) mg/dL AST 9 (5-40) IU/L ALT 7 L (8-54) IU/L Alkaline Phosphatase 46 (40-150) Total Protein 5.1 L (6.0-8.0) g/dL Albumin 2.9 L (3.4-4.8) g/dL Globulin 2.2 (2.0-3.5) g/dL Albumin/Globulin Ratio 1.3 (1.3-2.8) Vikash Results Last 24 Hours: Microbiology 09/10/17 14:32 Aerobic Blood Culture - Preliminary Blood - Venous - Lab Draw NO GROWTH AFTER 3 DAYS Anaerobic Blood Culture - Preliminary NO GROWTH AFTER 3 DAYS 09/10/17 14:24 Aerobic Blood Culture - Preliminary Blood - Venous NO GROWTH AFTER 3 DAYS Anaerobic Blood Culture - Preliminary NO GROWTH AFTER 3 DAYS 09/11/17 11:10 Gram Stain - Preliminary Sputum - Expectorated Sputum Culture - Final YEAST Normal Respiratory Lois Med Orders - Current: Current Medications Acetaminophen (Tylenol) 650 mg PO Q6H PRN PRN Reason: Pain Last Admin: 09/06/17 04:29 Dose: 650 mg Albuterol/Ipratropium (Duoneb 3.0-0.5 Mg/3 Ml) 3 ml NEB Q4HRRT [facility] Last Admin: 09/14/17 09:33 Dose: 3 ml Amoxicillin/Clavulanate Potassium (Augmentin 875 Mg/125 Mg) 1 tab PO Q12HR [facility] Last Admin: 09/14/17 10:39 Dose: 1 tab Fluticasone Propionate (Flonase) 0 gm NASBOTH DAILY [facility] Last Admin: 09/14/17 09:01 Dose: 2 spray Magnesium Sulfate 4 gm/ Premix 100 mls @ 50 mls/hr IV ONETIME ONE Stop: 09/14/17 12:30 Last Admin: 09/14/17 10:40 Dose: 50 mls/hr Insulin Aspart (Novolog) 0 unit SUBCUT TIDAC [facility] PRN Reason: Protocol Last Admin: 09/14/17 06:46 Dose: Not Given Lorazepam (Ativan) 1 mg IVPUSH BEDTIME PRN PRN Reason: Insomnia Last Admin: 09/13/17 21:19 Dose: 1 mg Meclizine HCl (Antivert) 25 mg PO TID PRN PRN Reason: Dizziness Morphine Sulfate (Morphine) 2 mg IVPUSH Q4H PRN PRN Reason: air hunger,SOB hyperventilatio Last Admin: 09/10/17 16:38 Dose: 2 mg Nicotine (Habitrol) 21 mg TRDERM DAILY [facility] Last Admin: 09/14/17 08:59 Dose: 21 mg Pantoprazole Sodium (Protonix) 40 mg PO DAILY [facility] Last Admin: 09/14/17 08:53 Dose: 40 mg Prednisone (Prednisone) 60 mg PO WITHBREAKFAST [facility] Last Admin: 09/14/17 08:53 Dose: 60 mg Sodium Chloride (Saline Flush) 2.5 ml FLUSH ASDIRECTED [facility] Sodium Chloride ([place] Nasal [place]) 0 ml ЕКАТЕРИНА QID PRN PRN Reason: sinus congestion Last Admin: 09/12/17 07:57 Dose: 2 sprays Thyroid ([place] Thyroid) 30 mg PO DAILY [facility] Last Admin: 09/14/17 08:53 Dose: 30 mg Tiotropium [place] (Spiriva Handihaler) 1 mcg INH BID [facility] Last Admin: 09/14/17 09:12 Dose: 1 inhalation Discontinued Medications Albuterol/Ipratropium (Duoneb 3.0-0.5 Mg/3 Ml) 3 ml NEB ONETIME ONE Stop: 09/05/17 22:34 Last Admin: 09/05/17 22:52 Dose: 3 ml Albuterol/Ipratropium (Duoneb 3.0-0.5 Mg/3 Ml) 3 ml NEB Q4HRRT [facility] Last Admin: 09/06/17 05:56 Dose: 3 ml Albuterol/Ipratropium (Duoneb 3.0-0.5 Mg/3 Ml) 3 ml NEB Q6HRRT [facility] Last Admin: 09/07/17 12:26 Dose: 3 ml Calcium Carbonate/Glycine (Tums) 1,000 mg PO ONETIME ONE Stop: 09/12/17 09:54 Last Admin: 09/12/17 10:24 Dose: 1,000 mg Sodium Chloride (Normal Saline) 1,000 mls @ 30 mls/hr IV STAT ONE Stop: 09/07/17 07:51 Last Admin: 09/05/17 22:52 Dose: 30 mls/hr Metronidazole 500 mg/ Premix 100 mls @ 100 mls/hr IV Q6H [facility] Last Admin: 09/10/17 08:33 Dose: 100 mls/hr Sodium Chloride (Sodium Chloride 0.45%) 1,000 mls @ 100 mls/hr IV ASDIRECTED [facility] Last Infusion: 09/07/17 00:45 Dose: 100 mls/hr Levofloxacin/Dextrose 750 mg/ (Premix) 150 mls @ 100 mls/hr IV ONETIME ONE Stop: 09/06/17 18:21 Last Admin: 09/06/17 17:09 Dose: 100 mls/hr Sodium Chloride (Normal Saline) 1,000 mls @ 999 mls/hr IV ASDIRECTED [facility] Levofloxacin/Dextrose 750 mg/ (Premix) 150 mls @ 100 mls/hr IV Q24H [facility] Last Admin: 09/13/17 16:07 Dose: 100 mls/hr Sodium Chloride (Normal Saline) 500 mls @ 125 mls/hr IV ONETIME ONE Stop: 09/09/17 12:29 Last Admin: 09/09/17 09:29 Dose: 125 mls/hr Piperacillin Sod/Tazobactam (Sod 4.5 gm/ Sodium Chloride) 100 mls @ 100 mls/hr IV Q6H [facility] Last Admin: 09/14/17 10:39 Dose: Not Given Sodium Chloride (Normal Saline) 1,000 mls @ 100 mls/hr IV ASDIRECTED [facility] Last Infusion: 09/11/17 09:14 Dose: 75 mls/hr Vancomycin HCl 1 gm/ Sodium (Chloride) 250 mls @ 250 mls/hr IV Q12H [facility] Last Admin: 09/12/17 00:57 Dose: Not Given Sodium Chloride (Normal Saline) 1,000 mls @ 75 mls/hr IV ASDIRECTED [facility] Last Admin: 09/12/17 08:25 Dose: 75 mls/hr Vancomycin HCl 1,250 mg/ (Dextrose/Water) 250 mls @ 166.667 mls/hr IV Q12H [facility] Last Admin: 09/12/17 00:58 Dose: Not Given Vancomycin HCl 1,250 mg/ (Sodium Chloride) 250 mls @ 166.667 mls/hr IV Q12H [facility] Last Admin: 09/12/17 01:00 Dose: 166.667 mls/hr Vancomycin HCl 1 gm/ Sodium (Chloride) 250 mls @ 166.667 mls/hr IV Q8H [facility] Last Admin: 09/14/17 09:00 Dose: 166.667 mls/hr Magnesium Sulfate 4 gm/ Premix 100 mls @ 25 mls/hr IV ONETIME ONE Stop: 09/12/17 13:53 Last Admin: 09/12/17 10:35 Dose: 25 mls/hr Levofloxacin (Levaquin) 750 mg PO DAILY [facility] Methylprednisolone Sodium Succinate (Solu-Medrol) 125 mg IVPUSH ONETIME ONE Stop: 09/05/17 22:34 Last Admin: 09/05/17 22:51 Dose: 125 mg Methylprednisolone Sodium Succinate (Solu-Medrol) 60 mg IVPUSH Q6H [facility] Last Admin: 09/08/17 03:53 Dose: 60 mg Methylprednisolone Sodium Succinate (Solu-Medrol) 60 mg IVPUSH Q12H [facility] Methylprednisolone Sodium Succinate (Solu-Medrol) 40 mg IVPUSH Q12H [facility] Last Admin: 09/09/17 06:06 Dose: 40 mg Methylprednisolone Sodium Succinate (Solu-Medrol) 40 mg IVPUSH Q8H [facility] Last Admin: 09/13/17 07:44 Dose: 40 mg Pantoprazole Sodium (Protonix Iv) 40 mg IVPUSH Q12H [facility] Last Admin: 09/13/17 02:25 Dose: 40 mg Potassium Chloride (Klor-Con M20) 40 meq PO ONETIME ONE Stop: 09/10/17 07:50 Last Admin: 09/10/17 08:24 Dose: 40 meq Potassium Chloride (Klor-Con M20) 40 meq PO ONETIME ONE Stop: 09/14/17 08:22 Last Admin: 09/14/17 08:53 Dose: 40 meq Prednisone (Prednisone) 40 mg PO WITHBREAKFAST [facility] Last Admin: 09/10/17 08:25 Dose: 40 mg Thyroid ([place] Thyroid) 30 mg PO DAILY [facility] Last Admin: 09/06/17 13:58 Dose: Not Given Vancomycin HCl (Pharmacy To Dose - Vancomycin) 1 dose .XX ASDIRECTED [facility] - Exam General: Alert, Oriented, Cooperative, No Acute Distress Neck: Supple Lungs: Clear to Auscultation, Normal Respiratory Effort. No: Crackles, Rhonchi , Wheezing Cardiovascular: Regular Rate, Regular Rhythm, No Murmurs Extremities: Normal Inspection, Normal Range of Motion, Non-Tender, Normal Capillary Refill, Pedal Edema (scant to +1 dependent edema) Neurological: No New Focal Deficit Psy/Mental Status: Alert, Normal Affect, Normal Mood - Problem List & Annotations (1) Hospital acquired PNA SNOMED Code(s): 738992584 Code(s): J18.9 - PNEUMONIA, UNSPECIFIED ORGANISM Status: Acute Current Visit: Yes (2) COPD exacerbation SNOMED Code(s): 691990186532467 Code(s): J44.1 - CHRONIC OBSTRUCTIVE PULMONARY DISEASE W (ACUTE) EXACERBATION Status: Acute Priority: High Current Visit: Yes (3) Hypoxia SNOMED Code(s): 684469987 Code(s): R09.02 - HYPOXEMIA Status: Acute Current Visit: Yes (4) Respiratory distress SNOMED Code(s): 803518255 Code(s): R06.03 - ACUTE RESPIRATORY DISTRESS Status: Resolved Current Visit: Yes (5) Hyperventilation SNOMED Code(s): 66270275 Code(s): R06.4 - HYPERVENTILATION Status: Resolved Current Visit: Yes (6) Acute respiratory alkalosis SNOMED Code(s): 90209549 Code(s): E87.3 - ALKALOSIS Status: Resolved Current Visit: Yes (7) Cholecystitis SNOMED Code(s): 11193064 Code(s): K81.9 - CHOLECYSTITIS, UNSPECIFIED Status: Acute Current Visit: Yes (8) Hypothyroid SNOMED Code(s): 43582700 Code(s): E03.9 - HYPOTHYROIDISM, UNSPECIFIED Status: Chronic Priority: Low Current Visit: No Qualifiers: Hypothyroidism type: unspecified Qualified Code(s): E03.9 - Hypothyroidism , unspecified (9) Polymyositis SNOMED Code(s): 85678627 Code(s): M33.20 - POLYMYOSITIS, ORGAN INVOLVEMENT UNSPECIFIED Status: Chronic Priority: Low Current Visit: No (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 SNOMED Code(s): 35017040 Code(s): QFS3948 - Status: Chronic Current Visit: Yes (11) COPD (chronic obstructive pulmonary disease) SNOMED Code(s): 87115375 Code(s): J44.9 - CHRONIC OBSTRUCTIVE PULMONARY DISEASE, UNSPECIFIED Status : Chronic Current Visit: No Qualifiers: COPD type: chronic bronchitis Chronic bronchitis type: unspecified Qualified Code(s): J42 - Unspecified chronic bronchitis - Problem List Review Problem List Initiated/Reviewed/Updated: Yes - My Orders Last 24 Hours: My Active Orders 09/14/17 10:31 Magnesium Sulfate/Water [Magnesium Sulfate 4 GM in Water 100 ML] 4 gm Premix Bag 1 bag IV ONETIME 09/14/17 10:45 Amoxicillin/Clavulanate K [Augmentin 875 MG/125 MG] 1 tab PO Q12HR - Plan Plan:: 67 year old female admitted with COPD exacerbation and RUQ abdominal pain 1. HCAP: Improving, cont. leukocytosis 12,000 this am. IV Solumedrol discontinued and Prednisone 60 mg PO started today. BC neg x 2days. Will discontinue IV antibiotics and transition to Augmentin BID. WIll monitor response today and plan for discharge in am. Will likely need oxygen, repeat Room air challenge today. Replacing K+ and Mg due to hypokalemia and Hypomagnesmia. 2. COPD: Stable. Prednisone 60 mg po q day today. Will encourage pulmonary rehab upon discharge. 3. Deconditioning: Likely from stay in hospital. PT/OT consulted. [facility] home with Home Health to be planned. Will monitor today. 4. Polymyositis: Stable in remission. 5. Hypothyroidism: Stable. Continue [place] Thyroid VTE prophylaxis: Heparin Q12h GI prophylaxis: Protonix. Dispo: 1-2 days may need minimum of home health. See simple note of conversation with daughter.
[2017-09-14] MEDS: Acetaminophen 325 MG Tab PO PRN (10:53)
[2017-09-14] MEDS: Morphine 2 MG/ML Syringe IVPUSH PRN (12:44)
[2017-09-14] MEDS: Diphenhydramine/Lidocaine/Nystatin Suspension 237 ML Bottle PO SCH ×2 (15:35→18:07)
[2017-09-14] MEDS: LORazepam 2 MG/ML SDV IVPUSH PRN (22:48)
[2017-09-15] MEDS: Albuterol/Ipratropium 3.0-0.5 MG/3 ML Neb Soln NEB SCH ×4 (02:58→14:25)
[2017-09-15] MEDS: Diphenhydramine/Lidocaine/Nystatin Suspension 237 ML Bottle PO SCH ×3 (04:02→11:59)
[2017-09-15 06:02] LABS: CHLORIDE,CL 101 mmol/L (98-110); SODIUM,NA 138 mmol/L (136-146)
[2017-09-15] MEDS: Insulin Aspart 100 Units/ML 3 ML Pen SUBCUT SCH ×3 (07:31→17:38)
[2017-09-15] MEDS: predniSONE 10 MG Tab PO SCH (08:38)
[2017-09-15] MEDS: Thyroid 60 MG Tab PO SCH (08:39)
[2017-09-15] MEDS: Amoxicillin/Clavulanate K 875-125 MG Tab PO SCH (08:39)
[2017-09-15] MEDS: Pantoprazole 40 MG Tab.CR PO SCH (08:40)
[2017-09-15] MEDS: Nicotine 21 MG/24 Hr Patch TRDERM SCH (08:42)
[2017-09-15] MEDS: Fluticasone Propionate Nasal Spray 16 GM Bottle NASBOTH SCH (08:43)
--- NOTE | 2017-09-15 08:52 | CR ---
EXAMINATION: Two-view chest (PA and Lateral views). HISTORY: COPD. FINDINGS: The trachea is midline. The cardiomediastinal silhouette is within normal limits. Trace bilateral ple ural effusions are noted with adjacent atelectasis. Chronic interstitial prominence. Mild aortic calc ifications. Osseous structures appear unremarkable. IMPRESSION: Trace bilateral pleural effusions.
[2017-09-15] MEDS: Tiotropium Inhaler 18 MCG Inhalation Powder Cap Kit of 5 INH SCH (10:00)
[2017-09-15] MEDS ORDERED: Acidophilus with Citrus Pectin Tab PO SCH (10:15)
--- NOTE | 2017-09-15 11:39 | PCM.DCSUM1 ---
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 She also c/o of abdominal pain across the belly , epigastric and RUQ . She has cough productive of green phlegm. Did not have a COPD exac for the past 1 y and 1/2, she is not oxygen depended at home. In the ED, leukocytosis noted 14,140, BMP WNL UA negative BC obtained. CXR negative. She was treated with Solumedrol, Duonebs and Levaquin. She was admited for COPD exacerbation and possible pneumonia. - Discharge Data Discharge Date: 09/15/17 Discharge Disposition: Home, Self-Care 01 Condition: Good - Discharge Diagnosis/Problem(s) (1) Hospital acquired PNA SNOMED Code(s): 724203152 ICD Code: J18.9 - PNEUMONIA, UNSPECIFIED ORGANISM Status: Acute Current Visit: Yes (2) COPD exacerbation SNOMED Code(s): 280292205479341 ICD Code: J44.1 - CHRONIC OBSTRUCTIVE PULMONARY DISEASE W (ACUTE) EXACERBATION Status: Acute Priority: High Current Visit: Yes (3) Hypoxia SNOMED Code(s): 275122166 ICD Code: R09.02 - HYPOXEMIA Status: Acute Current Visit: Yes (4) Respiratory distress SNOMED Code(s): 812439052 ICD Code: R06.03 - ACUTE RESPIRATORY DISTRESS Status: Resolved Current Visit: Yes (5) Hyperventilation SNOMED Code(s): 44716724 ICD Code: R06.4 - HYPERVENTILATION Status: Resolved Current Visit: Yes (6) Acute respiratory alkalosis SNOMED Code(s): 78376673 ICD Code: E87.3 - ALKALOSIS Status: Resolved Current Visit: Yes (7) Cholecystitis SNOMED Code(s): 10302875 ICD Code: K81.9 - CHOLECYSTITIS, UNSPECIFIED Status: Acute Current Visit : Yes (8) Hypothyroid SNOMED Code(s): 55170996 ICD Code: E03.9 - HYPOTHYROIDISM, UNSPECIFIED Status: Chronic Priority: Low Current Visit: No Qualifiers: Hypothyroidism type: unspecified Qualified Code(s): E03.9 - Hypothyroidism , unspecified (9) Polymyositis SNOMED Code(s): 53853613 ICD Code: M33.20 - POLYMYOSITIS, ORGAN INVOLVEMENT UNSPECIFIED Status: Chronic Priority: Low Current Visit: No (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 SNOMED Code(s): 75624087 ICD Code: MTR9306 - Status: Chronic Current Visit: Yes (11) COPD (chronic obstructive pulmonary disease) SNOMED Code(s): 19877016 ICD Code: J44.9 - CHRONIC OBSTRUCTIVE PULMONARY DISEASE, UNSPECIFIED Status : Chronic Current Visit: No Qualifiers: COPD type: chronic bronchitis Chronic bronchitis type: unspecified Qualified Code(s): J42 - Unspecified chronic bronchitis (12) Dyspnea SNOMED Code(s): 055092299 ICD Code: R06.00 - DYSPNEA, UNSPECIFIED Status: Acute Current Visit: Yes - Patient Summary/Data Consults: Consultations 09/07/17 10:28 Consult to Physician [CONS] Routine 09/12/17 10:23 PT Evaluation and Treatment [CONS] Routine 09/13/17 09:46 Consult to Occupational Therapy [OT Evaluation and Treatment] [CONS] Routine 09/13/17 15:19 Consult to Home Health [CONS] Routine - Patient Instructions Diet: Heart Healthy Diet, Regular Diet as Tolerated Activity: As Tolerated, Cough & Deep Breathe, No Strenuous Activities, Rest and Relax Today Showering/Bathing: May Shower Notify Provider of: Fever, Increased Pain, Swelling and Redness, Drainage, Nausea and/or Vomiting - Discharge Plan Home Medications: Home Meds Tiotropium [Spiriva HandiHaler] 18 mcg IH DAILY 06/15/14 [History] Thyroid [Heath Thyroid] 30 mg PO DAILY 01/02/15 [History] predniSONE [Prednisone] 10 mg PO DAILY 11/23/15 [History] Meclizine [Antivert] 25 mg PO TID PRN #12 tablet 05/21/17 [Rx] Levofloxacin 750 mg PO DAILY 09/05/17 [History] Fluticasone Propionate 2 sprays NASBOTH DAILY 09/06/17 [History] Referrals: [facility] [Outside] Bailee Oreilly NP [Nurse Practitioner] - 09/16/17 1:30 pm Juan Rabago MD [Consulting Physician] - 12/10/17 1:30 pm - Discharge Summary/Plan Comment DC Time >30 min.: No Discharge Summary/Plan Comment: Admission Diagnoses: COPD exacerbation Possible pneumonia Abdominal pain Tobacco use Hx Severe COPD, emphysema Hx polymyositits, chronic/daily Prednisone use Discharge Diagnoses Pneumonia-resolving Hypoxia Oral thrush COPD exacerbation- resolved Abdominal pain Severe COPD/emphysema FEV1/FVC 36 Hx polymyositits, chronic/daily Prednisone use Yvonne was admitted and initially treated with IV Levaquin and High dose Solumedrol for COPD excaerbation. She initially showed improvement, leukocytosis elevated slightly, likely in reaction to steroids. She then started feeling worse and appeared lethargic on 09/09, she was transferred to ICU and given broad spectrum IV antibiotics, including Levaquin, Vancomycin, and Zosyn due to worsening infiltrates bilaterally. ABG was obtained which showed no CO2 retention, but respiratory alkalosis likely secondary to hyperventilation. SHe was continued on IV fluids and broad spectrum IV antibiotics over the weekend and continued to improve. BC and sputum culture negative. She has been stable on lower steroid PO dosing today. She was switched to PO Augmentin yesterday and continues to improve today, leukocytosis 11,460. BMP WNL. She has needed continued oxygen support at 2 L NC especially with activity. At rest she was noted to be 90% with no oxygen. With activity on RA she dropped to 85% and with oxygen at 2 L NC with activity she was 93%. She likely will need oxygen for approximately 1 month after acute illness on top of her already very severe COPD/ephysema with FEV1/FVC 36%. She will be sent home with Prednisone taper due to high dose steroid use in hospital and to lower risk of adrenal crisis. She will then resume her daily 10 mg of Prednisone. She will be sent home with 3 more days of Augmentin which will complete ad adequate course of antibiotics including her time in the hospital. Regarding abdominal pain. This was worked up very thoroughly, with abdominal CT which was negative, LUQ US showed possible gallbladder stones or possible polyps. HIDA with out EF was negative. She continues to have abdominal pain, which changes location throughout the day. She reports she was diagnosed with a spastic colon years ago when she had similar pain. She otherwise is tolerating her diet and has no N/V. She is to follow up with PCP in 1 week. I have spoke thoroughly with patient regarding COPD and smoking cessation. I have also educated her to monitor for diarrhea, which may be secondary to antibiotics she had been on while here. She will be going home with Home Health. She is in needed of halfway assessment due to new need a home oxygen and monitoring of vital signs and medication administration. She would also benefit from PT/OT evaluation and treatment due to deconditioning from length of hospital stay. She currently will be homebound due to the need of a caregiver or family member to assist her in leaving the house and driving her around. Dr. Graham her PCP, will follow plan of care. I would recommended upon further improvement that she be referred to Pulmonary rehabilitation. I have spoken with her PCP regarding admission/discharge treatment plan. She is to return to the ED or clinic if concerns should arise. During her stay I have spoken with her Daughter Karely and kept her in the loop. Their family's plan is to move Yvonne out to [place] with Karely and her older son. I encouraged them to allow Yvonne time to heal 1-3 weeks before making a large much such as that. They are also looking into [facility] [place] for further assistance at home. - General Info Date of Service: 09/15/17 Admission Dx/Problem (Free Text: Admission Diagnosis/Problem Admission Diagnosis/Problem COPD, Moderate chronic obstructive pulmonary disease, HCAP Subjective Update: Doing "better" this morning. Breathing continues to improve. Still gets SOB with activity, but this is improving as well. She denies chest pain. Cough is better and abdominal pain is about her normal. eating and tolerating fluids well. - Review of Systems HEENT: Reports: Other (thrush to tongue) Pulmonary: Reports: Shortness of Breath (intermittently and with activity), Cough. Denies: Wheezing Cardiovascular: Reports: No Symptoms. Denies: Chest Pain, Palpitations, Edema Genitourinary: Reports: No Symptoms. Denies: Dysuria, Frequency, Burning Neurological: Reports: No Symptoms Psychiatric: Reports: No Symptoms - Patient Data Vitals - Most Recent: Last Vital Signs Temp 98.6 F 09/15/17 08:00 Pulse 102 H 09/15/17 08:00 Resp 20 09/15/17 08:00 BP 123/55 L 09/15/17 08:00 Pulse Ox 97 09/15/17 08:00 Weight - Most Recent: 69.5 kg I&O - Last 24 hours: Intake & Output 09/14/17 09/15/17 09/15/17 22:59 06:59 14:59 Intake Total 1280 480 Output Total 1300 600 Balance -20 -120 Lab Results - Last 24 hrs: Laboratory Results - last 24 hr 09/14/17 09/14/17 09/15/17 Range/Units 11:52 16:46 04:57 WBC 11.46 H (4.0-11.0) K/uL RBC 3.63 L (4.30-5.90) M/uL Hgb 10.2 L (12.0-16.0) g/dL Hct 31.3 L (36.0-46.0) % MCV 86.2 (80.0-98.0) fL MCH 28.1 (27.0-32.0) pg MCHC 32.6 (31.0-37.0) g/dL RDW Std Deviation 47.4 (28.0-62.0) fl RDW Coeff of Odris 15 (11.0-15.0) % Plt Count 330 (150-400) K/uL MPV 9.20 (7.40-12.00) fL Add Manual Diff YES Neutrophils % (Manual) 71 (48.0-80.0) % Band Neutrophils % 1 % Lymphocytes % (Manual) 21 (16.0-40.0) % Monocytes % (Manual) 7 (0.0-15.0) % Nucleated RBC % 0.0 /100WBC Absolute Seg Neuts 8.1 H (1.4-5.7) Band Neutrophils # 0.1 Lymphocytes # (Manual) 2.4 (0.6-2.4) Monocytes # (Manual) 0.8 (0.0-0.8) Nucleated RBCs # 0 K/uL Sodium (136-146) mmol/L Potassium (3.5-5.1) mmol/L Chloride (98-110) mmol/L Carbon Dioxide (21-31) mmol/L BUN (6.0-23.0) mg/dL Creatinine (0.6-1.5) mg/dL Est Cr Clr Drug Dosing mL/min Estimated GFR (MDRD) ml/min Glucose (60-110) mg/dL POC Glucose 101 193 H (60-110) mg/dL Calcium (8.8-10.8) mg/dL Magnesium (1.5-2.3) mEq/L Total Bilirubin (0.1-1.5) mg/dL AST (5-40) IU/L ALT (8-54) IU/L Alkaline Phosphatase (40-150) Total Protein (6.0-8.0) g/dL Albumin (3.4-4.8) g/dL Globulin (2.0-3.5) g/dL Albumin/Globulin Ratio 09/15/17 09/15/17 Range/Units 04:57 06:15 WBC (4.0-11.0) K/uL RBC (4.30-5.90) M/uL Hgb (12.0-16.0) g/dL Hct (36.0-46.0) % MCV (80.0-98.0) fL MCH (27.0-32.0) pg MCHC (31.0-37.0) g/dL RDW Std Deviation (28.0-62.0) fl RDW Coeff of Doris (11.0-15.0) % Plt Count (150-400) K/uL MPV (7.40-12.00) fL Add Manual Diff Neutrophils % (Manual) (48.0-80.0) % Band Neutrophils % % Lymphocytes % (Manual) (16.0-40.0) % Monocytes % (Manual) (0.0-15.0) % Nucleated RBC % /100WBC Absolute Seg Neuts (1.4-5.7) Band Neutrophils # Lymphocytes # (Manual) (0.6-2.4) Monocytes # (Manual) (0.0-0.8) Nucleated RBCs # K/uL Sodium 138 (136-146) mmol/L Potassium 3.5 (3.5-5.1) mmol/L Chloride 101 (98-110) mmol/L Carbon Dioxide 30 (21-31) mmol/L BUN 12 (6.0-23.0) mg/dL Creatinine 0.7 (0.6-1.5) mg/dL Est Cr Clr Drug Dosing 70.06 mL/min Estimated GFR (MDRD) > 60.0 ml/min Glucose 96 (60-110) mg/dL POC Glucose 101 (60-110) mg/dL Calcium 8.1 L (8.8-10.8) mg/dL Magnesium 1.9 (1.5-2.3) mEq/L Total Bilirubin 0.5 (0.1-1.5) mg/dL AST 10 (5-40) IU/L ALT 8 (8-54) IU/L Alkaline Phosphatase 53 (40-150) Total Protein 5.1 L (6.0-8.0) g/dL Albumin 3.1 L (3.4-4.8) g/dL Globulin 2.0 (2.0-3.5) g/dL Albumin/Globulin Ratio 1.55 GORDO Results - Last 24 hrs: Microbiology 09/11/17 11:10 Gram Stain - Final Sputum - Expectorated Sputum Culture - Final YEAST Normal Respiratory Lois 09/10/17 14:32 Aerobic Blood Culture - Preliminary Blood - Venous - Lab Draw NO GROWTH AFTER 4 DAYS Anaerobic Blood Culture - Preliminary NO GROWTH AFTER 4 DAYS 09/10/17 14:24 Aerobic Blood Culture - Preliminary Blood - Venous NO GROWTH AFTER 4 DAYS Anaerobic Blood Culture - Preliminary NO GROWTH AFTER 4 DAYS Med Orders - Current: Current Medications Acetaminophen (Tylenol) 650 mg PO Q6H PRN PRN Reason: Pain Last Admin: 09/14/17 10:53 Dose: 650 mg Acidophilus/Pectin (Acidophilus/Pectin, [place]) 1 tab PO DAILY [facility] Last Admin: 09/15/17 10:35 Dose: 1 tab Albuterol/Ipratropium (Duoneb 3.0-0.5 Mg/3 Ml) 3 ml NEB Q4HRRT [facility] Last Admin: 09/15/17 10:02 Dose: 3 ml Amoxicillin/Clavulanate Potassium (Augmentin 875 Mg/125 Mg) 1 tab PO Q12HR [facility] Last Admin: 09/15/17 08:39 Dose: 1 tab Diphenhydramine/Nystatin/Lidocaine (Magic Mouthwash) 10 ml PO QID [facility] Last Admin: 09/15/17 07:30 Dose: Not Given Fluticasone Propionate (Flonase) 0 gm NASBOTH DAILY [facility] Last Admin: 09/15/17 08:43 Dose: 2 spray Insulin Aspart (Novolog) 0 unit SUBCUT TIDAC [facility] PRN Reason: Protocol Last Admin: 09/15/17 07:31 Dose: Not Given Lorazepam (Ativan) 1 mg IVPUSH BEDTIME PRN PRN Reason: Insomnia Last Admin: 09/14/17 22:48 Dose: 1 mg Meclizine HCl (Antivert) 25 mg PO TID PRN PRN Reason: Dizziness Morphine Sulfate (Morphine) 2 mg IVPUSH Q4H PRN PRN Reason: air hunger,SOB hyperventilatio Last Admin: 09/14/17 12:44 Dose: 2 mg Nicotine (Habitrol) 21 mg TRDERM DAILY [facility] Last Admin: 09/15/17 08:42 Dose: 21 mg Pantoprazole Sodium (Protonix) 40 mg PO DAILY [facility] Last Admin: 09/15/17 08:40 Dose: 40 mg Prednisone (Prednisone) 60 mg PO WITHBREAKFAST [facility] Last Admin: 09/15/17 08:38 Dose: 60 mg Sodium Chloride (Saline Flush) 2.5 ml FLUSH ASDIRECTED [facility] Sodium Chloride ([place] Nasal [place]) 0 ml ЕКАТЕРИНА QID PRN PRN Reason: sinus congestion Last Admin: 09/12/17 07:57 Dose: 2 sprays Thyroid (Heath Thyroid) 30 mg PO DAILY [facility] Last Admin: 09/15/17 08:39 Dose: 30 mg Tiotropium [place] (Spiriva Handihaler) 1 mcg INH BID [facility] Last Admin: 09/15/17 10:00 Dose: 1 inhalation Discontinued Medications Albuterol/Ipratropium (Duoneb 3.0-0.5 Mg/3 Ml) 3 ml NEB ONETIME ONE Stop: 09/05/17 22:34 Last Admin: 09/05/17 22:52 Dose: 3 ml Albuterol/Ipratropium (Duoneb 3.0-0.5 Mg/3 Ml) 3 ml NEB Q4HRRT [facility] Last Admin: 09/06/17 05:56 Dose: 3 ml Albuterol/Ipratropium (Duoneb 3.0-0.5 Mg/3 Ml) 3 ml NEB Q6HRRT [facility] Last Admin: 09/07/17 12:26 Dose: 3 ml Calcium Carbonate/Glycine (Tums) 1,000 mg PO ONETIME ONE Stop: 09/12/17 09:54 Last Admin: 09/12/17 10:24 Dose: 1,000 mg Sodium Chloride (Normal Saline) 1,000 mls @ 30 mls/hr IV STAT ONE Stop: 09/07/17 07:51 Last Admin: 09/05/17 22:52 Dose: 30 mls/hr Metronidazole 500 mg/ Premix 100 mls @ 100 mls/hr IV Q6H [facility] Last Admin: 09/10/17 08:33 Dose: 100 mls/hr Sodium Chloride (Sodium Chloride 0.45%) 1,000 mls @ 100 mls/hr IV ASDIRECTED [facility] Last Infusion: 09/07/17 00:45 Dose: 100 mls/hr Levofloxacin/Dextrose 750 mg/ (Premix) 150 mls @ 100 mls/hr IV ONETIME ONE Stop: 09/06/17 18:21 Last Admin: 09/06/17 17:09 Dose: 100 mls/hr Sodium Chloride (Normal Saline) 1,000 mls @ 999 mls/hr IV ASDIRECTED [facility] Levofloxacin/Dextrose 750 mg/ (Premix) 150 mls @ 100 mls/hr IV Q24H [facility] Last Admin: 09/13/17 16:07 Dose: 100 mls/hr Sodium Chloride (Normal Saline) 500 mls @ 125 mls/hr IV ONETIME ONE Stop: 09/09/17 12:29 Last Admin: 09/09/17 09:29 Dose: 125 mls/hr Piperacillin Sod/Tazobactam (Sod 4.5 gm/ Sodium Chloride) 100 mls @ 100 mls/hr IV Q6H [facility] Last Admin: 09/14/17 10:39 Dose: Not Given Sodium Chloride (Normal Saline) 1,000 mls @ 100 mls/hr IV ASDIRECTED [facility] Last Infusion: 09/11/17 09:14 Dose: 75 mls/hr Vancomycin HCl 1 gm/ Sodium (Chloride) 250 mls @ 250 mls/hr IV Q12H [facility] Last Admin: 09/12/17 00:57 Dose: Not Given Sodium Chloride (Normal Saline) 1,000 mls @ 75 mls/hr IV ASDIRECTED [facility] Last Admin: 09/12/17 08:25 Dose: 75 mls/hr Vancomycin HCl 1,250 mg/ (Dextrose/Water) 250 mls @ 166.667 mls/hr IV Q12H [facility] Last Admin: 09/12/17 00:58 Dose: Not Given Vancomycin HCl 1,250 mg/ (Sodium Chloride) 250 mls @ 166.667 mls/hr IV Q12H [facility] Last Admin: 09/12/17 01:00 Dose: 166.667 mls/hr Vancomycin HCl 1 gm/ Sodium (Chloride) 250 mls @ 166.667 mls/hr IV Q8H [facility] Last Admin: 09/14/17 09:00 Dose: 166.667 mls/hr Magnesium Sulfate 4 gm/ Premix 100 mls @ 25 mls/hr IV ONETIME ONE Stop: 09/12/17 13:53 Last Admin: 09/12/17 10:35 Dose: 25 mls/hr Magnesium Sulfate 4 gm/ Premix 100 mls @ 50 mls/hr IV ONETIME ONE Stop: 09/14/17 12:30 Last Admin: 09/14/17 10:40 Dose: 50 mls/hr Levofloxacin (Levaquin) 750 mg PO DAILY [facility] Methylprednisolone Sodium Succinate (Solu-Medrol) 125 mg IVPUSH ONETIME ONE Stop: 09/05/17 22:34 Last Admin: 09/05/17 22:51 Dose: 125 mg Methylprednisolone Sodium Succinate (Solu-Medrol) 60 mg IVPUSH Q6H [facility] Last Admin: 09/08/17 03:53 Dose: 60 mg Methylprednisolone Sodium Succinate (Solu-Medrol) 60 mg IVPUSH Q12H [facility] Methylprednisolone Sodium Succinate (Solu-Medrol) 40 mg IVPUSH Q12H [facility] Last Admin: 09/09/17 06:06 Dose: 40 mg Methylprednisolone Sodium Succinate (Solu-Medrol) 40 mg IVPUSH Q8H [facility] Last Admin: 09/13/17 07:44 Dose: 40 mg Pantoprazole Sodium (Protonix Iv) 40 mg IVPUSH Q12H [facility] Last Admin: 09/13/17 02:25 Dose: 40 mg Potassium Chloride (Klor-Con M20) 40 meq PO ONETIME ONE Stop: 09/10/17 07:50 Last Admin: 09/10/17 08:24 Dose: 40 meq Potassium Chloride (Klor-Con M20) 40 meq PO ONETIME ONE Stop: 09/14/17 08:22 Last Admin: 09/14/17 08:53 Dose: 40 meq Prednisone (Prednisone) 40 mg PO WITHBREAKFAST [facility] Last Admin: 09/10/17 08:25 Dose: 40 mg Thyroid (Heath Thyroid) 30 mg PO DAILY [facility] Last Admin: 09/06/17 13:58 Dose: Not Given Vancomycin HCl (Pharmacy To Dose - Vancomycin) 1 dose .XX ASDIRECTED [facility] - Exam General: Reports: Alert, Oriented, Cooperative, No Acute Distress HEENT: Denies: Mucous Membr. Moist/[place] (thrush much better than yesterday, some peg patches remain. ) Lungs: Reports: Clear to Auscultation, Normal Respiratory Effort Cardiovascular: Reports: Regular Rate, Regular Rhythm GI/Abdominal Exam: Normal Bowel Sounds, Soft, No Organomegaly, No Distention, No Abnormal Bruit, No Mass, Pelvis Stable, Tender (LLQ) Back Exam: Reports: Normal Inspection, Full Range of Motion Wound/Incisions: Reports: Healing Well Neurological: Reports: No New Focal Deficit Psy/Mental Status: Reports: Alert, Normal Affect, Normal Mood *Q Meaningful Use (DIS) - VTE *Q VTE Criteria *Q: - Stroke *Q Stroke Criteria *Q: - AMI *Q AMI Criteria *Q:
--- NOTE | 2017-09-15 14:39 | PCM.PN ---
- General Info Date of Service: 09/15/17 Admission Dx/Problem (Free Text): Admission Diagnosis/Problem Admission Diagnosis/Problem COPD, Moderate chronic obstructive pulmonary disease, HCAP - Patient Data Vitals - Most Recent: Last Vital Signs Temp 97.3 F 09/15/17 12:00 Pulse 114 H 09/15/17 12:00 Resp 22 H 09/15/17 12:00 BP 148/79 H 09/15/17 12:00 Pulse Ox 97 09/15/17 08:00 Weight - Most Recent: 69.5 kg I&O - Last 24 Hours: Intake & Output 09/14/17 09/15/17 09/15/17 22:59 06:59 14:59 Intake Total 1280 480 Output Total 1300 600 Balance -20 -120 Lab Results Last 24 Hours: Laboratory Results - last 24 hr 09/14/17 09/14/17 09/15/17 Range/Units 11:52 16:46 04:57 WBC 11.46 H (4.0-11.0) K/uL RBC 3.63 L (4.30-5.90) M/uL Hgb 10.2 L (12.0-16.0) g/dL Hct 31.3 L (36.0-46.0) % MCV 86.2 (80.0-98.0) fL MCH 28.1 (27.0-32.0) pg MCHC 32.6 (31.0-37.0) g/dL RDW Std Deviation 47.4 (28.0-62.0) fl RDW Coeff of Doris 15 (11.0-15.0) % Plt Count 330 (150-400) K/uL MPV 9.20 (7.40-12.00) fL Add Manual Diff YES Neutrophils % (Manual) 71 (48.0-80.0) % Band Neutrophils % 1 % Lymphocytes % (Manual) 21 (16.0-40.0) % Monocytes % (Manual) 7 (0.0-15.0) % Nucleated RBC % 0.0 /100WBC Absolute Seg Neuts 8.1 H (1.4-5.7) Band Neutrophils # 0.1 Lymphocytes # (Manual) 2.4 (0.6-2.4) Monocytes # (Manual) 0.8 (0.0-0.8) Nucleated RBCs # 0 K/uL Sodium (136-146) mmol/L Potassium (3.5-5.1) mmol/L Chloride (98-110) mmol/L Carbon Dioxide (21-31) mmol/L BUN (6.0-23.0) mg/dL Creatinine (0.6-1.5) mg/dL Est Cr Clr Drug Dosing mL/min Estimated GFR (MDRD) ml/min Glucose (60-110) mg/dL POC Glucose 101 193 H (60-110) mg/dL Calcium (8.8-10.8) mg/dL Magnesium (1.5-2.3) mEq/L Total Bilirubin (0.1-1.5) mg/dL AST (5-40) IU/L ALT (8-54) IU/L Alkaline Phosphatase (40-150) Total Protein (6.0-8.0) g/dL Albumin (3.4-4.8) g/dL Globulin (2.0-3.5) g/dL Albumin/Globulin Ratio 09/15/17 09/15/17 09/15/17 Range/Units 04:57 06:15 11:48 WBC (4.0-11.0) K/uL RBC (4.30-5.90) M/uL Hgb (12.0-16.0) g/dL Hct (36.0-46.0) % MCV (80.0-98.0) fL MCH (27.0-32.0) pg MCHC (31.0-37.0) g/dL RDW Std Deviation (28.0-62.0) fl RDW Coeff of Doris (11.0-15.0) % Plt Count (150-400) K/uL MPV (7.40-12.00) fL Add Manual Diff Neutrophils % (Manual) (48.0-80.0) % Band Neutrophils % % Lymphocytes % (Manual) (16.0-40.0) % Monocytes % (Manual) (0.0-15.0) % Nucleated RBC % /100WBC Absolute Seg Neuts (1.4-5.7) Band Neutrophils # Lymphocytes # (Manual) (0.6-2.4) Monocytes # (Manual) (0.0-0.8) Nucleated RBCs # K/uL Sodium 138 (136-146) mmol/L Potassium 3.5 (3.5-5.1) mmol/L Chloride 101 (98-110) mmol/L Carbon Dioxide 30 (21-31) mmol/L BUN 12 (6.0-23.0) mg/dL Creatinine 0.7 (0.6-1.5) mg/dL Est Cr Clr Drug Dosing 70.06 mL/min Estimated GFR (MDRD) > 60.0 ml/min Glucose 96 (60-110) mg/dL POC Glucose 101 117 H (60-110) mg/dL Calcium 8.1 L (8.8-10.8) mg/dL Magnesium 1.9 (1.5-2.3) mEq/L Total Bilirubin 0.5 (0.1-1.5) mg/dL AST 10 (5-40) IU/L ALT 8 (8-54) IU/L Alkaline Phosphatase 53 (40-150) Total Protein 5.1 L (6.0-8.0) g/dL Albumin 3.1 L (3.4-4.8) g/dL Globulin 2.0 (2.0-3.5) g/dL Albumin/Globulin Ratio 1.55 Vikash Results Last 24 Hours: Microbiology 09/11/17 11:10 Gram Stain - Final Sputum - Expectorated Sputum Culture - Final YEAST Normal Respiratory Lois 09/10/17 14:32 Aerobic Blood Culture - Preliminary Blood - Venous - Lab Draw NO GROWTH AFTER 4 DAYS Anaerobic Blood Culture - Preliminary NO GROWTH AFTER 4 DAYS 09/10/17 14:24 Aerobic Blood Culture - Preliminary Blood - Venous NO GROWTH AFTER 4 DAYS Anaerobic Blood Culture - Preliminary NO GROWTH AFTER 4 DAYS Med Orders - Current: Current Medications Acetaminophen (Tylenol) 650 mg PO Q6H PRN PRN Reason: Pain Last Admin: 09/14/17 10:53 Dose: 650 mg Acidophilus/Pectin (Acidophilus/Pectin, [place]) 1 tab PO DAILY [facility] Last Admin: 09/15/17 10:35 Dose: 1 tab Albuterol/Ipratropium (Duoneb 3.0-0.5 Mg/3 Ml) 3 ml NEB Q4HRRT [facility] Last Admin: 09/15/17 14:25 Dose: 3 ml Amoxicillin/Clavulanate Potassium (Augmentin 875 Mg/125 Mg) 1 tab PO Q12HR PRABHU Last Admin: 09/15/17 08:39 Dose: 1 tab Diphenhydramine/Nystatin/Lidocaine (Magic Mouthwash) 10 ml PO QID [facility] Last Admin: 09/15/17 11:59 Dose: 10 ml Fluticasone Propionate (Flonase) 0 gm NASBOTH DAILY [facility] Last Admin: 09/15/17 08:43 Dose: 2 spray Insulin Aspart (Novolog) 0 unit SUBCUT TIDAC PRABHU PRN Reason: Protocol Last Admin: 09/15/17 11:59 Dose: Not Given Lorazepam (Ativan) 1 mg IVPUSH BEDTIME PRN PRN Reason: Insomnia Last Admin: 09/14/17 22:48 Dose: 1 mg Meclizine HCl (Antivert) 25 mg PO TID PRN PRN Reason: Dizziness Morphine Sulfate (Morphine) 2 mg IVPUSH Q4H PRN PRN Reason: air hunger,SOB hyperventilatio Last Admin: 09/14/17 12:44 Dose: 2 mg Nicotine (Habitrol) 21 mg TRDERM DAILY [facility] Last Admin: 09/15/17 08:42 Dose: 21 mg Pantoprazole Sodium (Protonix) 40 mg PO DAILY [facility] Last Admin: 09/15/17 08:40 Dose: 40 mg Prednisone (Prednisone) 60 mg PO WITHBREAKFAST [facility] Last Admin: 09/15/17 08:38 Dose: 60 mg Sodium Chloride (Saline Flush) 2.5 ml FLUSH ASDIRECTED [facility] Sodium Chloride ([place] Nasal [place]) 0 ml ЕКАТЕРИНА QID PRN PRN Reason: sinus congestion Last Admin: 09/12/17 07:57 Dose: 2 sprays Thyroid ([place] Thyroid) 30 mg PO DAILY [facility] Last Admin: 09/15/17 08:39 Dose: 30 mg Tiotropium Silvis (Spiriva Handihaler) 1 mcg INH BID [facility] Last Admin: 09/15/17 10:00 Dose: 1 inhalation Discontinued Medications Albuterol/Ipratropium (Duoneb 3.0-0.5 Mg/3 Ml) 3 ml NEB ONETIME ONE Stop: 09/05/17 22:34 Last Admin: 09/05/17 22:52 Dose: 3 ml Albuterol/Ipratropium (Duoneb 3.0-0.5 Mg/3 Ml) 3 ml NEB Q4HRRT [facility] Last Admin: 09/06/17 05:56 Dose: 3 ml Albuterol/Ipratropium (Duoneb 3.0-0.5 Mg/3 Ml) 3 ml NEB Q6HRRT PRABHU Last Admin: 09/07/17 12:26 Dose: 3 ml Calcium Carbonate/Glycine (Tums) 1,000 mg PO ONETIME ONE Stop: 09/12/17 09:54 Last Admin: 09/12/17 10:24 Dose: 1,000 mg Sodium Chloride (Normal Saline) 1,000 mls @ 30 mls/hr IV STAT ONE Stop: 09/07/17 07:51 Last Admin: 09/05/17 22:52 Dose: 30 mls/hr Metronidazole 500 mg/ Premix 100 mls @ 100 mls/hr IV Q6H [facility] Last Admin: 09/10/17 08:33 Dose: 100 mls/hr Sodium Chloride (Sodium Chloride 0.45%) 1,000 mls @ 100 mls/hr IV ASDIRECTED [facility] Last Infusion: 09/07/17 00:45 Dose: 100 mls/hr Levofloxacin/Dextrose 750 mg/ (Premix) 150 mls @ 100 mls/hr IV ONETIME ONE Stop: 09/06/17 18:21 Last Admin: 09/06/17 17:09 Dose: 100 mls/hr Sodium Chloride (Normal Saline) 1,000 mls @ 999 mls/hr IV ASDIRECTED [facility] Levofloxacin/Dextrose 750 mg/ (Premix) 150 mls @ 100 mls/hr IV Q24H [facility] Last Admin: 09/13/17 16:07 Dose: 100 mls/hr Sodium Chloride (Normal Saline) 500 mls @ 125 mls/hr IV ONETIME ONE Stop: 09/09/17 12:29 Last Admin: 09/09/17 09:29 Dose: 125 mls/hr Piperacillin Sod/Tazobactam (Sod 4.5 gm/ Sodium Chloride) 100 mls @ 100 mls/hr IV Q6H [facility] Last Admin: 09/14/17 10:39 Dose: Not Given Sodium Chloride (Normal Saline) 1,000 mls @ 100 mls/hr IV ASDIRECTED [facility] Last Infusion: 09/11/17 09:14 Dose: 75 mls/hr Vancomycin HCl 1 gm/ Sodium (Chloride) 250 mls @ 250 mls/hr IV Q12H [facility] Last Admin: 09/12/17 00:57 Dose: Not Given Sodium Chloride (Normal Saline) 1,000 mls @ 75 mls/hr IV ASDIRECTED [facility] Last Admin: 09/12/17 08:25 Dose: 75 mls/hr Vancomycin HCl 1,250 mg/ (Dextrose/Water) 250 mls @ 166.667 mls/hr IV Q12H [facility] Last Admin: 09/12/17 00:58 Dose: Not Given Vancomycin HCl 1,250 mg/ (Sodium Chloride) 250 mls @ 166.667 mls/hr IV Q12H [facility] Last Admin: 09/12/17 01:00 Dose: 166.667 mls/hr Vancomycin HCl 1 gm/ Sodium (Chloride) 250 mls @ 166.667 mls/hr IV Q8H [facility] Last Admin: 09/14/17 09:00 Dose: 166.667 mls/hr Magnesium Sulfate 4 gm/ Premix 100 mls @ 25 mls/hr IV ONETIME ONE Stop: 09/12/17 13:53 Last Admin: 09/12/17 10:35 Dose: 25 mls/hr Magnesium Sulfate 4 gm/ Premix 100 mls @ 50 mls/hr IV ONETIME ONE Stop: 09/14/17 12:30 Last Admin: 09/14/17 10:40 Dose: 50 mls/hr Levofloxacin (Levaquin) 750 mg PO DAILY [facility] Methylprednisolone Sodium Succinate (Solu-Medrol) 125 mg IVPUSH ONETIME ONE Stop: 09/05/17 22:34 Last Admin: 09/05/17 22:51 Dose: 125 mg Methylprednisolone Sodium Succinate (Solu-Medrol) 60 mg IVPUSH Q6H [facility] Last Admin: 09/08/17 03:53 Dose: 60 mg Methylprednisolone Sodium Succinate (Solu-Medrol) 60 mg IVPUSH Q12H [facility] Methylprednisolone Sodium Succinate (Solu-Medrol) 40 mg IVPUSH Q12H [facility] Last Admin: 09/09/17 06:06 Dose: 40 mg Methylprednisolone Sodium Succinate (Solu-Medrol) 40 mg IVPUSH Q8H [facility] Last Admin: 09/13/17 07:44 Dose: 40 mg Pantoprazole Sodium (Protonix Iv) 40 mg IVPUSH Q12H [facility] Last Admin: 09/13/17 02:25 Dose: 40 mg Potassium Chloride (Klor-Con M20) 40 meq PO ONETIME ONE Stop: 09/10/17 07:50 Last Admin: 09/10/17 08:24 Dose: 40 meq Potassium Chloride (Klor-Con M20) 40 meq PO ONETIME ONE Stop: 09/14/17 08:22 Last Admin: 09/14/17 08:53 Dose: 40 meq Prednisone (Prednisone) 40 mg PO WITHBREAKFAST [facility] Last Admin: 09/10/17 08:25 Dose: 40 mg Thyroid ([place] Thyroid) 30 mg PO DAILY [facility] Last Admin: 09/06/17 13:58 Dose: Not Given Vancomycin HCl (Pharmacy To Dose - Vancomycin) 1 dose .XX ASDIRECTED [facility] - Problem List & Annotations (1) Hospital acquired PNA SNOMED Code(s): 834477860 Code(s): J18.9 - PNEUMONIA, UNSPECIFIED ORGANISM Status: Acute Current Visit: Yes (2) COPD exacerbation SNOMED Code(s): 539142821586794 Code(s): J44.1 - CHRONIC OBSTRUCTIVE PULMONARY DISEASE W (ACUTE) EXACERBATION Status: Acute Priority: High Current Visit: Yes (3) Hypoxia SNOMED Code(s): 428149877 Code(s): R09.02 - HYPOXEMIA Status: Acute Current Visit: Yes (4) Respiratory distress SNOMED Code(s): 716146259 Code(s): R06.03 - ACUTE RESPIRATORY DISTRESS Status: Resolved Current Visit: Yes (5) Hyperventilation SNOMED Code(s): 00539056 Code(s): R06.4 - HYPERVENTILATION Status: Resolved Current Visit: Yes (6) Acute respiratory alkalosis SNOMED Code(s): 38279952 Code(s): E87.3 - ALKALOSIS Status: Resolved Current Visit: Yes (7) Cholecystitis SNOMED Code(s): 34793966 Code(s): K81.9 - CHOLECYSTITIS, UNSPECIFIED Status: Acute Current Visit: Yes (8) Hypothyroid SNOMED Code(s): 31295464 Code(s): E03.9 - HYPOTHYROIDISM, UNSPECIFIED Status: Chronic Priority: Low Current Visit: No Qualifiers: Hypothyroidism type: unspecified Qualified Code(s): E03.9 - Hypothyroidism , unspecified (9) Polymyositis SNOMED Code(s): 25837629 Code(s): M33.20 - POLYMYOSITIS, ORGAN INVOLVEMENT UNSPECIFIED Status: Chronic Priority: Low Current Visit: No (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 SNOMED Code(s): 47976243 Code(s): MXO2344 - Status: Chronic Current Visit: Yes (11) COPD (chronic obstructive pulmonary disease) SNOMED Code(s): 21594681 Code(s): J44.9 - CHRONIC OBSTRUCTIVE PULMONARY DISEASE, UNSPECIFIED Status : Chronic Current Visit: No Qualifiers: COPD type: chronic bronchitis Chronic bronchitis type: unspecified Qualified Code(s): J42 - Unspecified chronic bronchitis (12) Dyspnea SNOMED Code(s): 210823423 Code(s): R06.00 - DYSPNEA, UNSPECIFIED Status: Acute Current Visit: Yes - My Orders Last 24 Hours: My Active Orders 09/14/17 14:37 Communication Order [RC] PRN 09/14/17 14:45 Diphenhyd/Lidocaine/Nystatin [Magic Mouthwash] 10 ml PO QID 09/15/17 10:13 CDIFF TOX A+B [OP] Routine 09/15/17 10:15 Acidophilus/Pectin, [place] 1 tab PO DAILY 09/15/17 12:42 Ready for Discharge [RC] PER UNIT ROUTINE - Plan Plan:: 67 year old female admitted with COPD exacerbation and RUQ abdominal pain 1. HCAP: Improving, cont. leukocytosis 12,000 this am. IV Solumedrol discontinued and Prednisone 60 mg PO started today. BC neg x 2days. Will discontinue IV antibiotics and transition to Augmentin BID. WIll monitor response today and plan for discharge in am. Will likely need oxygen, repeat Room air challenge today. Replacing K+ and Mg due to hypokalemia and Hypomagnesmia. 2. COPD: Stable. Prednisone 60 mg po q day today. Will encourage pulmonary rehab upon discharge. 3. Deconditioning: Likely from stay in hospital. PT[facility]OT [facility]. Will monitor today. 4. Polymyositis: Stable in remission. 5. Hypothyroidism: Stable. Continue [place] Thyroid VTE prophylaxis: Heparin Q12h GI prophylaxis: Protonix. Dispo: 1-2 days may need minimum of home health. See simple note of conversation with daughter.
[2017-09-15 16:01] VITALS: BP 153/87
== END 2017-09-15 17:50 | disposition home or self-care (01) | DRG 190 ==
LOC: MW.ED 22:20 → UNDOADMIN 09-06 00:11 → MW.MS 09-06 00:11 → MW.ICU 09-10 10:16 → MW.MS 09-12 09:43
PROVIDERS: ADMIT Internal Medicine; ATTEND Internal Medicine
DX: J44.0 Chronic obstructive pulmonary disease with (acute) lower respiratory infection (principal); Z88.8 Allergy status to other drugs, medicaments and biological substances; J18.9 Pneumonia, unspecified organism; M33.20 Polymyositis, organ involvement unspecified; B37.0 Candidal stomatitis; K81.9 Cholecystitis, unspecified; J44.1 Chronic obstructive pulmonary disease with (acute) exacerbation; R09.02 Hypoxemia; R06.03 Acute respiratory distress; R06.4 Hyperventilation; R10.9 Unspecified abdominal pain; E03.9 Hypothyroidism, unspecified; R06.00 Dyspnea, unspecified; D89.9 Disorder involving the immune mechanism, unspecified; F41.8 Other specified anxiety disorders; F17.200 Nicotine dependence, unspecified, uncomplicated; Z79.52 Long term (current) use of systemic steroids; Z79.899 Other long term (current) drug therapy; Z87.891 Personal history of nicotine dependence
CPT/HCPCS: 71010; 80053; 81001; 82550; 82553; 83880; 84484; 85025; 85610; 93005; 96361; 96374; 99285; J2930; J7040; 36415; 36600; 71020; 71020-26; 74176; 74176-26; 76700; 76700-26; 78226; 78226-26; 80048; 80202; 82803; 82962; 83605; 83690; 83735; 85652; 87040; 87070; 87205; 87324; 87486; 87581; 87633; 87798; 94640; 94664; 97161-GP; 97165-GO; A9270-GY; A9537; C9113; J1815-GY; J1956; J2060; J2270; J2543; J2920; J3370; J3475; J7030; J7050

== ENCOUNTER 2021-06-06 13:10 | Emergency (ER) | payer MEDICARE, OTHER, MEDICAID ==
[2021-06-06] MEDS ORDERED: Sodium Chloride 0.9% 2.5 ML Syringe FLUSH PRN (13:31)
[2021-06-06] MEDS ORDERED: methylPREDNISolone Sodium Succinate 125 MG/2 ML SDV IVPUSH ONE (13:31)
[2021-06-06] MEDS ORDERED: Sodium Chloride 0.9% 10 ML Syringe FLUSH PRN (13:31)
--- NOTE | 2021-06-06 14:06 | PCM.EKG ---
#1 Interpretation EKG Date: 06/06/21 Time: 13:56 Rhythm: Other (sinus tach) Rate (Beats/Min): 111 ST-T: Normal
[2021-06-06] MEDS ORDERED: Albuterol/Ipratropium 3.0-0.5 MG/3 ML Neb Soln NEB ONE (14:32)
--- NOTE | 2021-06-06 14:54 | EDM.PDOC ---
ED HPI GENERAL MEDICAL PROBLEM - General Chief Complaint: Respiratory Problem Stated Complaint: SOB Time Seen by Provider: 06/06/21 13:12 Source of Information: Reports: Patient History Limitations: Reports: No Limitations - History of Present Illness INITIAL COMMENTS - FREE TEXT/NARRATIVE: HISTORY AND PHYSICAL: History of present illness: Patient is a 71-year-old female, with a history of COPD, hyperlipidemia, who presents emergency room today with concern of shortness of breath, cough, stuffy/runny nose over the past 4 to 5 days worsening over the past 1 to 2 days. Patient states that she has been using her at home inhalers and has been using her albuterol rescue inhaler quite frequently and states too numerous to count, time she has been using it. Patient states that she is on 10 mg of prednisone daily for her COPD and so is immune compromise related to this. Patient states that she has had frequent pneumonia in the past. Patient states that her symptoms initially started with a stuffy/runny nose and then progressed to a cough and started feeling short of breath over the past 1 to 2 days. Patient states that she has not taken anything else other than her prescribed medication denies any other symptoms or concerns. Patient denies fever, chills, chest pain. Denies headache, neck stiff ness, change in vision, syncope, or near syncope. Denies nausea, vomiting, abdominal pain, diarrhea, constipation, or dysuria. Has not noted any blood in urine or stool. Patient has been eating and drinking appropriately. Review of systems: As per history of present illness and below otherwise all systems reviewed and negative. Past medical history: As per history of present illness and as reviewed below otherwise noncontributory. Surgical history: As per history of present illness and as reviewed below otherwise noncontributory. Social history: See social history for further information Family history: As per history of present illness and as reviewed below otherwise noncontributory. Physical exam: General: Patient is alert, oriented, and in no acute distress. Patient sitting comfortably on exam table. Patient is tachycardic 120s on exam, otherwise vitally stable and reviewed by me. HEENT: Atraumatic, normocephalic, pupils equal and reactive bilaterally, negative for conjunctival pallor or scleral icterus, mucous membranes moist, TMs normal bilaterally, throat clear, neck supple, nontender, trachea midline. No drooling or trismus noted. No meningeal signs. No hot potato voice noted. Lungs: Diminished lung sounds bilaterally otherwise, clear to auscultation, breath sounds equal bilaterally, chest nontender. Heart: S1S2, regular rate and rhythm without overt murmur Abdomen: Soft, nondistended, nontender. Negative for masses or hepa tosplenomegaly. Negative for costovertebral tenderness. Pelvis: Stable nontender. Genitourinary: Deferred. Rectal: Deferred. Skin: Intact, warm, dry. No lesions or rashes noted. Extremities: Atraumatic, negative for cords or calf pain. Neurovascular unremarkable. Neuro: Awake, alert, oriented. Cranial nerves II through XII unremarkable. Cerebellum unremarkable. Motor and sensory unremarkable throughout. Exam nonfocal. Notes: Patient is a 71-year-old female, with a history of COPD, who presents emergency room today with concern of shortness of breath, cough, and runny nose over the past several days, worsening the past 2 days. On arrival to the ED, patient is tachycardic 120s on exam otherwise vitally stable and reviewed by me. Patient does have bilateral diminished lung sounds on exam otherwise exam is unremarkable. Will obtain cardiac evaluation, provide a dose of steroids today in the emergency room, and DuoNeb and reassess patient. See Dr. Winter's dictation for specific EKG interpretation. However, sinus tachycardia with a rate of 111 without STEMI. CBC shows mild decrease in red blood cells at 3.96 and hematocrit mildly decreased at 35.7, otherwise mild derangements of CBC unremarkable. D-dimer is within normal limits. Chemistry is unremarkable. Troponin negative. COVID-19 negative. Chest x-ray shows hyperexpanded lungs with emphysema changes. No sign of acute disease. Upon reevaluation of patient, she has improvement of her symptoms with therapeutics given today in the emergency room. Reevaluation of patient's lung sounds show patient is able to take deeper breaths and patient's tachycardia of 120 has resolved with therapeutics. I did offer to prescribe patient azithromycin for COPD exacerbation, however, she declines and does not desire to take antibiotics. I also recommended a 5-day course of increase of her prednisone to 20 mg daily, however, patient only desires a 3-day course of prednisone. All risks versus benefits discussed with patient and expresses understanding. Strict return precautions thoroughly discussed with patient. Discussed importance for follow-up with a primary care provider. Voices understanding and is agreeable to plan of care. Denies any further questions or concerns at this time. Diagnostics: EKG, CBC, CMP, ddimer, COVID, 2 view chest x-ray, troponin Therapeutics: Solumedrol, Duoneb Prescription: Prednisone (Patient declines Azithromycin and desires to only take extra prednisone for 3 days-all risks versus benefits discussed with patient and expresses understanding) Impression: COPD exacerbation Plan: 1. Increase your prednisone dose to 20 mg daily for the next 3 days then continue your 10 mg daily as prescribed to you 2. Follow-up with your primary care provider as discussed. Return to the ED as needed and as discussed. Definitive disposition and diagnosis as appropriate pending reevaluation and review of above. - Related Data Allergies Allergy/AdvReac Type Severity Reaction Status Date / Time levothyroxine sodium Allergy UNKNOWN Verified 06/06/21 13:43 [From Levothroid] methotrexate Allergy UNKNOWN Verified 06/06/21 13:43 Home Meds: Home Meds Tiotropium [Spiriva HandiHaler] 18 mcg IH DAILY 06/15/14 [History] Thyroid [[place] Thyroid] 30 mg PO DAILY 01/02/15 [History] Meclizine [Antivert] 25 mg PO TID PRN #12 tablet 05/21/17 [Rx] Fluticasone Propionate 2 sprays NASBOTH DAILY 09/06/17 [History] Albuterol [IJD: Ventolin HFA] 2 puff INH Q4HR PRN #1 inh 09/15/17 [Rx] Amoxicillin/Clavulanate K [Augmentin 875 MG/125 MG] 1 tab PO Q12HR #7 tablet 09/15/17 [Rx] Bacillus Coagulans [Probiotic] 1 each PO DAILY #30 capsule. 09/15/17 [Rx] Diphenhyd/Lidocaine/Nystatin [Magic Mouthwash] 10 ml PO QID #200 bottle 09/15/17 [Rx] Omeprazole Magnesium [Prilosec Otc] 20 mg PO DAILY #30 tablet. 09/15/17 [Rx] predniSONE 10 - 40 mg PO WITHBREAKFAST #30 tablet 09/15/17 [Rx] predniSONE [Prednisone] 10 mg PO DAILY #0 09/15/17 [Rx] predniSONE [Prednisone] 20 mg PO DAILY 3 Days #3 tablet 06/06/21 [Rx] Past Medical History HEENT History: Reports: Other (See Below) Other HEENT History: wears corrective glasses fro reading Cardiovascular History: Reports: High Cholesterol Respiratory History: Reports: COPD, Pneumonia, Recurrent Gastrointestinal History: Reports: None Genitourinary History: Reports: UTI, Recurrent [employer] History: Reports: None Musculoskeletal History: Reports: None Neurological History: Reports: Migraines Psychiatric History: Reports: Anxiety, Depression Other Psychiatric History: no medication taken, not seen any DrCharles for it Endocrine/Metabolic History: Reports: Hypothyroidism Hematologic History: Reports: Other (See Below) Other Hematologic History: Polymyocytosis Immunologic History: Reports: None Oncologic (Cancer) History: Reports: None Dermatologic History: Reports: None - Infectious Disease History Infectious Disease History: Reports: Chicken Pox, Measles, Mumps - Past Surgical History HEENT Surgical History: Reports: None Cardiovascular Surgical History: Reports: None Respiratory Surgical History: Reports: None GI Surgical History: Reports: Appendectomy, Other (See Below) Other GI Surgeries/Procedures: G-Tube for 9 months -- removed Jun 2007 Female Surgical History: Reports: Hysterectomy, Oophorectomy, Salpingo-Oop horectomy Endocrine Surgical History: Reports: None Musculoskeletal Surgical History: Reports: Other (See Below) Other Musculoskeletal Surgeries/Procedures:: C3 or C4, L5 and S1 fusion Dermatological Surgical History: Reports: None Social & Family History - Family History Family Medical History: No Pertinent Family History HEENT: Reports: Cataract Cardiac: Reports: Heart Valve Replacement, [place], Prior Cardiac Arrest Respiratory: Reports: COPD OBGYN: Reports: Musculoskeletal: Reports: Arthritis Neurological: Reports: Dementia Psychiatric: Reports: Anxiety, Depression Endocrine/Metabolic: Reports: Diabetes, type II Oncologic: Reports: Colon, Lung - Tobacco Use Tobacco Use Status *Q: Current Every Day Tobacco User Years of Tobacco use: 50 Packs/Tins Daily: 0.5 - Caffeine Use Caffeine Use: Reports: Soda - Recreational Drug Use Recreational Drug Use: No ED ROS GENERAL - Review of Systems Review Of Systems: Comprehensive ROS is negative, except as noted in HPI. ED EXAM, GENERAL - Physical Exam Exam: See Below (see dictation) Course - Vital Signs Last Recorded V/S: Last Vital Signs Temp 96.6 F L 06/06/21 13:12 Pulse 121 H 06/06/21 13:12 Resp 20 06/06/21 13:12 BP 142/73 H 06/06/21 13:12 Pulse Ox 99 06/06/21 13:12 - Orders/Labs/Meds Orders: Active Orders 24 hr Category Date Time Status RT Aerosol Therapy [RC] ASDIRECTED Care 06/06/21 14:32 Active Sodium Chloride 0.9% [Saline Flush] Med 06/06/21 13:31 Active 10 ml FLUSH ASDIRECTED PRN Sodium Chloride 0.9% [Saline Flush] Med 06/06/21 13:31 Active 2.5 ml FLUSH ASDIRECTED PRN Isolation [COMM] Routine Oth 06/06/21 13:32 Active Saline Lock Insert [OM.PC] Stat Oth 06/06/21 13:31 Ordered Medication Orders Sodium Chloride (Sodium Chloride 0.9% 10 Ml Syringe) 10 ml FLUSH ASDIRECTED PRN PRN Reason: Keep Vein Open Last Admin: 06/06/21 14:27 Dose: 10 ml Documented by: LIDIA Sodium Chloride (Sodium Chloride 0.9% 2.5 Ml Syringe) 2.5 ml FLUSH ASDIRECTED PRN PRN Reason: Keep Vein Open Last Admin: 06/06/21 14:27 Dose: 2.5 ml Documented by: LIDIA Labs: Laboratory Tests 06/06/21 06/06/21 06/06/21 Range/Units 14:15 14:15 14:15 WBC 9.54 (4.0-11.0) K/uL RBC 3.96 L (4.30-5.90) M/uL Hgb 12.1 (12.0-16.0) g/dL Hct 35.7 L (36.0-46.0) % MCV 90.2 (80.0-98.0) fL MCH 30.6 (27.0-32.0) pg MCHC 33.9 (31.0-37.0) g/dL RDW Std Deviation 45.6 (28.0-62.0) fl RDW Coeff of Doris 14 (11.0-15.0) % Plt Count 351 (150-400) K/uL MPV 8.90 (7.40-12.00) fL Neut % (Auto) 86.9 H (48.0-80.0) % Lymph % (Auto) 6.6 L (16.0-40.0) % Graham % (Auto) 6.1 (0.0-15.0) % Eos % (Auto) 0.2 (0.0-7.0) % Baso % (Auto) 0.2 (0.0-1.5) % Neut # (Auto) 8.3 H (1.4-5.7) K/uL Lymph # (Auto) 0.6 (0.6-2.4) K/uL Graham # (Auto) 0.6 (0.0-0.8) K/uL Eos # (Auto) 0.0 (0.0-0.7) K/uL Baso # (Auto) 0.0 (0.0-0.1) K/uL Nucleated RBC % 0.0 /100WBC Nucleated RBCs # 0 K/uL D-Dimer, Quantitative 0.37 (0.0-0.50) mg/L FEU Sodium 137 (136-145) mmol/L Potassium 4.0 (3.5-5.1) mmol/L Chloride 99 (98-107) mmol/L Carbon Dioxide 25.7 (21.0-32.0) mmol/L BUN 5 L (7.0-18.0) mg/dL Creatinine 0.9 (0.6-1.0) mg/dL Est Cr Clr Drug Dosing 42.70 mL/min Estimated GFR (MDRD) > 60.0 ml/min Glucose 100 (74-106) mg/dL Calcium 8.5 (8.5-10.1) mg/dL Total Bilirubin 0.3 (0.2-1.0) mg/dL AST 15 (15-37) IU/L ALT 29 (14-63) IU/L Alkaline Phosphatase 81 (46-116) U/L Troponin I < 0.050 (0.000-0.056) ng/mL Total Protein 6.6 (6.4-8.2) g/dL Albumin 3.8 (3.4-5.0) g/dL Globulin 2.8 (2.6-4.0) g/dL Albumin/Globulin Ratio 1.4 (0.9-1.6) SARS-CoV-2 RNA (MELISSA) (NEGATIVE) 06/06/21 Range/Units 14:30 WBC (4.0-11.0) K/uL RBC (4.30-5.90) M/uL Hgb (12.0-16.0) g/dL Hct (36.0-46.0) % MCV (80.0-98.0) fL MCH (27.0-32.0) pg MCHC (31.0-37.0) g/dL RDW Std Deviation (28.0-62.0) fl RDW Coeff of Doris (11.0-15.0) % Plt Count (150-400) K/uL MPV (7.40-12.00) fL Neut % (Auto) (48.0-80.0) % Lymph % (Auto) (16.0-40.0) % Graham % (Auto) (0.0-15.0) % Eos % (Auto) (0.0-7.0) % Baso % (Auto) (0.0-1.5) % Neut # (Auto) (1.4-5.7) K/uL Lymph # (Auto) (0.6-2.4) K/uL Graham # (Auto) (0.0-0.8) K/uL Eos # (Auto) (0.0-0.7) K/uL Baso # (Auto) (0.0-0.1) K/uL Nucleated RBC % /100WBC Nucleated RBCs # K/uL D-Dimer, Quantitative (0.0-0.50) mg/L FEU Sodium (136-145) mmol/L Potassium (3.5-5.1) mmol/L Chloride (98-107) mmol/L Carbon Dioxide (21.0-32.0) mmol/L BUN (7.0-18.0) mg/dL Creatinine (0.6-1.0) mg/dL Est Cr Clr Drug Dosing mL/min Estimated GFR (MDRD) ml/min Glucose (74-106) mg/dL Calcium (8.5-10.1) mg/dL Total Bilirubin (0.2-1.0) mg/dL AST (15-37) IU/L ALT (14-63) IU/L Alkaline Phosphatase (46-116) U/L Troponin I (0.000-0.056) ng/mL Total Protein (6.4-8.2) g/dL Albumin (3.4-5.0) g/dL Globulin (2.6-4.0) g/dL Albumin/Globulin Ratio (0.9-1.6) SARS-CoV-2 RNA (MELISSA) NEGATIVE (NEGATIVE) Meds: Medications Generic Name Dose Route Start Last Admin Trade Name Freq PRN Reason Stop Dose Admin Sodium Chloride 10 ml 06/06/21 13:31 06/06/21 14:27 Sodium Chloride 0.9% 10 Ml Syringe FLUSH 10 ml ASDIRECTED PRN Administration Keep Vein Open Sodium Chloride 2.5 ml 06/06/21 13:31 06/06/21 14:27 Sodium Chloride 0.9% 2.5 Ml Syringe FLUSH 2.5 ml ASDIRECTED PRN Administration Keep Vein Open Discontinued Medications Generic Name Dose Route Start Last Admin Trade Name Freq PRN Reason Stop Dose Admin Albuterol/Ipratropium 3 ml 06/06/21 14:32 06/06/21 14:36 Albuterol/Ipratropium 3.0-0.5 Mg/3 Ml Neb Soln NEB 06/06/21 14:33 3 ml ONETIME ONE Administration Methylprednisolone Sodium Succinate 125 mg 06/06/21 13:31 06/06/21 14:27 Methylprednisolone Sodium Succinate 125 Mg/2 Ml Sdv IVPUSH 06/06/21 13:32 125 mg ONETIME ONE Administration Departure - Departure Time of Disposition: 16:11 Disposition: Home, Self-Care 01 Clinical Impression: COPD exacerbation - Discharge Information Prescriptions: predniSONE [Prednisone] 20 mg PO DAILY 3 Days #3 tablet Referrals: PCP,None [Primary Care Provider] - Forms: ED Department Discharge Additional Instructions: The following information is given to patients seen in the emergency department who are being discharged to home. This information is to outline your options for follow-up care. We provide all patients seen in our emergency department with a follow-up referral. The need for follow-up, as well as the timing and circumstances, are variable depending upon the specifics of your emergency department visit. If you don't have a primary care physician on staff, we will provide you with a referral. We always advise you to contact your personal physician following an emergency department visit to inform them of the circumstance of the visit and for follow-up with them and/or the need for any referrals to a consulting specialist. The emergency department will also refer you to a specialist when appropriate. This referral assures that you have the opportunity for follow-up care with a specialist. All of these measure are taken in an effort to provide you with optimal care, which includes your follow-up. Under all circumstances we always encourage you to contact your private physician who remains a resource for coordinating your care. When calling for follow-up care, please make the office aware that this follow-up is from your recent emergency room visit. If for any reason you are refused follow-up, please contact the [facility] Emergency Department at and asked to speak to the emergency department charge nurse. [facility] [address] [place] [id number] [place] [address] 1. Increase your prednisone dose to 20 mg daily for the next 3 days then continue your 10 mg daily as prescribed to you 2. Follow-up with your primary care provider as discussed. Return to the ED as needed and as discussed. Sepsis Event Note (ED) - Evaluation Sepsis Screening Result: Possible Sepsis Risk - Focused Exam Vital Signs: Vital Signs Temp Pulse Resp BP Pulse Ox 06/06/21 13:12 96.6 F L 121 H 20 142/73 H 99 - My Orders Last 24 Hours: My Active Orders 06/06/21 13:31 Sodium Chloride 0.9% [Saline Flush] 10 ml FLUSH ASDIRECTED PRN Sodium Chloride 0.9% [Saline Flush] 2.5 ml FLUSH ASDIRECTED PRN Saline Lock Insert [OM.PC] Stat 06/06/21 13:32 Isolation [COMM] Routine 06/06/21 14:32 RT Aerosol Therapy [RC] ASDIRECTED - Assessment/Plan Last 24 Hours: My Active Orders 06/06/21 13:31 Sodium Chloride 0.9% [Saline Flush] 10 ml FLUSH ASDIRECTED PRN Sodium Chloride 0.9% [Saline Flush] 2.5 ml FLUSH ASDIRECTED PRN Saline Lock Insert [OM.PC] Stat 06/06/21 13:32 Isolation [COMM] Routine 06/06/21 14:32 RT Aerosol Therapy [RC] ASDIRECTED
[2021-06-06 15:04] LABS: BLOOD UREA NITROGEN,BUN 5 mg/dL (7.0-18.0); CARBON DIOXIDE,CO2 25.7 mmol/L (21.0-32.0); CHLORIDE,CL 99 mmol/L (98-107); GLUCOSE RANDOM 100 mg/dL (74-106); SODIUM,NA 137 mmol/L (136-145)
--- NOTE | 2021-06-06 16:05 | CR ---
INDICATION: COPD, shortness of breath TECHNIQUE: Chest 2 views. COMPARISON: January 03, 2020 FINDINGS: Cardiovascular and mediastinum: Heart size and vasculature are normal in caliber and appearance. Mediastinum is within normal limits. Lungs and pleural spaces: Emphysematous changes. Lungs are hyperexpanded. No sign of infiltrate or mass. No sign of pleural effusion. No pneumothorax. Bones and soft tissues: No significant findings. IMPRESSION: Hyperexpanded lungs with emphysematous changes. No sign of acute disease. Dictated by Jyoti Tamayo MD @ 06/06/2021 4:04:[address] Jyoti Tamayo @ Jun 06 2021 4:04PM
[2021-06-06 16:21] VITALS: BP 131/64; PULSE 110
== END 2021-06-06 16:33 | disposition home or self-care (01) ==
LOC: MW.ED 13:10
DX: J44.1 Chronic obstructive pulmonary disease with (acute) exacerbation (principal); E03.9 Hypothyroidism, unspecified; E78.00 Pure hypercholesterolemia, unspecified; Z88.8 Allergy status to other drugs, medicaments and biological substances; Z20.822 Contact with and (suspected) exposure to COVID-19; Z72.0 Tobacco use; Z79.899 Other long term (current) drug therapy
CPT/HCPCS: 71046; 80053; 84484; 85025; 85379; 87804; 93005; 94640; 96374; 99285; J2930; U0002; J7620-GY

== ENCOUNTER 2021-06-14 11:49 | Emergency (ER) | payer MEDICARE, OTHER, MEDICAID ==
[2021-06-14] MEDS ORDERED: Sodium Chloride 0.9% 10 ML Syringe FLUSH PRN (11:51)
[2021-06-14] MEDS: Sodium Chloride 0.9% 2.5 ML Syringe FLUSH PRN ×2 (11:56→12:12)
[2021-06-14] MEDS ORDERED: Albuterol/Ipratropium 3.0-0.5 MG/3 ML Neb Soln NEB ONE ×3 (11:58→11:59)
[2021-06-14] MEDS ORDERED: methylPREDNISolone Sodium Succinate 125 MG/2 ML SDV IVPUSH ONE (11:59)
--- NOTE | 2021-06-14 12:01 | PCM.EKG ---
#1 Interpretation EKG Date: 06/14/21 Time: 11:51 Rhythm: NSR Rate (Beats/Min): 120 Badger: Normal P-Wave: Present QRS: Normal ST-T: Normal QT: Normal IL/PQ Interval: 168 EKG Interpretation Comments: sinus tachycardia
--- NOTE | 2021-06-14 12:18 | EDM.PDOC ---
ED HPI GENERAL MEDICAL PROBLEM - General Chief Complaint: Respiratory Problem Stated Complaint: SOB Time Seen by Provider: 06/14/21 11:51 Source of Information: Reports: Patient History Limitations: Reports: No Limitations - History of Present Illness INITIAL COMMENTS - FREE TEXT/NARRATIVE: HISTORY AND PHYSICAL: History of present illness: Patient is a 71-year-old female, with a history of COPD, hyperlipidemia, who presents emergency room today with concern of worsening shortness of breath and cough that has been ongoing for approximately 2 weeks. She has been using her at home inhalers, has been on a few doses of prednisone, and azithromycin and states that she continues to have worsening shortness of breath despite using these. Patient states that she is on 10 mg of prednisone daily for COPD so is immune compromised at baseline. Patient states she has had frequent pneumonia in the past. Patient denies any other symptoms or concerns. Patient denies fever, chills, chest pain. Denies headache, neck stiff ness, change in vision, syncope, or near syncope. Denies nausea, vomiting, abdominal pain, diarrhea, constipation, or dysuria. Has not noted any blood in urine or stool. Patient has been eating and drinking appropriately. Review of systems: As per history of present illness and below otherwise all systems reviewed and negative. Past medical history: As per history of present illness and as reviewed below otherwise noncontributory. Surgical history: As per history of present illness and as reviewed below otherwise noncontributory. Social history: See social history for further information Family history: As per history of present illness and as reviewed below otherwise noncontributory. Physical exam: General: Patient is alert, oriented, and in no acute distress. Patient sitting comfortably on exam table. Vitals stable and reviewed by me. O2 on RA 97% HEENT: Atraumatic, normocephalic, pupils equal and reactive bilaterally, negative for conjunctival pallor or scleral icterus, mucous membranes moist, TMs normal bilaterally, throat clear, neck supple, nontender, trachea midline. No drooling or trismus noted. No meningeal signs. No hot potato voice noted. Lungs: Expiratory wheezing to bilateral lung bases to auscultation, breath sounds equal bilaterally, chest nontender. Patient speaking clearly without breathlessness, no stridor, no accessory muscle use or respiratory distress. Heart: S1S2, regular rate and rhythm without overt murmur Abdomen: Soft, nondistended, nontender. Negative for masses or hepatosplenomegaly. Negative for costovertebral tenderness. Pelvis: Stable nontender. Genitourinary: Deferred. Rectal: Deferred. Skin: Intact, warm, dry. No lesions or rashes noted. Extremities: Atraumatic, negative for cords or calf pain. Neurovascular unremarkable. Neuro: Awake, alert, oriented. Cranial nerves II through XII unremarkable. Cerebellum unremarkable. Motor and sensory unremarkable throughout. Exam nonfocal. Notes: Patient is a 71-year-old female, with a history of COPD, who presents emergency room today with concern of shortness of breath and cough ongoing for the past 2 weeks. I had personally seen and evaluated the patient on 06/06/2021 for similar symptoms at that time. At that time, patient declined azithromycin but did agree to take a steroid pack. Patient states she decided to get the azith romycin a few days after from her primary care and has today and tomorrow left of the Z pack. Despite the prednisone and azithromycin, states she has had worsening symptoms and has not had any improvement of her symptoms with this. Upon arrival to the ED, patient is vitally stable and oxygen on room air is 97%. Patient does have some expiratory wheezing in bilateral lung walker on exam, otherwise is able to speak clearly without breathlessness and no accessory muscle use or signs of respiratory distress. Will repeat cardiac evaluation and obtain and CT chest. Will also provide a dose of Solu-Medrol, and duo nebs here in the emergency room and reassess patient. See Dr. Paulino's dictation for specific EKG interpretation. However, sinus tachycardia without STEMI. CBC remarkable for leukocytosis of 19.86, however, patient has been on multiple steroid packs and is also on chronic prednisone. Patient does have thrombocytosis of 533, monocyte percent elevation at 17, absolute segs ne utrophils mildly elevated at 10.9, otherwise, CBC unremarkable. CMP shows mild hyponatremia of 134, hyperchloremia 94, mild elevation of creatinine at 1.1, and mild elevation of glucose at 153. Otherwise CMP unremarkable. Troponin negative. Lipase within normal limits. Influenza and COVID-19 are negative. VBG shows pH WNL at 7.[address] chest shows no evidence for acute pulmonary embolism. Moderate emphysema. Apical scarring unchanged. Upon reevaluation of patient, she has slight improvement of her wheezing with therapeutics in the emergency room today. Patient remains vitally stable and comfortable throughout stay in emergency room. Patient oxygen remains within normal limits on room air and patient does not have any worsening shortness of breath throughout stay in emergency room. After further conversation of patient, she states that her shortness of breath tends to be more issues with her sinuses and states that it dripped on the back of her throat and should be like she cannot cough enough to clear it out. Patient also notes that she has been smoking more heavily than usual and states that she usually only would smoke 2 to 3 cigarettes a week and has been smoking packs a day over the past several days. Also discussed with patient, if she had availability to her home COPD medications and states that she has not been doing her DuoNeb as she "does not feel this works ". Discussed with patient to schedule her DuoNeb at least 3 times a day and as needed even if she feels it is not drastically helping during her acute exacerbation. Patient states she does have a post anesthesia care unit nurse and discussed with patient since she is having frequent COPD exacerbations, to schedule an appointment with her post anesthesia care unit nurse to discuss further care. Patient is on chronic prednisone, and has been on 30 mg of prednisone daily for the past week. Will increase this and taper down over the next several days back to her baseline. Patient also requesting a refill for Flonase so we will send this in. Given that patient has been having worsening symptoms on Azithromycin will switch this to doxycycline. Strict return precautions thoroughly discussed with patient. Discussed importance of close follow-up with her primary care provider and post anesthesia care unit nurse for further treatment of her COPD. Voices understanding and is agreeable to plan of care. Denies any further questions or concerns at this time. Diagnostics: EKG, CBC, CMP, Ang CT Chest, COVID/Flu, Trop, VBG Therapeutics: Duoneb x 3, Solumedrol Prescription: Doxycycline, Flonase, Prednisone taper Impression: COPD exacerbation Plan: 1. Continue to work on stop smoking as discussed. Use your albuterol nebulizers TID for the next 5 days to help with shortness of breath as discussed. 2. Take medication as prescribed. Continue to monitor your oxygen at home as discussed. 3. Follow-up with your primary care provider and post anesthesia care unit nurse as discussed. Return to the ED as needed and as discussed. Definitive disposition and diagnosis as appropriate pending reevaluation and review of above. - Related Data Allergies Allergy/AdvReac Type Severity Reaction Status Date / Time levothyroxine sodium Allergy UNKNOWN Verified 06/14/21 12:37 [From Levothroid] methotrexate Allergy UNKNOWN Verified 06/14/21 12:37 Home Meds: Home Meds Tiotropium [Spiriva HandiHaler] 18 mcg IH DAILY 06/15/14 [History] Thyroid [Morgan Thyroid] 30 mg PO DAILY 01/02/15 [History] Meclizine [Antivert] 25 mg PO TID PRN #12 tablet 05/21/17 [Rx] Fluticasone Propionate 2 sprays NASBOTH DAILY 09/06/17 [History] Albuterol [IJD: Ventolin HFA] 2 puff INH Q4HR PRN #1 inh 09/15/17 [Rx] Amoxicillin/Clavulanate K [Augmentin 875 MG/125 MG] 1 tab PO Q12HR #7 tablet 09/15/17 [Rx] Bacillus Coagulans [Probiotic] 1 each PO DAILY #30 capsule. 09/15/17 [Rx] Diphenhyd/Lidocaine/Nystatin [Magic Mouthwash] 10 ml PO QID #200 bottle 09/15/17 [Rx] Omeprazole Magnesium [Prilosec Otc] 20 mg PO DAILY #30 tablet. 09/15/17 [Rx] predniSONE 10 - 40 mg PO WITHBREAKFAST #30 tablet 09/15/17 [Rx] predniSONE [Prednisone] 10 mg PO DAILY #0 09/15/17 [Rx] predniSONE [Prednisone] 20 mg PO DAILY 3 Days #3 tablet 06/06/21 [Rx] Doxycycline [Vibramycin] 100 mg PO BID 7 Days #14 cap 06/14/21 [Rx] Fluticasone Propionate [Flonase] 16 gm NS DAILY PRN #1 bottle 06/14/21 [Rx] predniSONE [Prednisone] 20 mg PO DAILY 5 Days #13 tablet 06/14/21 [Rx] Past Medical History HEENT History: Reports: Other (See Below) Other HEENT History: wears corrective glasses fro reading Cardiovascular History: Reports: High Cholesterol Respiratory History: Reports: COPD, Pneumonia, Recurrent Gastrointestinal History: Reports: None Genitourinary History: Reports: UTI, Recurrent [employer] History: Reports: None Musculoskeletal History: Reports: None Neurological History: Reports: Migraines Psychiatric History: Reports: Anxiety, Depression Other Psychiatric History: no medication taken, not seen any DrCharles for it Endocrine/Metabolic History: Reports: Hypothyroidism Hematologic History: Reports: Other (See Below) Other Hematologic History: Polymyocytosis Immunologic History: Reports: None Oncologic (Cancer) History: Reports: None Dermatologic History: Reports: None - Infectious Disease History Infectious Disease History: Reports: Chicken Pox, Measles, Mumps - Past Surgical History HEENT Surgical History: Reports: None Cardiovascular Surgical History: Reports: None Respiratory Surgical History: Reports: None GI Surgical History: Reports: Appendectomy, Other (See Below) Other GI Surgeries/Procedures: G-Tube for 9 months -- removed Jun 2007 Female Surgical History: Reports: Hysterectomy, Oophorectomy, Salpingo- Oophorectomy Endocrine Surgical History: Reports: None Musculoskeletal Surgical History: Reports: Other (See Below) Other Musculoskeletal Surgeries/Procedures:: C3 or C4, L5 and S1 fusion Dermatological Surgical History: Reports: None Social & Family History - Family History Family Medical History: No Pertinent Family History HEENT: Reports: Cataract Cardiac: Reports: Heart Valve Replacement, [place], Prior Cardiac Arrest Respiratory: Reports: COPD OBGYN: Reports: Musculoskeletal: Reports: Arthritis Neurological: Reports: Dementia Psychiatric: Reports: Anxiety, Depression Endocrine/Metabolic: Reports: Diabetes, type II Oncologic: Reports: Colon, Lung - Caffeine Use Caffeine Use: Reports: Soda ED ROS GENERAL - Review of Systems Review Of Systems: Comprehensive ROS is negative, except as noted in HPI. ED EXAM, GENERAL - Physical Exam Exam: See Below (see dictation) Course - Vital Signs Last Recorded V/S: Last Vital Signs Temp 98.1 F 06/14/21 13:24 Pulse 116 H 06/14/21 15:28 Resp 18 06/14/21 15:28 BP 135/70 06/14/21 15:28 Pulse Ox 98 06/14/21 15:28 - Orders/Labs/Meds Orders: Active Orders 24 hr Category Date Time Status CULTURE URINE [MREF] Stat Lab 06/14/21 13:47 Received Saline Lock Insert [OM.PC] Stat Oth 06/14/21 11:51 Ordered Labs: Laboratory Tests 06/14/21 06/14/21 06/14/21 Range/Units 11:58 11:58 11:58 WBC 19.86 H (4.0-11.0) K/uL RBC 4.74 (4.30-5.90) M/uL Hgb 14.3 (12.0-16.0) g/dL Hct 42.1 (36.0-46.0) % MCV 88.8 (80.0-98.0) fL MCH 30.2 (27.0-32.0) pg MCHC 34.0 (31.0-37.0) g/dL RDW Std Deviation 45.3 (28.0-62.0) fl RDW Coeff of Doris 14 (11.0-15.0) % Plt Count 533 H (150-400) K/uL MPV 9.10 (7.40-12.00) fL Add Manual Diff YES Neutrophils % (Manual) 55 (48.0-80.0) % Lymphocytes % (Manual) 24 (16.0-40.0) % Monocytes % (Manual) 17 H (0.0-15.0) % Eosinophils % (Manual) 2 (0.0-7.0) % Metamyelocytes % 1 % Myelocytes % 1 % Nucleated RBC % 0.0 /100WBC Absolute Seg Neuts 10.9 H (1.4-5.7) Lymphocytes # (Manual) 4.8 H (0.6-2.4) Monocytes # (Manual) 3.4 H (0.0-0.8) Eosinophils # (Manual) 0.4 (0.0-0.7) Absolute Metamyelocyte 0.2 Absolute Myelocytes 0.2 Nucleated RBCs # 0 K/uL VBG pH 7.39 (7.31-7.41) VBG pCO2 47 (41-51) mmHG VBG pO2 35 mmHG VBG HCO3 28 (23-28) mEq/L VBG Total CO2 25 (24-29) mmol/L VBG Base Excess 2.5 (-2.0-3.0) Sodium 134 L (136-145) mmol/L Potassium 3.6 (3.5-5.1) mmol/L Chloride 94 L (98-107) mmol/L Carbon Dioxide 28.7 (21.0-32.0) mmol/L BUN 10 (7.0-18.0) mg/dL Creatinine 1.1 H (0.6-1.0) mg/dL Est Cr Clr Drug Dosing TNP Estimated GFR (MDRD) 49.0 ml/min Glucose 153 H (74-106) mg/dL Calcium 9.1 (8.5-10.1) mg/dL Total Bilirubin 0.5 (0.2-1.0) mg/dL AST 22 (15-37) IU/L ALT 38 (14-63) IU/L Alkaline Phosphatase 87 (46-116) U/L Troponin I < 0.050 (0.000-0.056) ng/mL Total Protein 7.2 (6.4-8.2) g/dL Albumin 4.3 (3.4-5.0) g/dL Globulin 2.9 (2.6-4.0) g/dL Albumin/Globulin Ratio 1.5 (0.9-1.6) Lipase 127 (73-393) U/L Urine Color Urine Appearance Urine pH (5.0-8.0) Ur Specific [place] (1.001-1.035) Urine Protein (NEGATIVE) mg/dL Urine Glucose (UA) (NEGATIVE) mg/dL Urine Ketones (NEGATIVE) mg/dL Urine Occult Blood (NEGATIVE) Urine Nitrite (NEGATIVE) Urine Bilirubin (NEGATIVE) Urine Urobilinogen (<2.0) EU/dL Ur Leukocyte Esterase (NEGATIVE) Urine RBC (0-2/HPF) Urine WBC (0-5/HPF) Ur Epithelial Cells (NONE-FEW) Urine Bacteria (NEGATIVE) Urine Mucus (NONE-MOD) Influenza Type A RNA (NEGATIVE) Influenza Type B RNA (NEGATIVE) SARS-CoV-2 RNA (MELISSA) (NEGATIVE) 06/14/21 06/14/21 Range/Units 12:26 13:47 WBC (4.0-11.0) K/uL RBC (4.30-5.90) M/uL Hgb (12.0-16.0) g/dL Hct (36.0-46.0) % MCV (80.0-98.0) fL MCH (27.0-32.0) pg MCHC (31.0-37.0) g/dL RDW Std Deviation (28.0-62.0) fl RDW Coeff of Doris (11.0-15.0) % Plt Count (150-400) K/uL MPV (7.40-12.00) fL Add Manual Diff Neutrophils % (Manual) (48.0-80.0) % Lymphocytes % (Manual) (16.0-40.0) % Monocytes % (Manual) (0.0-15.0) % Eosinophils % (Manual) (0.0-7.0) % Metamyelocytes % % Myelocytes % % Nucleated RBC % /100WBC Absolute Seg Neuts (1.4-5.7) Lymphocytes # (Manual) (0.6-2.4) Monocytes # (Manual) (0.0-0.8) Eosinophils # (Manual) (0.0-0.7) Absolute Metamyelocyte Absolute Myelocytes Nucleated RBCs # K/uL VBG pH (7.31-7.41) VBG pCO2 (41-51) mmHG VBG pO2 mmHG VBG HCO3 (23-28) mEq/L VBG Total CO2 (24-29) mmol/L VBG Base Excess (-2.0-3.0) Sodium (136-145) mmol/L Potassium (3.5-5.1) mmol/L Chloride (98-107) mmol/L Carbon Dioxide (21.0-32.0) mmol/L BUN (7.0-18.0) mg/dL Creatinine (0.6-1.0) mg/dL Est Cr Clr Drug Dosing Estimated GFR (MDRD) ml/min Glucose (74-106) mg/dL Calcium (8.5-10.1) mg/dL Total Bilirubin (0.2-1.0) mg/dL AST (15-37) IU/L ALT (14-63) IU/L Alkaline Phosphatase (46-116) U/L Troponin I (0.000-0.056) ng/mL Total Protein (6.4-8.2) g/dL Albumin (3.4-5.0) g/dL Globulin (2.6-4.0) g/dL Albumin/Globulin Ratio (0.9-1.6) Lipase (73-393) U/L Urine Color YELLOW Urine Appearance CLEAR Urine pH 6.0 (5.0-8.0) Ur Specific [place] <= 1.005 (1.001-1.035) Urine Protein NEGATIVE (NEGATIVE) mg/dL Urine Glucose (UA) NEGATIVE (NEGATIVE) mg/dL Urine Ketones NEGATIVE (NEGATIVE) mg/dL Urine Occult Blood NEGATIVE (NEGATIVE) Urine Nitrite NEGATIVE (NEGATIVE) Urine Bilirubin NEGATIVE (NEGATIVE) Urine Urobilinogen 0.2 (<2.0) EU/dL Ur Leukocyte Esterase TRACE H (NEGATIVE) Urine RBC NONE SEEN (0-2/HPF) Urine WBC 0-4 (0-5/HPF) Ur Epithelial Cells OCCASIONAL (NONE-FEW) Urine Bacteria 2+ H (NEGATIVE) Urine Mucus LIGHT (NONE-MOD) Influenza Type A RNA NEGATIVE (NEGATIVE) Influenza Type B RNA NEGATIVE (NEGATIVE) SARS-CoV-2 RNA (MELISSA) NEGATIVE (NEGATIVE) Meds: Medications Discontinued Medications Generic Name Dose Route Start Last Admin Trade Name Freq PRN Reason Stop Dose Admin Albuterol/Ipratropium 3 ml 06/14/21 11:58 06/14/21 12:15 Albuterol/Ipratropium 3.0-0.5 Mg/3 Ml Neb Soln NEB 06/14/21 11:59 3 ml ONETIME ONE Administration Albuterol/Ipratropium 3 ml 06/14/21 11:59 06/14/21 12:15 Albuterol/Ipratropium 3.0-0.5 Mg/3 Ml Neb Soln NEB 06/14/21 12:00 3 ml ONETIME ONE Administration Albuterol/Ipratropium 3 ml 06/14/21 11:59 06/14/21 12:15 Albuterol/Ipratropium 3.0-0.5 Mg/3 Ml Neb Soln NEB 06/14/21 12:00 3 ml ONETIME ONE Administration Iopamidol 75 ml 06/14/21 17:30 06/14/21 17:31 Iopamidol 755 Mg/Ml 500 Ml Multipack Bottle IVPUSH 06/14/21 17:31 75 ml ONETIME STA Administration Methylprednisolone Sodium Succinate 125 mg 06/14/21 11:59 06/14/21 12:09 Methylprednisolone Sodium Succinate 125 Mg/2 Ml Sdv IVPUSH 06/14/21 12:00 125 mg ONETIME ONE Administration Sodium Chloride 10 ml 06/14/21 11:51 06/14/21 11:56 Sodium Chloride 0.9% 10 Ml Syringe FLUSH 10 ml ASDIRECTED PRN Administration Keep Vein Open Sodium Chloride 2.5 ml 06/14/21 11:51 06/14/21 12:12 Sodium Chloride 0.9% 2.5 Ml Syringe FLUSH 2.5 ml ASDIRECTED PRN Administration Keep Vein Open Departure - Departure Time of Disposition: 15:17 Disposition: Home, Self-Care 01 Clinical Impression: COPD exacerbation - Discharge Information Prescriptions: Fluticasone Propionate [Flonase] 16 gm NS DAILY PRN #1 bottle PRN Reason: Rhinitis predniSONE [Prednisone] 20 mg PO DAILY 5 Days #13 tablet Doxycycline [Vibramycin] 100 mg PO BID 7 Days #14 cap Instructions: Chronic Obstructive Pulmonary Disease Exacerbation Referrals: Ricardo Rodgers MD [Primary Care Provider] - Forms: ED Department Discharge Additional Instructions: The following information is given to patients seen in the emergency department who are being discharged to home. This information is to outline your options for follow-up care. We provide all patients seen in our emergency department with a follow-up referral. The need for follow-up, as well as the timing and circumstances, are variable depending upon the specifics of your emergency department visit. If you don't have a primary care physician on staff, we will provide you with a referral. We always advise you to contact your personal physician following an emergency department visit to inform them of the circumstance of the visit and for follow-up with them and/or the need for any referrals to a consulting specialist. The emergency department will also refer you to a specialist when appropriate. This referral assures that you have the opportunity for follow-up care with a specialist. All of these measure are taken in an effort to provide you with optimal care, which includes your follow-up. Under all circumstances we always encourage you to contact your private tierney singletary who remains a resource for coordinating your care. When calling for follow-up care, please make the office aware that this follow-up is from your recent emergency room visit. If for any reason you are refused follow-up, please contact the [facility] at and asked to speak to the emergency department charge nurse. [facility] [address] [place] [id number] [place] [address] 1. Continue to work on stop smoking as discussed. Use your albuterol nebulizers TID for the next 5 days to help with shortness of breath as discussed. 2. Take medication as prescribed. Continue to monitor your oxygen at home as discussed. 3. Follow-up with your primary care provider and post anesthesia care unit nurse as discussed. Return to the ED as needed and as discussed. - My Orders Last 24 Hours: My Active Orders 06/14/21 11:51 Saline Lock Insert [OM.PC] Stat 06/14/21 13:47 CULTURE URINE [MREF] Stat - Assessment/Plan Last 24 Hours: My Active Orders 06/14/21 11:51 Saline Lock Insert [OM.PC] Stat 06/14/21 13:47 CULTURE URINE [MREF] Stat
[2021-06-14 12:32] LABS: BLOOD UREA NITROGEN,BUN 10 mg/dL (7.0-18.0); CARBON DIOXIDE,CO2 28.7 mmol/L (21.0-32.0); CHLORIDE,CL 94 mmol/L (98-107); GLUCOSE RANDOM 153 mg/dL (74-106); LIPASE 127 U/L (73-393); POTASSIUM,K 3.6 mmol/L (3.5-5.1); SODIUM,NA 134 mmol/L (136-145)
[2021-06-14 13:16] LABS: CORONAVIRUS COVID-19 NAA NEGATIVE (NEGATIVE); INFLUENZA A NAA NEGATIVE (NEGATIVE); INFLUENZA B NAA NEGATIVE (NEGATIVE)
--- NOTE | 2021-06-14 13:38 | CR ---
INDICATION: Chest pain TECHNIQUE: Chest 1 view Comparison: 06/06/2021 Findings: Cardiomediastinal silhouette is unremarkable. No focal lung consolidation, pleural effusion or pneumothorax. Bones are unremarkable for age. Impression: No acute cardiopulmonary abnormality. Dictated by Brian Mcgill MD @ 06/14/2021 1:37:05 PM (Electronically Signed)
--- NOTE | 2021-06-14 14:20 | CT ---
INDICATION: Shortness of breath. COMPARISON: 06/14/2021 chest x-ray. 10/08/[address] TECHNIQUE: CT angiography of the chest PE protocol. 75 cc IV [id number]. FINDINGS: No filling defect to indicate acute PE. Heart is normal in size. No pericardial effusion. No enlarged thoracic lymph nodes. Imaged upper abdomen is unremarkable. Mild degenerative changes in the spine. Moderate centrilobular emphysema. No focal lung consolidation, pleural effusion or pneumothorax. Biapical pleural-parenchymal scarring, with focal more pronounced opacity in the right apex, unchanged from 2017 CT. IMPRESSION: 1. No evidence of acute PE. 2. Moderate emphysema. 3. Apical scarring is unchanged. Please note that all CT scans at this facility use dose modulation, iterative reconstruction, and/or weight-based dosing when appropriate to reduce radiation dose to as low as reasonably achievable. Dictated by MD VARGAS @ 06/14/2021 2:19:09 PM (Electronically Signed)
[2021-06-14 15:28] VITALS: BP 135/70; PULSE 116
[2021-06-14] MEDS ORDERED: Iopamidol 755 MG/ML 500 ML Multipack Bottle IVPUSH STA (17:30)
== END 2021-06-14 15:28 | disposition home or self-care (01) ==
LOC: MW.ED 11:49
DX: J44.1 Chronic obstructive pulmonary disease with (acute) exacerbation (principal); E03.9 Hypothyroidism, unspecified; Z88.8 Allergy status to other drugs, medicaments and biological substances; Z79.899 Other long term (current) drug therapy; Z20.822 Contact with and (suspected) exposure to COVID-19
CPT/HCPCS: 0240U; 36415; 71045; 71275; 80053; 81001; 82803; 83690; 84484; 85025; 87086; 87088; 87186; 93005; 96374; 99285; J2930; Q9967; J7620-GY

== ENCOUNTER 2022-10-10 21:40 | Emergency (ER) | payer MEDICARE, OTHER ==
[2022-10-10] MEDS ORDERED: Sodium Chloride 0.9% 10 ML Syringe FLUSH PRN (22:03)
[2022-10-10] MEDS ORDERED: Sodium Chloride 0.9% 1,000 ML IV ONE (22:03)
[2022-10-10] MEDS ORDERED: Sodium Chloride 0.9% 2.5 ML Syringe FLUSH PRN (22:03)
[2022-10-10] MEDS ORDERED: Albuterol/Ipratropium 3.0-0.5 MG/3 ML Neb Soln NEB ONE (22:27)
[2022-10-10 22:43] LABS: CORONAVIRUS COVID-19 NAA NEGATIVE (NEGATIVE); INFLUENZA A NAA NEGATIVE (NEGATIVE); INFLUENZA B NAA NEGATIVE (NEGATIVE); RESPIRATORY SYNCYTIAL VIR NAA NEGATIVE (NEGATIVE)
[2022-10-10 22:48] LABS: CARBON DIOXIDE,CO2 28.2 mmol/L (21.0-32.0); POTASSIUM,K 3.1 mmol/L (3.5-5.1)
[2022-10-10] MEDS ORDERED: cefTRIAXone 1 GM in Sodium Chloride 0.9% 50 ML IV ONE (23:17)
[2022-10-10 23:52] VITALS: BP 122/74; PULSE 71
== END 2022-10-10 23:51 | disposition home or self-care (01) ==
LOC: MW.ED 21:40
DX: J06.9 Acute upper respiratory infection, unspecified (principal); N39.0 Urinary tract infection, site not specified; J44.9 Chronic obstructive pulmonary disease, unspecified; E03.9 Hypothyroidism, unspecified; E11.9 Type 2 diabetes mellitus without complications; Z88.8 Allergy status to other drugs, medicaments and biological substances; Z79.899 Other long term (current) drug therapy; Z79.84 Long term (current) use of oral hypoglycemic drugs; Z20.822 Contact with and (suspected) exposure to COVID-19
CPT/HCPCS: 0241U; 36415; 70450; 71045; 80053; 81001; 85025; 87086; 87088; 87186; 96361; 96365; 99285; J0696; J3490; J7030; J7620-GY

== ENCOUNTER 2022-10-19 14:53 | Observation (INO) | payer MEDICARE, OTHER ==
[2022-10-19 15:58] LABS: POTASSIUM,K 3.6 mmol/L (3.5-5.1)
[2022-10-19 16:09] LABS: CORONAVIRUS COVID-19 NAA NEGATIVE (NEGATIVE); INFLUENZA A NAA POSITIVE (NEGATIVE); INFLUENZA B NAA NEGATIVE (NEGATIVE); RESPIRATORY SYNCYTIAL VIR NAA NEGATIVE (NEGATIVE)
[2022-10-19] MEDS ORDERED: Lactated Ringers 1,000 ML IV ONE (16:27)
[2022-10-19] MEDS ORDERED: Albuterol/Ipratropium 3.0-0.5 MG/3 ML Neb Soln NEB ONE (16:28)
[2022-10-19] MEDS ORDERED: Acetaminophen 325 MG Tab PO ONE (16:36)
[2022-10-19] MEDS ORDERED: Acetaminophen 325 MG Tab PO PRN (17:51)
[2022-10-19] MEDS ORDERED: Ondansetron 4 MG/2 ML SDV IVPUSH PRN (17:51)
[2022-10-19] MEDS ORDERED: Polyethylene Glycol 3350 Powder 17 GM Packet PO PRN (17:51)
[2022-10-19] MEDS ORDERED: Albuterol/Ipratropium 3.0-0.5 MG/3 ML Neb Soln NEB PRN ×2 (17:51→17:56)
[2022-10-19 19:26] LABS: CARBON DIOXIDE,CO2 26.3 mmol/L (21.0-32.0); POTASSIUM,K 4.4 mmol/L (3.5-5.1)
[2022-10-19] MEDS: Albuterol/Ipratropium 3.0-0.5 MG/3 ML Neb Soln NEB SCH (19:44)
[2022-10-19] MEDS: Oseltamivir 75 MG Cap PO SCH (19:44)
[2022-10-19] MEDS: Lactated Ringers 1,000 ML IV SCH (19:44)
[2022-10-20] MEDS: Albuterol/Ipratropium 3.0-0.5 MG/3 ML Neb Soln NEB SCH ×4 (00:06→17:42)
[2022-10-20] MEDS: Lactated Ringers 1,000 ML IV SCH ×2 (02:54→13:15)
[2022-10-20 06:38] LABS: CARBON DIOXIDE,CO2 27.9 mmol/L (21.0-32.0); POTASSIUM,K 2.9 mmol/L (3.5-5.1)
[2022-10-20] MEDS ORDERED: Thyroid 60 MG Tab PO SCH (07:30)
[2022-10-20] MEDS ORDERED: Magnesium Sulfate/Water 4 GM in Premix Bag 1 BAG IV ONE ×2 (08:48→13:00)
[2022-10-20] MEDS: Potassium Chloride 20 MEQ Tab.ER PO SCH ×2 (09:09→12:39)
[2022-10-20] MEDS: Oseltamivir 75 MG Cap PO SCH (09:09)
[2022-10-20] MEDS: Potassium Chloride 100 ML IV SCH ×2 (09:09→13:14)
[2022-10-20] MEDS: Tiotropium Bromide 4 GM Inhalation Spray (2.5mcg/1 dose; 10 doses) INH SCH (09:22)
[2022-10-20] MEDS: Fluticasone/Salmeterol 500-50 MCG Inhalation Powder 14/Diskus INH SCH ×3 (09:23→21:34)
[2022-10-20] MEDS: Fluticasone NASAL Spray 16 GM Bottle NASBOTH SCH ×2 (09:37→21:34)
[2022-10-20] MEDS: predniSONE 10 MG Tab PO SCH (09:37)
[2022-10-20] MEDS ORDERED: Glucagon,Human Recombinant 1 MG Vial IM PRN (10:52)
[2022-10-20] MEDS ORDERED: 50% Dextrose in Water 50 ML Syringe IVPUSH PRN (10:52)
[2022-10-20] MEDS: Insulin Aspart 100 Units/ML 3 ML Pen SUBCUT SCH ×2 (11:59→17:04)
[2022-10-20] MEDS ORDERED: LORazepam 2 MG/ML SDV IVPUSH ONE ×2 (12:43→13:27)
[2022-10-20] MEDS ORDERED: LORazepam 0.5 MG Tab PO ONE (12:46)
[2022-10-20] MEDS ORDERED: Gadobenate Dimeglumine 529 MG/ML 20 ML SDV IVPUSH STA (14:32)
[2022-10-20] MEDS: Aspirin 81 MG Tab.Chew PO SCH (17:04)
[2022-10-20] MEDS ORDERED: atorvaSTATin 20 MG Tab PO SCH (21:00)
[2022-10-20] MEDS: Oseltamivir Phosphate 30 MG Capsule PO SCH (21:34)
[2022-10-21] MEDS: Albuterol/Ipratropium 3.0-0.5 MG/3 ML Neb Soln NEB SCH ×3 (00:19→14:16)
[2022-10-21 06:26] LABS: CARBON DIOXIDE,CO2 29.3 mmol/L (21.0-32.0)
[2022-10-21] MEDS: Insulin Aspart 100 Units/ML 3 ML Pen SUBCUT SCH ×2 (07:29→11:17)
[2022-10-21] MEDS ORDERED: Thyroid 60 MG Tab PO SCH ×2 (07:30)
[2022-10-21] MEDS ORDERED: Pantoprazole 40 MG Tab.CR PO SCH (08:15)
[2022-10-21] MEDS ORDERED: Fluconazole 150 MG Tab PO ONE (08:38)
[2022-10-21] MEDS: Oseltamivir Phosphate 30 MG Capsule PO SCH (08:59)
[2022-10-21] MEDS: Aspirin 81 MG Tab.Chew PO SCH (09:00)
[2022-10-21] MEDS: predniSONE 10 MG Tab PO SCH (09:00)
[2022-10-21] MEDS: Fluticasone NASAL Spray 16 GM Bottle NASBOTH SCH (09:00)
[2022-10-21] MEDS: Fluticasone/Salmeterol 500-50 MCG Inhalation Powder 14/Diskus INH SCH (09:00)
[2022-10-21] MEDS ORDERED: Clopidogrel 75 MG Tab PO SCH (09:00)
[2022-10-21 09:04] LABS: HEMOGLOBIN A1C 6.1 %
[2022-10-21] MEDS ORDERED: SPIRIVA HANDIHALER 18 MCG INH SCH (09:15)
[2022-10-21] MEDS: Tiotropium Bromide 4 GM Inhalation Spray (2.5mcg/1 dose; 10 doses) INH SCH (10:06)
[2022-10-21] MEDS ORDERED: Iopamidol 755 MG/ML 500 ML Multipack Bottle IVPUSH STA (10:09)
[2022-10-21 11:15] VITALS: PULSE 104
[2022-10-21 13:02] VITALS: BP 168/68
[2022-10-21] MEDS ORDERED: atorvaSTATin 20 MG Tab PO SCH (21:00)
== END 2022-10-21 12:44 | disposition home health service (06) ==
LOC: MW.ED 14:53 → MW.MS 16:54
PROVIDERS: ADMIT Internal Medicine; ATTEND Internal Medicine
DX: I63.9 Cerebral infarction, unspecified (principal); R41.0 Disorientation, unspecified; J10.1 Influenza due to other identified influenza virus with other respiratory manifestations; J44.9 Chronic obstructive pulmonary disease, unspecified; E03.9 Hypothyroidism, unspecified; J42 Unspecified chronic bronchitis; F41.9 Anxiety disorder, unspecified; F32.A Depression, unspecified; M33.20 Polymyositis, organ involvement unspecified; Z79.899 Other long term (current) drug therapy; Z79.82 Long term (current) use of aspirin; Z79.84 Long term (current) use of oral hypoglycemic drugs; Z88.2 Allergy status to sulfonamides; Z90.49 Acquired absence of other specified parts of digestive tract; Z98.890 Other specified postprocedural states
CPT/HCPCS: 0241U; 36415; 70450; 70496; 70498; 70553; 71045; 80048; 80053; 80061; 81001; 82140; 82607; 82947; 83036; 83605; 83690; 83735; 83880; 83930; 83935; 84100; 84300; 84443; 84484; 85025; 93005; 93306; 94640; 96361; 96365; 96366; 96375; 97161; 99285; A9270; A9577; G0378; J1815; J2060; J3475; J3480; J7120; Q9967; 93010; 96360; J7620-GY

== ENCOUNTER 2023-08-04 17:37 | Inpatient (IN) | payer MEDICARE, OTHER ==
[2023-08-04] MEDS ORDERED: Sodium Chloride 0.9% 1,000 ML IV ONE ×2 (20:41→21:59)
[2023-08-04] MEDS ORDERED: Ondansetron 4 MG/2 ML SDV IVPUSH ONE (20:42)
[2023-08-04] MEDS ORDERED: Ketorolac 30 MG/ML SDV IVPUSH ONE (20:42)
[2023-08-04] MEDS ORDERED: methylPREDNISolone Sodium Succinate 125 MG/2 ML SDV IVPUSH ONE (20:42)
[2023-08-04] MEDS ORDERED: Albuterol/Ipratropium 3.0-0.5 MG/3 ML Neb Soln NEB ONE (20:44)
[2023-08-04 21:43] LABS: BASOPHILS ABSOLUTE AUTO 0.04 K/uL (0.00-0.20); BASOPHILS PERCENT AUTO 0.2 % (0.0-1.0); EOSINOPHILS ABSOLUTE AUTO 0.04 K/uL (0.00-0.45); EOSINOPHILS PERCENT AUTO 0.2 % (0.0-6.0); HEMATOCRIT 33.3 % (37.0-47.0); HEMOGLOBIN 11.7 g/dL (12.0-16.0); IMMATURE GRAN ABSOLUTE AUTO 0.13 K/uL (0.00-0.05); IMMATURE GRAN PERCENT AUTO 0.8 % (0.0-0.4); LYMPHOCYTES ABSOLUTE AUTO 0.84 K/uL (1.00-4.80); LYMPHOCYTES PERCENT AUTO 5.2 % (24.0-44.0); MEAN CORPUSCULAR HEMOGLOBIN 29.8 pg (28.0-32.0); MEAN CORPUSCULAR HGB CONC 35.1 g/dL (32.0-36.0); MEAN CORPUSCULAR VOLUME 84.7 fL (83.0-99.0); MEAN PLATELET VOLUME 9.8 fL (9.4-12.3); MONOCYTES ABSOLUTE AUTO 1.47 K/uL (0.00-0.80); MONOCYTES PERCENT AUTO 9.1 % (0.0-8.0); NEUTROPHILS ABSOLUTE AUTO 13.64 K/uL (1.80-7.70); NEUTROPHILS PERCENT AUTO 84.5 % (41.0-71.0); PLATELET COUNT,PLT 511 K/uL (150-400); RED BLOOD CELL COUNT 3.93 M/uL (4.10-5.30); WHITE BLOOD CELL COUNT,WBC 16.16 K/uL (3.9-11.3)
[2023-08-04 21:45] LABS: A/G RATIO 0.5 (0.9-1.6); ALBUMIN 2.8 g/dL (3.4-5.0); BILIRUBIN TOTAL 0.5 mg/dL (0.2-1.0); CALCIUM 8.5 mg/dL (8.5-10.1); CARBON DIOXIDE,CO2 23.4 mmol/L (21.0-32.0); CREATININE 1.9 mg/dL (0.6-1.0); EST CRCL DRUG DOSING (CG) 23.23 mL/min; POTASSIUM,K 2.9 mmol/L (3.5-5.1); PROTEIN TOTAL,TP 8.1 g/dL (6.4-8.2)
[2023-08-04 22:08] LABS: HEMOGLOBIN A1C 6.4 %
[2023-08-04] MEDS ORDERED: Morphine 4 MG/ML Syringe IVPUSH ONE (22:42)
[2023-08-04] MEDS ORDERED: Iopamidol 755 MG/ML 500 ML Multipack Bottle IVPUSH ONE (23:15)
[2023-08-04 23:43] LABS: CORONAVIRUS COVID-19 NAA NEGATIVE (NEGATIVE); INFLUENZA A NAA NEGATIVE (NEGATIVE); INFLUENZA B NAA NEGATIVE (NEGATIVE)
[2023-08-05 00:03] LABS: APPEARANCE,URINE SLT CLOUDY; BILIRUBIN,URINE NEGATIVE (NEGATIVE); COLOR,URINE YELLOW; GLUCOSE,URINE NEGATIVE (NEGATIVE); KETONES,URINE NEGATIVE (NEGATIVE); LEUKOCYTE ESTERASE,URINE SMALL (NEGATIVE); NITRITE,URINE NEGATIVE (NEGATIVE); OCCULT BLOOD,URINE MODERATE (NEGATIVE); PROTEIN,URINE NEGATIVE (NEGATIVE); UROBILINOGEN,URINE 0.2 EU/dL (<2.0)
[2023-08-05 00:14] LABS: BACTERIA,URINE 2+ (NEGATIVE); EPITHELIAL CELLS,URINE FEW (NONE-FEW)
[2023-08-05] MEDS ORDERED: Cefepime 2 GM in Sodium Chloride 0.9% 50 ML IV ONE (00:23)
[2023-08-05] MEDS ORDERED: Potassium Chloride 20 MEQ Tab.ER PO ONE (00:24)
[2023-08-05] MEDS ORDERED: Acetaminophen 325 MG Tab PO PRN (03:16)
[2023-08-05] MEDS ORDERED: Glucagon,Human Recombinant 1 MG Vial IM PRN (03:17)
[2023-08-05] MEDS ORDERED: 50% Dextrose in Water 50 ML Syringe IVPUSH PRN (03:17)
[2023-08-05] MEDS: Azithromycin 500 MG in Sodium Chloride 0.9% 250 ML IV SCH (03:31)
[2023-08-05 06:25] LABS: BASOPHILS ABSOLUTE AUTO 0.01 K/uL (0.00-0.20); BASOPHILS PERCENT AUTO 0.1 % (0.0-1.0); HEMATOCRIT 28.7 % (37.0-47.0); IMMATURE GRAN ABSOLUTE AUTO 0.08 K/uL (0.00-0.05); IMMATURE GRAN PERCENT AUTO 0.8 % (0.0-0.4); LYMPHOCYTES ABSOLUTE AUTO 0.33 K/uL (1.00-4.80); LYMPHOCYTES PERCENT AUTO 3.2 % (24.0-44.0); MEAN CORPUSCULAR HEMOGLOBIN 29.9 pg (28.0-32.0); MEAN CORPUSCULAR HGB CONC 34.8 g/dL (32.0-36.0); MEAN CORPUSCULAR VOLUME 85.7 fL (83.0-99.0); MEAN PLATELET VOLUME 9.5 fL (9.4-12.3); MONOCYTES ABSOLUTE AUTO 0.15 K/uL (0.00-0.80); MONOCYTES PERCENT AUTO 1.5 % (0.0-8.0); NEUTROPHILS ABSOLUTE AUTO 9.63 K/uL (1.80-7.70); NEUTROPHILS PERCENT AUTO 94.4 % (41.0-71.0); PLATELET COUNT,PLT 416 K/uL (150-400); RED BLOOD CELL COUNT 3.35 M/uL (4.10-5.30)
[2023-08-05] MEDS: Albuterol/Ipratropium 3.0-0.5 MG/3 ML Neb Soln NEB SCH ×3 (07:15→18:27)
[2023-08-05] MEDS: Insulin Aspart 100 Units/ML 3 ML Pen SUBCUT SCH ×3 (07:44→16:47)
[2023-08-05 08:17] LABS: CALCIUM 8.1 mg/dL (8.5-10.1); CARBON DIOXIDE,CO2 17.3 mmol/L (21.0-32.0); CREATININE 1.9 mg/dL (0.6-1.0); EST CRCL DRUG DOSING (CG) 23.73 mL/min; POTASSIUM,K 4.6 mmol/L (3.5-5.1)
[2023-08-05] MEDS: Lactated Ringers 1,000 ML IV SCH ×2 (08:45→17:30)
[2023-08-05] MEDS: Aspirin 81 MG Tab.Chew PO SCH (08:58)
[2023-08-05] MEDS: Pantoprazole 40 MG Tab.CR PO SCH (08:58)
[2023-08-05] MEDS ORDERED: Clopidogrel 75 MG Tab PO SCH (09:00)
[2023-08-05] MEDS: Thyroid 15 MG Tablet PO SCH (09:47)
[2023-08-05] MEDS: Cefepime 2 GM in Sodium Chloride 0.9% 50 ML IV SCH ×3 (11:49→20:00)
[2023-08-05 14:47] LABS: CALCIUM 8.6 mg/dL (8.5-10.1); CARBON DIOXIDE,CO2 21.4 mmol/L (21.0-32.0); CREATININE 1.9 mg/dL (0.6-1.0); EST CRCL DRUG DOSING (CG) 23.73 mL/min; POTASSIUM,K 4.4 mmol/L (3.5-5.1)
[2023-08-05] MEDS: atorvaSTATin 20 MG Tab PO SCH ×2 (19:47→20:00)
[2023-08-05] MEDS ORDERED: atorvaSTATin 20 MG Tab PO SCH (21:00)
[2023-08-06] MEDS: Albuterol/Ipratropium 3.0-0.5 MG/3 ML Neb Soln NEB SCH ×3 (00:13→11:19)
[2023-08-06] MEDS: Lactated Ringers 1,000 ML IV SCH (01:45)
[2023-08-06] MEDS: Azithromycin 500 MG in Sodium Chloride 0.9% 250 ML IV SCH (03:57)
[2023-08-06 06:21] LABS: BASOPHILS ABSOLUTE AUTO 0.02 K/uL (0.00-0.20); BASOPHILS PERCENT AUTO 0.1 % (0.0-1.0); EOSINOPHILS ABSOLUTE AUTO 0.01 K/uL (0.00-0.45); EOSINOPHILS PERCENT AUTO 0.1 % (0.0-6.0); HEMATOCRIT 24.2 % (37.0-47.0); HEMOGLOBIN 8.6 g/dL (12.0-16.0); IMMATURE GRAN PERCENT AUTO 1.3 % (0.0-0.4); LYMPHOCYTES ABSOLUTE AUTO 0.93 K/uL (1.00-4.80); LYMPHOCYTES PERCENT AUTO 6.2 % (24.0-44.0); MEAN CORPUSCULAR HGB CONC 35.5 g/dL (32.0-36.0); MEAN CORPUSCULAR VOLUME 84.3 fL (83.0-99.0); MEAN PLATELET VOLUME 9.4 fL (9.4-12.3); MONOCYTES ABSOLUTE AUTO 1.11 K/uL (0.00-0.80); MONOCYTES PERCENT AUTO 7.4 % (0.0-8.0); NEUTROPHILS ABSOLUTE AUTO 12.71 K/uL (1.80-7.70); NEUTROPHILS PERCENT AUTO 84.9 % (41.0-71.0); PLATELET COUNT,PLT 451 K/uL (150-400); RED BLOOD CELL COUNT 2.87 M/uL (4.10-5.30); WHITE BLOOD CELL COUNT,WBC 14.98 K/uL (3.9-11.3)
[2023-08-06] MEDS: Pantoprazole 40 MG Tab.CR PO SCH (06:30)
[2023-08-06 06:48] LABS: ALBUMIN 2.2 g/dL (3.4-5.0); BILIRUBIN TOTAL 0.2 mg/dL (0.2-1.0); CALCIUM 8.6 mg/dL (8.5-10.1); CREATININE 1.4 mg/dL (0.6-1.0); EST CRCL DRUG DOSING (CG) 32.2 mL/min; MAGNESIUM 2.1 mg/dL (1.8-2.4); POTASSIUM,K 4.2 mmol/L (3.5-5.1); PROTEIN TOTAL,TP 5.6 g/dL (6.4-8.2)
[2023-08-06 06:49] LABS: A/G RATIO 0.7 (0.9-1.6)
[2023-08-06] MEDS: Insulin Aspart 100 Units/ML 3 ML Pen SUBCUT SCH ×2 (07:43→11:16)
[2023-08-06] MEDS: Thyroid 15 MG Tablet PO SCH (08:45)
[2023-08-06] MEDS: Aspirin 81 MG Tab.Chew PO SCH (08:45)
[2023-08-06] MEDS: Cefepime 2 GM in Sodium Chloride 0.9% 50 ML IV SCH (08:46)
[2023-08-06 13:26] VITALS: BP 123/55
[2023-08-06 14:06] VITALS: PULSE 88
== END 2023-08-06 14:55 | disposition home or self-care (01) | DRG 871 ==
LOC: MW.ED 17:37 → MW.MS 08-05 00:30
PROVIDERS: ADMIT Internal Medicine; ATTEND Internal Medicine
DX: A41.9 Sepsis, unspecified organism (principal); J18.9 Pneumonia, unspecified organism; J96.01 Acute respiratory failure with hypoxia; N17.9 Acute kidney failure, unspecified; J44.1 Chronic obstructive pulmonary disease with (acute) exacerbation; J44.0 Chronic obstructive pulmonary disease with (acute) lower respiratory infection; N30.00 Acute cystitis without hematuria; R65.20 Severe sepsis without septic shock; E78.00 Pure hypercholesterolemia, unspecified; E03.9 Hypothyroidism, unspecified; F41.9 Anxiety disorder, unspecified; F32.A Depression, unspecified; E11.9 Type 2 diabetes mellitus without complications; Z66 Do not resuscitate; E86.0 Dehydration; K21.9 Gastro-esophageal reflux disease without esophagitis; R31.9 Hematuria, unspecified; Z79.899 Other long term (current) drug therapy; Z79.82 Long term (current) use of aspirin; Z11.52 Encounter for screening for COVID-19; Z79.52 Long term (current) use of systemic steroids; Z79.2 Long term (current) use of antibiotics; Z86.73 Personal history of transient ischemic attack (TIA), and cerebral infarction without residual deficits; Z88.8 Allergy status to other drugs, medicaments and biological substances; Z97.3 Presence of spectacles and contact lenses; Z98.42 Cataract extraction status, left eye; Z98.41 Cataract extraction status, right eye; I25.2 Old myocardial infarction; Z86.010 Personal history of colon polyps; Z87.442 Personal history of urinary calculi; Z79.4 Long term (current) use of insulin; Z86.16 Personal history of COVID-19; Z90.89 Acquired absence of other organs; Z90.710 Acquired absence of both cervix and uterus; Z87.01 Personal history of pneumonia (recurrent); Z90.722 Acquired absence of ovaries, bilateral; Z98.1 Arthrodesis status; Z90.49 Acquired absence of other specified parts of digestive tract; Z82.5 Family history of asthma and other chronic lower respiratory diseases; Z83.6 Family history of other diseases of the respiratory system; Z82.61 Family history of arthritis; Z83.3 Family history of diabetes mellitus; Z80.0 Family history of malignant neoplasm of digestive organs; Z80.1 Family history of malignant neoplasm of trachea, bronchus and lung; Z87.891 Personal history of nicotine dependence
CPT/HCPCS: 0240U; 36415; 71275; 71275-26; 74177; 74177-26; 80048; 80053; 81001; 82947; 83036; 83605; 83735; 84484; 85025; 85379; 87040; 87086; 94640; 96361; 96374; 96375; 97162-GP; 99284-25; 99291; A9270-GY; J0456; J0692; J1815-GY; J1885; J2270; J2405; J2930; J3490; J7030; J7050; J7120; J7620-GY; Q9967